=== PATIENT | male | born 1985 | race Caucasian/White ===

== ENCOUNTER 2017-03-11 16:06 | Emergency (ER) | payer OTHER ==
[~2017-03-11] VITALS: Ht 195.6 cm; Wt 93.2 kg
[2017-03-11] MEDS ORDERED: ADVI200C5 PO (16:13)
[2017-03-11] MEDS ORDERED: PERCOCET 5MG/325MG TAB PO ONE (16:45)
[2017-03-11] MEDS ORDERED: KETOROLAC 60 MG/2 ML VIAL (J1885) IM ONE (16:45)
[2017-03-11] MEDS ORDERED: diazePAM 5 MG TAB PO ONE (16:45)
[2017-03-11] MEDS ORDERED: CYCL10TA PO (17:38)
[2017-03-11 17:45] VITALS: BP 131/87
--- NOTE | 2017-03-12 06:43 | REP ---
LUMBAR SPINE COMPLETE: 03/11/2017. Clinical history: Back pain, spasm. Findings: No prior study. The five views show pedicles, spinous and transverse processes intact. Sacral ala, foramina and SI joints unremarkable. Lower thoracic spine and ribs visible were also intact. Oblique views show no sign of spondylolysis or spondylolisthesis. Disc space heights are narrowed at L3-4 and minimally at L5-S1. No compression deformity of destructive lesion seen. Normal lordosis maintained. Impression: 1. Degenerative disc changes with mild disc space narrowing at L3-4 and L5-S1. No spondylolysis or spondylolisthesis. 2. No compression deformity, destructive bone lesion or other acute finding. Signed by Mauricio Mahoney MD 03/12/2017 07:57 A
== END 2017-03-11 17:48 | disposition home or self-care (01) ==
LOC: M ED 16:06
DX: M47.817 Spondylosis without myelopathy or radiculopathy, lumbosacral region (principal)
CPT/HCPCS: 72110; 96372; 99282; J1885

== ENCOUNTER 2017-10-07 08:14 | Emergency (ER) | payer OTHER ==
[2017-10-07] MEDS: AUGMENTIN 875 MG TAB PO (09:18)
== END 2017-10-07 09:23 | disposition home or self-care (01) ==
LOC: M ED 08:14
DX: J01.90 Acute sinusitis, unspecified (principal); Z98.890 Other specified postprocedural states
CPT/HCPCS: 87880

== ENCOUNTER 2019-07-24 13:23 | Emergency (ER) | payer OTHER ==
[~2019-07-24] VITALS: Ht 195.6 cm; Wt 123.6 kg
[~2019-07-24 13:23] MED LIST: ADVI200C5 PO; AUGM875T28 PO; CYCL10TA PO; IBUP1TAB7 PO; MUCI600T37 PO
[2019-07-24] MEDS ORDERED: NS 1,000 ML IV ONE (14:30)
[2019-07-24 14:38] LABS: BASO # 0.1 10^3/uL (0.0-0.2); BASO % 0.8 % (0.0-1.0); EOS # 0.2 10^3/uL (0.0-0.5); HEMATOCRIT 52.1 % (42.0-52.0); HEMOGLOBIN 17.2 g/dl (13.5-17.5); LYMPH # 1.5 10^3/uL (1.5-5.0); LYMPH % 19.6 % (24.0-44.0); MEAN CORPUSCULAR HEMOGLOBIN 32.3 pg (27.0-33.0); MEAN CORPUSCULAR VOLUME 97.7 fl (80.0-96.0); MONO # 0.7 10^3/uL (0.0-0.8); MONO % 9.4 % (0.0-5.0); NEUTROPHILS # 5.1 10^3/uL (1.5-8.5); NEUTROPHILS % 67.9 % (36.0-66.0); PLATELET COUNT, AUTOMATED 297 10^3/uL (150-450); RED BLOOD COUNT 5.33 10^6/uL (4.30-6.10); WHITE BLOOD COUNT 7.5 10^3/uL (4.0-10.0)
[2019-07-24] MEDS: GASTROGRAFIN SOLUTION 30ML PO SCH ×2 (15:08→15:27)
[2019-07-24 15:12] LABS: ALBUMIN 4.6 GM/DL (3.2-5.2); ALT/SGPT 136 U/L (12-78); BILIRUBIN,DIRECT 0.2 MG/DL (0.0-0.2); BILIRUBIN,TOTAL 0.6 MG/DL (0.2-1.0); BLOOD UREA NITROGEN 13 MG/DL (7-18); CALCIUM LEVEL 9.5 MG/DL (8.5-10.1); CARBON DIOXIDE LEVEL 21 MEQ/L (21-32); CHLORIDE LEVEL 108 MEQ/L (98-107); CREATININE FOR GFR 1.07 MG/DL (0.70-1.30); GLOMERULAR FILTRATION RATE > 60.0 (>60); GLUCOSE, FASTING 94 MG/DL (70-100); LIPASE 132 U/L (73-393); POTASSIUM SERUM 4.3 MEQ/L (3.5-5.1); SODIUM LEVEL 140 MEQ/L (136-145); TOTAL PROTEIN 8.6 GM/DL (6.4-8.2)
[2019-07-24] MEDS ORDERED: ISOVUE-370 76% 100ML VIAL (Q9967) As Ordered ONE (17:23)
[2019-07-24] MEDS ORDERED: FLAG500T PO (19:46)
[2019-07-24] MEDS ORDERED: CIPR-249 PO (19:46)
[2019-07-24] MEDS ORDERED: metroNIDAZOLE (FLAGYL) 500 MG TAB PO ONE (20:00)
[2019-07-24] MEDS ORDERED: CIPROFLOXACIN 500 MG TAB PO ONE (20:00)
[2019-07-24 20:04] VITALS: BP 158/105
== END 2019-07-24 20:06 | disposition home or self-care (01) ==
LOC: M ED 13:23
DX: K42.9 Umbilical hernia without obstruction or gangrene (principal); K52.89 Other specified noninfective gastroenteritis and colitis
CPT/HCPCS: 74177; 80048; 80076; 83605; 83690; 85025; 86850; 86900; 86901; 96360; 96361; 99284; Q9963; Q9967

== ENCOUNTER → 2020-08-17 | Outpatient (CLI) | payer SELFPAY ==
[~2020-08-17] MED LIST changes: +ACET-683 PO; +ACET-897 PO; +CIPR-249 PO; +CYCL-707 PO; -CYCL10TA PO; +FLAG500T PO; +MELA2.5C2 PO
== END ==
LOC: M LABSMTC 10:53
PROVIDERS: ATTEND Pediatrics
DX: Z20.822 Contact with and (suspected) exposure to COVID-19 (principal)

== ENCOUNTER 2020-08-19 18:50 | Observation (INO) | payer OTHER, SELFPAY ==
[~2020-08-19] VITALS: Ht 195.6 cm; Wt 135.5 kg
[~2020-08-19 18:50] MED LIST changes: -ACET-683 PO; -ACET-897 PO; -MELA2.5C2 PO
--- OUTSIDE RECORDS SUMMARY | 2020-08-19 18:56 | CCD ---
Author Author [facility] Organization [facility] Address Unknown Phone Unavailable Care Team Providers Care Apron Trimmer Name Role Phone Joaquin ROBLES MD Unavailable Unavailable Joaquin ROBLES MD Unavailable Unavailable Joaquin ROBLES MD Unavailable Unavailable Joaquin ROBLES MD Unavailable Unavailable Joaquin ROBLES MD Unavailable Unavailable Joaquin ROBLES MD Unavailable Unavailable Joaquin ROBLES MD Unavailable Unavailable Joaquin ROBLES MD Unavailable Unavailable Joaquin ROBLES MD Unavailable Unavailable Joaquin ROBLES MD Unavailable Unavailable Joaquin ROBLES MD Unavailable Unavailable Joaquin ROBLES MD Unavailable Unavailable Joaquin ROBLES MD Unavailable Unavailable Josefina Pimentel PA Unavailable Unavailable Myrna Zarco MD Unavailable Unavailable Myrna Zarco MD Unavailable Unavailable Myrna Zarco MD Unavailable Unavailable Myrna Zarco MD Unavailable Unavailable Myrna Zarco MD Unavailable Unavailable Myrna Zarco MD Unavailable Unavailable Myrna Zarco MD Unavailable Unavailable Myrna Zarco MD Unavailable Unavailable Myrna Zarco MD Unavailable Unavailable Chance Patrick DO Unavailable Unavailable SILVANO, ABDIRAHMAN PA Unavailable Unavailable SILVANO, ABDIRAHMAN PA Unavailable Unavailable SILVANO, ABDIRAHMAN PA Unavailable Unavailable SILVANO, ABDIRAHMAN PA Unavailable Unavailable SILVANO, ABDIRAHMAN PA Unavailable Unavailable SILVANO, ABDIRAHMAN PA Unavailable Unavailable SILVANO, ABDIRAHMAN PA Unavailable Unavailable SILVANO, ABDIRAHMAN PA Unavailable Unavailable SILVANO, ABDIRAHMAN PA Unavailable Unavailable SILVANO, ABDIRAHMAN PA Unavailable Unavailable Johnny Patterson DO Unavailable Unavailable [place], Johnny DO Unavailable Unavailable [place], Johnny DO Unavailable Unavailable [place], Johnny DO Unavailable Unavailable Leonardo, Johnny DO Unavailable Unavailable Varsha Auguste MD Unavailable Unavailable Chance Patrick DO Unavailable Unavailable NOSTROM, CHETNA PRODUCTION SUPV Unavailable Unavailable NOSTROM, CHETNA PRODUCTION SUPV Unavailable Unavailable NOSTROM, CHETNA PRODUCTION SUPV Unavailable Unavailable NOSTROM, CHETNA PRODUCTION SUPV Unavailable Unavailable NOSTROM, CHETNA PRODUCTION SUPV Unavailable Unavailable NOSTROM, CHETNA PRODUCTION SUPV Unavailable Unavailable NOSTROM, CHETNA PRODUCTION SUPV Unavailable Unavailable NOSTROM, CHETNA PRODUCTION SUPV Unavailable Unavailable NOSTROM, CHETNA PRODUCTION SUPV Unavailable Unavailable NOSTROM, CHETNA PRODUCTION SUPV Unavailable Unavailable NOSTROM, CHETNA PRODUCTION SUPV Unavailable Unavailable NOSTROM, CHETNA PRODUCTION SUPV Unavailable Unavailable NOSTROM, CHETNA PRODUCTION SUPV Unavailable Unavailable YOUNG, A GEENA QUEEN PRODUCER Unavailable Unavailable YOUNG, A GEENA QUEEN PRODUCER Unavailable Unavailable YOUNG, A GEENA QUEEN PRODUCER Unavailable Unavailable YOUNG, A GEENA QUEEN PRODUCER Unavailable Unavailable YOUNG, A GEENA QUEEN PRODUCER Unavailable Unavailable Yves Arevalo QUEEN PRODUCER Unavailable Unavailable Fabricio CHAVEZ MD Unavailable Unavailable Fabricio CHAVEZ MD Unavailable Unavailable Fabricio CHAVEZ MD Unavailable Unavailable Fabricio CHAVEZ MD Unavailable Unavailable Fabricio CHAVEZ MD Unavailable Unavailable Fabricio CHAVEZ MD Unavailable Unavailable Fabricio CHAVEZ MD Unavailable Unavailable Fabricio CHAVEZ MD Unavailable Unavailable Fabricio CHAVEZ MD Unavailable Unavailable Fabricio CHAVEZ MD Unavailable Unavailable Fabricio CHAVEZ MD Unavailable Unavailable Fabricio CHAVEZ MD Unavailable Unavailable Fabricio CHAVEZ MD Unavailable Unavailable Fabricio CHAVEZ MD Unavailable Unavailable Fabricio CHAVEZ MD Unavailable Unavailable Fabricio CHAVEZ MD Unavailable Unavailable Fabricio CHAVEZ MD Unavailable Unavailable Fabricio CHAVEZ MD Unavailable Unavailable Fabricio CHAVEZ MD Unavailable Unavailable Fabricio CHAVEZ MD Unavailable Unavailable Fabricio CHAVEZ MD Unavailable Unavailable Fabricio CHAVEZ MD Unavailable Unavailable Fabricio CHAVEZ MD Unavailable Unavailable Fabricio CHAVEZ MD Unavailable Unavailable Fabricio CHAVEZ MD Unavailable Unavailable Fabricio CHAVEZ MD Unavailable Unavailable Fabricio CHAVEZ MD Unavailable Unavailable Fabricio CHAVEZ MD Unavailable Unavailable Fabricio CHAVEZ MD Unavailable Unavailable Fabricio CHAVEZ MD Unavailable Unavailable Fabricio CHAVEZ MD Unavailable Unavailable Fabricio CHAVEZ MD Unavailable Unavailable Fabricio CHAVEZ MD Unavailable Unavailable Fabricio CHAVEZ MD Unavailable Unavailable Fabricio CHAVEZ MD Unavailable Unavailable Fabricio CHAVEZ MD Unavailable Unavailable Fabricio CHAVEZ MD Unavailable Unavailable Fabricio CHAVEZ MD Unavailable Unavailable Fabricio CHAVEZ MD Unavailable Unavailable LORALEX BOWDEN MD Unavailable Unavailable LORKAL, ALEX MD Unavailable Unavailable LORENC, ALEX MD Unavailable Unavailable LORENC, ALEX MD Unavailable Unavailable LORENC, ALEX MD Unavailable Unavailable LORENC, ALEX MD Unavailable Unavailable LORENC, ALEX MD Unavailable Unavailable Isma Carrillo MD Unavailable Unavailable Isma Carrillo MD Unavailable Unavailable Isma Carrillo MD Unavailable Unavailable MILADIS, IMTIAZ PA Unavailable Unavailable MILADIS, IMTIAZ PA Unavailable Unavailable MILADIS, IMTIAZ PA Unavailable Unavailable MILADIS, IMTIAZ PA Unavailable Unavailable MILADIS, IMTIAZ PA Unavailable Unavailable MILADIS, IMTIAZ PA Unavailable Unavailable MILADIS, IMTIAZ PA Unavailable Unavailable MILADIS, IMTIAZ PA Unavailable Unavailable MILADIS, IMTIAZ PA Unavailable Unavailable MILADIS, IMTIAZ PA Unavailable Unavailable MILADIS, IMTIAZ PA Unavailable Unavailable MILADIS, IMTIAZ PA Unavailable Unavailable MILADIS, IMTIAZ PA Unavailable Unavailable MILADIS, IMTIAZ PA Unavailable Unavailable MILADIS, IMTIAZ PA Unavailable Unavailable Hayes Ortiz Unavailable Unavailable NO, PCP Unavailable Unavailable Re-disclosure Warning The records that you are about to access may contain information from federally-assisted alcohol or drug abuse programs. If such information is present, then the following federally mandated warning applies: This information has been disclosed to you from records protected by federal confidentiality rules (42 CFR part 2). The federal rules prohibit you from making any further disclosure of this information unless further disclosure is expressly permitted by the written consent of the person to whom it pertains or as otherwise permitted by 42 CFR part 2. A general authorization for the release of medical or other information is NOT sufficient for this purpose. The Federal rules restrict any use of the information to criminally investigate or prosecute any alcohol or drug abuse patient.The records that you are about to access may contain highly sensitive health information, the redisclosure of which is protected by Article 27-F of the [facility] Public Health law. If you continue you may have access to information: Regarding HIV / AIDS; Provided by facilities licensed or operated by the [facility] Office of Mental Health; or Provided by the [facility] Office for People With Developmental Disabilities. If such information is present, then the following [facility] mandated warning applies: This information has been disclosed to you from confidential records which are protected by state law. State law prohibits you from making any further disclosure of this information without the specific written consent of the person to whom it pertains, or as otherwise permitted by law. Any unauthorized further disclosure in violation of state law may result in a fine or long term sentence or both. A general authorization for the release of medical or other information is NOT sufficient authorization for further disc losure. Allergies and Adverse Reactions Type Description Substance Reaction Status Data Source(s ) No Known Drug Allergies No Known Drug Allergies [facility] No Known Environmental Allergies No Known Environmental Al lergies [facility] No Known Food Allergies No Known Food Allergies [facility] Family History Family Member Name Family Member Gender Family Member Status Date o f Status Description Data Source(s) Unknown Male Problem [facility] ([facility]) Encounters Encounter Providers Location Date Indications Data Source(s ) Outpatient Attender: VIJAY CHAVEZ MD [facility] 10/2019 08:14:00 PM EDT - 04/08/2020 08:15:00 PM EDT Z11.59 [facility] Z11.59 Patient discharged. Outpatient Attender: GEENA MELENDEZP [facility] 01:31:00 PM EDT - 03/31/2020 01:32:00 PM EDT Z11.59 [facility] Z11.59 Patient discharged. Emergency Attender: Chetna Ortiz RN PAttender: CHETNA ORTIZ NPAttender: ALEX MARISCAL MD [facility] 11/29/2019 03:35:00 AM EDT - 11/29/2019 04:12:00 AM EDT COUGH [facility] COUGH Patient discharged. Outpatient Attender: Abdirahman Pimentel PAAttender: ELIZABETH GONZALEZ [facility] 11/09/2019 02:44:00 PM EDT - 11/09/2019 02:45:00 PM EDT R05 [facility] R05 Patient discharged. Outpatient Attender: CARRIE ROBLES MDConsultant: PCP NO 09/11/2019 02:35:00 PM EST - 09/11/2019 02:35:00 PM EST [facility] Emergency Attender: Larisa Auguste MDAttender: Jace gifford MD [facility]-ED 08/07/2019 07:36:00 PM EST - 08/08/2019 02:10:00 AM EST ABDOMINAL PAIN, RECTAL BLEEDING [facility] ABDOMINAL PAIN, RECTAL BLEEDING Patient discharged. Emergency Attender: Chance Patrick DOAttender: Chance trinidad DO [facility] 07/21/2019 10:58:00 PM EST - 07/22/2019 12:16:00 AM EST POST SURGICAL PAIN [facility] POST SURGICAL PAIN Patient discharged. Emergency Attender: Johnny Patterson DOAttender: IMTIAZ RILEY CARLOS [facility]-ED 07/10/2019 10:55:00 PM EST - 07/11/2019 01:44:00 AM EST RECTAL FOREIGN BODY [facility] RECTAL FOREIGN BODY Patient discharged. Outpatient Attender: Monik Zarco MD [facility] 06/27 10:32:00 AM EST - 06/27/2019 10:33:00 AM EST A63.0 [facility] A63.0 Patient discharged. Emergency Attender: Korin Arevalo FNPAtte nder: Jace Carrillo MDReferrer: Monik Zarco MD [facility] 06/16/2019 09:55:00 AM EST - 06/16/2019 01:02:00 PM EST WEAKNESS/HOT-COLD CHILLS/ANAL FISTUAL REPAIR 06/03 [facility] WEAKNESS/HOT-COLD CHILLS/ANAL FISTUAL RE PAIR 06/03 Patient discharged. Insurance Providers Payer name Policy type / Coverage type Policy ID Covered democrat ID Covered democrat's relationship to wallis Policy Wallis Plan Information [employer] [id number] SP [id number] SELF PAY ONLY [id number] SP [id number] [facility] [id number] Other [id number] [facility] [id number] Other [id number] [facility] [place] [id number] 18 [id number] [facility] [employer] [place] [id number] 18 [id number] ACTIVE DUTY [id number] SP [id number] [facility] [employer] [id number] Self [id number] SELF PAY UNAVAILABLE UNAVAILA BLE Problems, Conditions, and Diagnoses Code Display Name Description Problem Type Effective Dates Data Source(s) Z20.828 Contact with and (suspected) exposure to other viral communicable diseases CONTACT W AND EXPOSURE TO OTH VIRAL COMMUNICABLE DISEASES Di agnosis 03/31/2020 01:31:00 PM EDT [facility] K605 Anorectal fistula Anorectal fistula Diagnosis 09/11/2019 02:35:00 PM [facility] F17.290 Nicotine dependence, other tobacco produ ct, uncomplicated NICOTINE DEPENDENCE, OTHER TOBACCO PRODUCT, UNCOMPLICATED Diagnosis 08/07 07:36:00 PM [facility] Z09 Encounter for follow-up exam ination after completed treatment for conditions other than malignant neoplasm ENCNTR FOR F/U EXAM AFT TRTMT FOR COND O TH THAN MALIG NEOPLM Diagnosis 08/07/2019 07:36:00 PM [facility] K62.89 Other specified diseases of anus and rec xochitl OTHER SPECIFIED DISEASES OF ANUS AND RECTUM Diagnosis 08/07/2019 07:36:00 PM [facility] Surgeries/Procedures Procedure Description Date Indications Data Source(s) [id number] 11/29/2019 12:00:00 AM EDT [facility] EMERGENCY DEPARTMENT VISIT MODERATE SEVERITY EMERGENCY DEPT VISIT [facility]CONTRAST MATERIAL CT ABD & PELV W/CONTR AST 08/07/2019 12:00:00 AM [facility] Low osmolar contrast material, 300-399 mg/ml iodine concentr ation, per ml 08/07/2019 12:00:00 AM [facility] CULTURE BACTERIAL BLOOD AEROBIC W/ID ISOLATES BLOOD CULTURE FOR BACTERIA 08/07/2019 12:00:00 AM [facility] BLOOD COUNT COMPLETE AUTO&AUTO DIFRNTL WBC COUNT COMPLETE CB C W/AUTO DIFF WBC 08/07/2019 12:00:00 AM [facility] LACTATE ASSAY OF LACTIC ACID 08/07/2019 12:00:00 AM [facility] C-REACTIVE PROTEIN C-REACTIVE PROTEIN 08/07/2019 12:00:00 AM [facility] COMPREHENSIVE METABOLIC PANEL COMPREHEN METABOLIC PANEL 09/2019 12:00:00 AM [facility] COLLECTION VENOUS BLOOD VENIPUNCTURE ROUTINE VENIPUNCTURE 12:00:00 AM [facility] EMERGENCY DEPARTMENT VISIT HIGH/URGENT SEVERITY EMERGENCY DE PT VISIT 08/07/2019 12:00:00 AM [facility] EMERGENCY DEPARTMENT VISIT LIMITED/MINOR PROB EMERGENCY DEPT VISIT 07/21/2019 12:00:00 AM [facility] Results ID Date Data Source [id number] 04/11/2020 10:53:00 AM EDT [facility] COVID-19 Patient Ethnicity Not or LatinoCOVID-19 Patient Race WhiteCOVID-19 Specimen Source Nasopharyngeal Name Value Range Interpretation Code Description Data Kat rce(s) Supporting Document(s) SARS-CoV-2 RNA Undetected Normal (applies to non-numeric r esults) [facility] SARS-CoV-2 RNA absent. This result does not rule out COVID-19 in the patient, as the sensitivity of the test depends on the timing of the specimen collection and the quality of the specimen. Result should be correlated with patient's history and clinical presentation. Patient Race Normal (applies to non-numeric res ults) [facility] Patient Ethnicity Normal (applies to non-numeri c results) [facility] Method Summary Normal (applies to non-numeric r esults) [facility] BELLA- This test uses the bella SARS-CoV -2 assay ([employer] and is performed on the bella 6800 System. It has received Emergency Use Authorization (EUA) by the U.S. Food and Drug Administration. Performance characteristics were verified by [facility] in a manner consistent with CLIA requirements. Fact sheets for this Emergency Use Authorization (EUA) can be found at the following links: https://www.fda.gov/media/217703/download for Healthcare Providers https://www.fda.gov/media/804407/download for Patients Test Performed by: [address] [address] [employer] Operator: Chetna Ziegler M.D. Ph.D.; CLIA# [id number] ID Date Data Source [id number] 04/08/2020 02:50:00 PM EDT [facility] Name Value Range Interpretation Code Description Data Kat rce(s) Supporting Document(s) SARS-CoV-2 RNA Resp Ql CONCEPCION+probe [facility] This lab was ordered by [facility] wong and reported by [facility]. ID Date Data Source [id number] 03/31/2020 01:31:00 PM EDT [facility] Name Value Range Interpretation Code Description Data Kat rce(s) Supporting Document(s) SARS coronavirus 2 RNA [facility] This lab was ordered by [facility] wong and reported by [facility]. ID Date Data Source [id number] 04/03/2020 08:23:00 AM EDT [facility] Name Value Range Interpretation Code Description Data Kat rce(s) Supporting Document(s) SARS-CoV-2 CONCEPCION result Not Detected Normal (applies to non- numeric results) [facility] This test was developed and its performa nce characteristics determined by [facility]. This test has not been FDA cleared or approved. This test has been authorized by FDA under an Emergency Use Authorization (EUA). This test is only authorized for the duration of time the declaration that circumstances exist justifying the authorization of the emergency use of in vitro diagnostic tests for detection of SARS-CoV-2 virus and/or diagnosis of COVID-19 infection under section 564(b)(1) of the Act, 21 U.S.C. 360bbb- 3(b)(1), unless the authorization is terminated or revoked sooner. When diagnostic testing is negative, the possibility of a false negative result should be considered in the context of a patient's recent exposures and the presence of clinical signs and symptoms consistent with COVID-19. An individual without symptoms of COVID-19 and who is not shedding SARS-CoV-2 virus would expect to have a negative (not detected) result in this assay. Performed at: [facility] [id number] [employer]: Jessica Lucio MD, Phone: [phone] ID Date Data Source [id number] 11/29/2019 03:35:00 AM EDT [facility] Name: ROHIT HOWARD [facility] Rec #: [id number] : 1985 Age/Sex: 34M Date of Service: 11/29/19 PHYSICIAN CHART Physician Documentation [facility] Name: Rohit Howard Age: 34 yrs Sex: Male : 1985 Arrival Date: 11/29/2019 Time: 03:35 Bed EDRU-4 Private MD: Nacho Ellington ED Physician Alex Mariscal HPI: 11/28 04:02 This 34 yrs old Male presents to ER via Walk-In wn with complaints of Cough. 04:02 Patient is a generally healthy 34-year-old male presents to wn the emergency room for evaluation of a cough. Patient states that his significant other has had possible cold exposure through her place of employment. She has been symptomatic with a cough of the past few weeks. She has been tested twice, the first time was negative. The second results are pending. He denies fever, change of sense of taste or smell.. Historical: - Allergies: No known drug Allergies; - Home Meds: 1. None - PMHx: Colon infection; - PSHx: Operative procedure on knee; FISTULA SURGERY; - Med Reconciliation:: Green Alert: The patient's med list is complete to the best of the nurse's/provider's knowledge. Medications reviewed, completed by nurse using patient's med list. - Immunization history: The patients tetanus immunization is up to date. - Advance directive: There is no existing advanced directive. Information offered. - Family History:: mother : unknown medical history. Father : unknown medical history. - Social History: Smoking status (Tobacco): Patient states he/she has never smoked tobacco. Preferred Language: Gibraltarian. ROS: 04:03 Constitutional: Negative for fever. Respiratory: Positive wn for cough, with no reported sputum. Exam: 04:03 Respiratory: Exam negative for abnormalities, Breath wn sounds: are normal. 04:03 Constitutional: This is a well developed, well nourished wn patient who is awake, alert, afebrile and in no acute distress. Head/Face: Normocephalic, atraumatic. Eyes: anicteric, no pallor Cardiovascular: Regular rate and rhythm Skin: Warm, dry with normal turgor. Normal color with no rashes, no lesions, and no evidence of cellulitis. Vital Signs: 03:52 BP 146 / 108; Pulse 104; Resp 20; Temp 98.7; Pulse Ox 97% kl1 on R/A; Weight 120.2 kg; Height 6 ft. 5 in. (195.58 cm); 03:52 Body Mass Index 31.42 (120.20 kg, 195.58 cm) kl1 MDM: 03:57 Patient medically screened. wn 04:03 Data reviewed: vital signs, nurses notes. wn 04:03 ED course: Patient presents for COVID-19 testing. He wn demonstrates no signs of hypoxia or significant illness. At this point do not feel he needs ancillary labs to evaluate for secondary HL H. I will do the COVID-19 testing and pelvic health we will follow-up with him.. Dispensed Medications: No medications were administered Disposition Summary: 11/29/19 04:04 Discharge Ordered Location: Home/Self Care wn Condition: Good wn Diagnosis - Cough wn Followup: wn - With: Nacho Ellington - When: 1 week - Reason: Discharge Instructions: - Discharge Summary Sheet wn - Cough, Adult wn Forms: - Medication Reconciliation wn Prescriptions: - benzonatate 200 mg Oral Capsule - take 1 capsule by ORAL route 3 times per day as wn needed; 30 capsule; Refills: 0, Product Selection Permitted Signatures: Chetna Ortiz RNP RNP wn [place], Kevin RN RN kl1 Name Value Range Interpretation Code Description Data Kat rce(s) Supporting Document(s) ID Date Data Source [id number] 11/29/2019 03:35:00 AM EDT [facility] Name: ROHIT HOWARD [facility] Rec #: [id number] : 1985 Age/Sex: 34M Date of Service: 11/29/19 NURSE CHART Nurse's Notes [facility] Name: Rohit Howard Age: 34 yrs Sex: Male : 1985 Arrival Date: 11/29/2019 Time: 03:35 Bed [facility] MD: Nacho Ellington Diagnosis: Cough Presentation: 11/28 03:51 Transition of care: p atient was not received from another [facility] setting of care. Presenting complaint: Patient states - Patient states has been coughing for a week. Patient states significant other has possible covid exposure and has been coughing around him for the past few days. Have you travelled in the last 30 days? No. Have you had contact with an individual with a confirmed diagnosis of Ebola or COVID-19? Yes, COVID-19:. 03:51 Method Of Arrival: Walk-In [facility] 03:51 Acuity: Semi-Urgent - 4 [facility] Triage Assessment: 03:52 SEPSIS SCREEN: A Confirmed or Suspected Infection is [facility] Unknown. Suicide Screening: Have you had thoughts of harming yourself or others? No. The patient appears to have some mild discomfort, The patient is cooperative. No pain is apparent. Historical: - Allergies: No known drug Allergies; - Home Meds: 1. None - PMHx: Colon infection; - PSHx: Operative procedure on knee; FISTULA SURGERY; - Med Reconciliation:: Green Alert: The patient's med list is complete to the best of the nurse's/provider's knowledge. Medications reviewed, completed by nurse using patient's med list. - Immunization history: The patients tetanus immunization is up to date. - Advance directive: There is no existing advanced directive. Information offered. - Family History:: mother : unknown medical history. Father : unknown medical history. - Social History: Smoking status (Tobacco): Patient states he/she has never smoked tobacco. Preferred Language: Gibraltarian. Screenin:55 AUDIT 1. How often do you have a drink containing alcohol? kl1 Never (0 points). Drug Abuse Screening Test: 1. Have you used drugs other than those required for medical reasons? No (0 points), screen is complete, no risk. Abuse screen: Denies threats or abuse. Denies injuries from another. Nutritional screening: No deficits noted. Patient has no identifiable fall risk (Hoffman Scale: 0 points). Vital Signs: 03:52 BP 146 / 108; Pulse 104; Resp 20; Temp 98.7; Pulse Ox 97% kl1 on R/A; Weight 120.2 kg; Height 6 ft. 5 in. (195.58 cm); 03:52 Body Mass Index 31.42 (120.20 kg, 195.58 cm) kl1 ED Course: 03:36 Patient arrived in ED. pc 03:51 Nacho Ellington is Private Physician. kl1 03:52 Triage completed. kl1 03:54 Arm band placed on right wrist. kl1 03:56 Charis West, MUNDO is Primary Nurse. skb 03:57 Chetna Ortiz RNP is PHCP. wn 03:57 Alex Mariscal MD is Attending Physician. wn 04:04 Nacho Ellington is Referral Physician. wn 04:10 COVID- 19 specimens collected by Cece Gutierrez. jlj 04:12 Radiology: None performed. jlj 04:12 Patient has correct armband on for positive identification. j Bed in low position. 04:12 No procedures ordered. jl Administered Medications: No medications were administered Outcome: 04:04 Discharge ordered by . wn 04:11 Patient verbalized understanding of disposition [facility] instructions. Patient has no functional deficits. Patient awake and alert. Oriented to person, place and time. 04:11 Patient discharged to home ambulatory. 04:11 Condition: good Condition: stable Condition: improved 04:11 Discharge instructions given to patient, Patient was instructed on discharge instructions, follow up and referral plans. medication usage, The patient demonstrated understanding of instructions, medications, Prescriptions given X 1. 04:11 Vitals are Complete in accordance with Emergency Department Policy. 04:12 Patient left the ED. jlj Addendum: 11/30/2019 09:14 24 hour call back attempted, no answer. mp3 Signatures: Chetna Ortiz RNP RNP wn Elier Smith, RN RN kl1 Luz Chew MacKenzie RN RN mp3 Charis West, RN RN gustavob Cece Gutierrez RN RN jlj Name Value Range Interpretation Code Description Data Kat rce(s) Supporting Document(s) ID Date Data Source [id number] 11/29/2019 03:35:00 AM EDT [facility] Name: ROHIT HOWARD [facility] Rec #: [id number] : 1985 Age/Sex: 34M Date of Service: 11/29/19 DISPOSITION SUMMARY Discharge Summary [facility] Name:Rohit Howard Emergency Department Age:34 yrs Sex:Male :1985 Arrival:11/29/2019 03:35 Departure Date11/29/2019 Departure Time04:12 Private MD:Nacho Ellington Outcome: Discharge Location: Home/Self Care Condition: Good Chief Complaint: Cough Diagnosis: Cough Prescriptions: benzonatate 200 mg Oral Capsule - take 1 capsule by ORAL route 3 times per day as needed; 30 capsule Follow up: Nacho Ellington Custom Notes: Attending Physician: Alex Mariscal MD Private MD: Nacho Ellington Mid Level Provider: Chetna Ortiz RNP Followup Physician: Nacho Ellington Orders: Benzonatate Discharge Instruction: Discharge Summary Sheet, Cough, Adult , Medication Reconciliation Name Value Range Interpretation Code Description Data Kat rce(s) Supporting Document(s) ID Date Data Source [id number] 12/01/2019 12:41:00 PM EDT [facility] COVID-19 Specimen Source NASOPHARYNGEAL Is Patient admitted or to be admitted? Y Name Value Range Interpretation Code Description Data Kat rce(s) Supporting Document(s) SARS-CoV-2 RNA Negative Normal (applies to non-numeric r esults) [facility] Performing Lab Normal (applies to non-numeric r esults) [facility] Is Patient Admitted or Awaiting Admissio n?:Y COVID-19 Specimen Source: PRODUCTION SUPV NOTE: RESULTS HAVE BEEN REFORMATTED PLEASE REVIEW RESULTS CAREFULLY THE LOCATION OF INFORMATION MAY HAVE CHANGED Test performed [place] [address] ID Date Data Source [id number] 11/29/2019 12:00:[address] [facility] Name Value Range Interpretation Code Description Data Kat rce(s) Supporting Document(s) SARS coronavirus 2 RNA:PrThr:Pt:XXX:Ord:Probe.amp.tar [facility] This lab was ordered by [facility] Marta BACK and reported by [facility]. ID Date Data Source [id number] 11/12/2019 05:09:00 PM EDT [facility] COVID-19 Specimen Source NASOPHARYNGEAL Name Value Range Interpretation Code Description Data Kat rce(s) Supporting Document(s) SARS-CoV-2 RNA Undetected Normal (applies to non-numeric r esults) [facility] SARS-CoV-2 RNA is not detected. ------- ADDITIONAL INFORMATION Testing was performed using the bella SARS-CoV-2 assay ([employer] on the bella 6800 System. Fact sheets for this Emergency Use Authorization (EUA) assay can be found at the following links: For Healthcare Providers: https://www.fda.gov/media/414492/download For Patients: https://www.fda.gov/media/670228/download Test Performed by: [facility] [address] [place] [address] [employer] Operator: Chetna Ziegler M.D. Ph.D.; CLIA# [id number] ID Date Data Source [id number] 11/09/2019 06:45:00 PM EDT [facility] REFLEX TO COVID-19 IF NEGATIVE This Res piratory Panel DOES NOT test for the Novel Coronovirus (2019-nCoV) from [facility]. If patient is suspected of having the Novel 2018 Coronovirus notify the Health Department IMMEDIATELY. Not detectedNot detectedNot detectedNot detectedNot detectedNot detectedNot detectedNot detectedNot detectedNot detectedNot detectedNot detectedNot detectedNot detected Methodology: Multiplexed PCR Reference Range: Not detectedNot detectedNot detectedNot detectedNot detected Name Value Range Interpretation Code Description Data Kat rce(s) Supporting Document(s) ID Date Data Source [id number] 11/09/2019 01:33:00 PM EDT [facility] Name Value Range Interpretation Code Description Data Kat rce(s) Supporting Document(s) SARS-CoV-2 RNA Resp Ql CONCEPCION+probe [facility] This lab was ordered by Lyudmila back and reported by [facility]. ID Date Data Source [id number] 08/07/2019 07:36:00 PM EST [facility] Name: ROHIT HOWARD [facility] Rec #: [id number] : 1985 Age/Sex: 34M Date of Service: 08/07/19 DISPOSITION SUMMARY Discharge Summary [facility] Name:Rohit Howard Emergency Department Age:34 yrs Sex:Male :1985 Arrival:08/07/2019 19:36 Departure Date08/08/2019 Departure Time02:10 Private MD:Nacho Ellington Outcome: Discharge Location: Home/Self Care Condition: Good Chief Complaint: Abdominal Pain, Rectal Bleeding Diagnosis: Rectal or Anus Pain, - Post-operative wound evaluation Prescriptions: Custom Notes: Michael- your labs and CT don't show any active infection. The wound itself looks like it's healing well. Finish your antibiotics until they are completely done. Attending Physician: Larisa Auguste MD Private MD: Nacho Ellington Mid Level Provider: Orders: Cbc With Auto Differential, COMMET, Ct Abdomen & Pelvis with Con, Lactic Acid, Blood Culture - Venous, C- Reactive Protein,Wide Range, Saline Lock Discharge Instruction: Discharge Summary Sheet, Anal Fistula, Medication Reconciliation Name Value Range Interpretation Code Description Data Kat rce(s) Supporting Document(s) ID Date Data Source [id number] 08/07/2019 07:36:00 PM EST [facility] Name: ROHIT HOWARD [facility] Rec #: [id number] : 1985 Age/Sex: 34M Date of Service: 08/07/19 PHYSICIAN CHART Physician Documentation [facility] Name: Rohit Howard Age: 34 yrs Sex: Male : 1985 Arrival Date: 08/07/2019 Time: 19:36 Bed 13 Private MD: Nacho Ellington ED Physician Larisa Auguste HPI: 08/08 01:02 This 34 yrs old Male presents to ER via Walk-In jtv with complaints of Abdominal Pain, Rectal Bleeding. 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 He is finishing a course of Cipro and Flagyl.. 02:08 Tonight, he is complaining of epigastric pain, comes and jtv goes, he has been having this since being on antibiotics, one episode of rectal bleeding with blood on the toilet paper, no clots, and chills related to the pain. His significant other reports that he has had similar episodes of pain since his surgery. He has had multiple CT scans done with IV contrast, but until he went to [place] approximately 12 days ago and had a CT scan done with IV and o ral contrast, they were all negative. This most recent time in [place], the CT scan showed an infection in the ascending and sigmoid colon. He reports that his fistula site is still having small amounts of drainage. He is able to sit down and lie flat. No documented fevers. No vomiting.. Historical: - Allergies: No known drug Allergies; - Home Meds: 1. Cipro 500 mg Oral tab 1 tab every 12 hours 2. Flagyl 500 mg Oral tab 1 tab every 8 hours - PMHx: Colon infection; - Med Reconciliation:: Yellow Alert: The patient's home medication list is partly complete. However, additional information is required to complete list. Medications reviewed, completed by nurse verbally from patient/family. - Immunization history: Flu vaccine is not up to date. It has been more than one year since last vaccine. - Advance directive: There is no existing advanced directive. Information offered. - Family History:: mother is healthy. - Hospitalizations: : as above. - Social History: Smoking status (Tobacco): Patient admits to using chewing tobacco, Preferred Language: Gibraltarian. - The history of the events were obtained from: the patient. ROS: 02:10 Constitutional: See HPI. Abdomen/GI: See HPI. : Negative jtv for urinary symptoms. Skin: Negative for diaphoresis, pallor, rash. Neuro: Negative for dizziness, headache, syncope. All other systems are negative. Exam: 02:11 Head/Face: Normocephalic, atraumatic. Cardiovascular: jtv Regular rate and rhythm with a normal S1 and S2. No gallops, murmurs, or rubs. No edema. Respiratory: No respiratory distress. Normal work of breathing. Clear to auscultation bilaterally. 02:11 Constitutional: The patient appears to have no acute distress, appears afebrile, appears alert, is not diaphoretic, does not appear to be toxic, well hydrated, appears well nourished. 02:11 Abdomen/GI: Inspection: obese, Bowel sounds: normal, Palpation: abdomen is soft and non-tender, involuntary guarding, is not appreciated, rebound tenderness, is not appreciated, Rectal exam: the spouse/significant other acts as a physical ther, incision well-healed, no drainage, no erythema. ROSALVA deferred. . 02:11 Skin: Appearance: Color: normal in color, Temperature: normal temperature, no rash present. 02:11 Neuro: Orientation: is normal, Mentation: is no rmal, Memory: is normal, Motor: is normal. 02:11 Psych: Behavior/mood is pleasant, cooperative, Affect is calm. Vital Signs: 08/07 20:29 BP 153 / 106; Pulse 111; Resp 20; Temp 98.4; Pulse Ox 98% edv on R/A; Weight 128 kg; Height 6 ft. 5 in. (195.58 cm); 23:18 BP 148 / 91; Pulse 76; Resp 20; Temp 98.7; Pulse Ox 98% ; jv2 08/08 01:04 BP 145 / 99; Pulse 85; Resp 16; Temp 97.7; Pulse Ox 97% ; jv2 02:04 BP 150 / 104; Pulse 87; Resp 16; Temp 97.6; Pulse Ox 100% ; jv2 08/07 20:29 Body Mass Index 33.46 (128.00 kg, 195.58 cm) edv MDM: 08/07 22:20 Patient medically screened. jtv 08/08 01:58 Data reviewed: vital signs, nurses notes, old medical jtv records, lab test result(s), radiologic studies, CT scan. ED course: Patient is a 34-year-old male, status post fistula revision with a seton drain placed in June. Since then, multiple visits for discharge, drainage, incomplete healing, and then a visit to [place] which showed a infection in the sigmoid and ascending colon for which he has been on Cipro and Flagyl. Tonight he returned for resurgence of symptoms, however no drainage seen on exam. In fact, the wound looks good, with no sign of infection. CT scan was done with p.o. contrast in addition to IV as this is how he stated the colitis showed up previously and had been missed on other CTs. His inflammatory markers are all negative here. I reviewed with him and his significant other these findings. They have follow-up planned with an out-of-town surgeon. . 08/07 22:42 Order name: Cbc With Auto Differential; Complete Time: 01:jtv 08/08 01:00 Interpretation: WBC 7.0; HGB 15.2; HCT 44.1; PLT 267. jtv 08/07 22:42 Order name: COMMET; Complete Time: 01:00 jtv 08/08 01:00 Interpretation: Normal except: SGPT(ALT) 197; SGOT(AST) 133.jtv 08/07 22:42 Order name: Ct Abdomen & Pelvis with Con jtv 08/07 22:42 Order name: Lactic Acid; Complete Time: 01: jtv 08/08 01:01 Interpretation: Within normal limits: Lactic 1.7. jtv 08/07 22:42 Order name: Blood Culture - Venous jtv 08/07 22:42 Order name: C-Reactive Protein,Wide Range; Complete Time: jtv :08/08 01:01 Interpretation: Within normal limits: CRP-wr < 2.90. jtv 08/07 22:42 Order name: Saline Lock; Complete Time: 23:10 jtv Dispensed Medications: No medications were administered Disposition Summary: 08/08/19 02:02 Discharge Ordered Location: Home/Self Care jtv Condition: Good jtv Diagnosis - Rectal or Anus Pain jtv - Post- operative wound evaluation jtv Followup: jtv - With: Private Physician - When: surgeon in 3-5 days - Reason: Continuance of care Followup: jtv - With: Emergency Department - When: As needed - Reason: Fever > 101 F, Worsening of condition, worserning pain, pass out, any other concerns. Discharge Instructions: - Discharge Summary Sheet jtv - Anal Fistula jtv Forms: - Medication Reconciliation jtv Signatures: Dispatcher [employer] Tommy Nagy RN RN edv Larisa Auguste MD MD jtMary Funk RN RN jv2 Corrections: (The following items were deleted from the chart) 08/07 20:35 19:59 Allergies: No known drug Allergies; edv edv 20:35 19:59 Home Meds: Colace, Mineral oil, Miralax as needed edv [Inactive]; edv 20:35 19:59 Home Meds: Advil 200 mg Oral tab 2 tabs every 4-6 edv hours [Inactive]; edv 20:35 19:59 PMHx: reocurring abscess; edv edv 20:35 19:59 PSHx: Fistula 2018; May 2019 and 2 in 2017; edv edv 20:35 19:59 PSHx: Hemmorrhoid; edv edv 20:35 19:59 PSHx: knee, left; 3 times total; edv edv 20:35 19:59 PSHx: Myringotomy and insertion of tympanic edv ventilation tube; edv 20:36 19:59 Immunization history Flu vaccine is up to date. edv edv 20:36 19:59 Advance directive There is no existing advanced edv directive. Information offered. edv 20:36 19:59 Social History Smoking status (Tobacco): Patient edv states he/she has never smoked tobacco. No barriers to communication noted, Speaks appropriately for age, edv Name Value Range Interpretation Code Description Data Kat rce(s) Supporting Document(s) ID Date Data Source [id number] 08/07/2019 07:36:00 PM EST [facility] Name: ROHIT HOWARD [facility] Rec #: [id number] : 1985 Age/Sex: 34M Date of Service: 08/07/19 NURSE CHART Nurse's Notes [facility] Name: oRhit Howard Age: 34 yrs Sex: Male : 1985 Arrival Date: 08/07/2019 Time: 19:36 Bed 13 Private MD: Nacho Ellington Diagnosis: Rectal or Anus Pain;Post-operative wound evaluation Presentation: 08/07 19:57 Transition of care: patient was not received from another edv setting of care. Patient denies any travel outside the [place] in the last 30 days. 19:57 Method Of Arrival: Walk-In edv 20:31 Presenting complaint: Patient states - Infection to colon edv with rectal bleeding and dizziness. C/o abdominal wide pain. 20:31 Acuity: Urgent - 3 edv Triage Assessment: 20:32 SEPSIS SCREEN: A Confirmed or Suspected Infection is edv Unknown, their temperature is not <96.8 or >100.9, their heart rate is >90, their RR is not >20, it is unknown if their WBC is <4 or >12, the patient does not have new or unexplained altered mental status. SIRS or Sepsis criteria is not present. The patient appears to have some mild discomfort. The patient is behaving appropriately according to age, cooperative. GI: The patient reports lower abdominal pain, upper abdominal pain, rectal bleeding. Historical: - Allergies: No known drug Allergies; - Home Meds: 1. Cipro 500 mg Oral tab 1 tab every 12 hours 2. Flagyl 500 mg Oral tab 1 tab every 8 hours - PMHx: Colon infection; - Med Reconciliation:: Yellow Alert: The patient's home medication list is partly complete. However, additional information is required to complete list. Medications reviewed, completed by nurse verbally from patient/family. - Immunization history: Flu vaccine is not up to date. It has been more than one year since last vaccine. - Advance directive: There is no existing advanced directive. Information offered. - Family History:: mother is healthy. - Hospitalizations: : as above. - Social History: Smoking status (Tobacco): Patient admits to using chewing tobacco, Preferred Language: Gibraltarian. - The history of the events were obtained from: the patient. Screenin:36 AUDIT 1. How often do you have a drink containing alcohol? edv 2 to 4 times a month (2 points) 2. How many standard drinks containing alcohol do you have on a typical day when drink ing? 1 or 2 (0 points) 3. How often do you have five or more drinks on one occasion? Less than monthly (1 point). Drug Abuse Screening Test: 1. Have you used drugs other than those required for medical reasons? No (0 points), screen is complete, no risk. Abuse screen: Denies threats or abuse. Nutritional screening: No deficits noted. Patient has no identifiable fall risk (Hoffman Scale: 0 points). Assessment: 08/08 00:21 See Triage Assessment. GI: Abdomen is non- distended Bowel jv2 sounds present X 4 quads. On palpation, Patient has diffuse abdominal tenderness, The patient reports some rectal bleeding since surgery for a rectal fistula in late May, with discomfort that has increased. +. Vital Signs: 08/07 20:29 BP 153 / 106; Pulse 111; Resp 20; Temp 98.4; Pulse Ox 98% edv on R/A; Weight 128 kg; Height 6 ft. 5 in. (195.58 cm); 23:18 BP 148 / 91; Pulse 76; Resp 20; Temp 98.7; Pulse Ox 98% ; jv2 08/08 01:04 BP 145 / 99; Pulse 85; Resp 16; Temp 97.7; Pulse Ox 97% ; jv2 02:04 BP 150 / 104; Pulse 87; Resp 16; Temp 97.6; Pulse Ox 100% ; jv2 08/07 20:29 Body Mass Index 33.46 (128.00 kg, 195.58 cm) edv ED Course: 08/07 19:38 Patient arrived in ED. guille 19:57 Triage completed. edv 19:58 Daniel Henley MD is Private Physician. edv 19:58 Arm band placed on left wrist. Patient placed in waiting edv room Patient has correct armband on for positive identification. 20:08 Brenda Candelario, RN is Primary Nurse. alc 20:33 Nacho Ellington is Private Physician. edv 22:16 Mary Ross, MUNDO is Primary Nurse. jv2 22:16 Larisa Auguste MD is Attending Physician. jtv 23:17 Patient has correct armband on for positive identification, jv2 Placed in gown, Bed in low position, Call light in reach, Side rails up X 1. 23:17 Labs drawn by ED staff. was sent per order to lab. First jv2 set of blood cultures drawn by mo. Inserted saline lock: 18 gauge in right antecubital area and blood collected. 08/08 00:02 Radiology: The patient went to get his/her CT at 00:02. jv2 00:02 Ct Abdomen & Pelvis with Con Sent. jv2 00:17 Radiology: Patient returned from CT at 00:17. jv2 00:23 No procedures ordered. jv2 01:05 Awaiting radiology results. jv2 02:04 Discontinued IV lock intact, bleeding controlled, pressure jv2 dressing applied, No redness/swelling at site. Administered Medications: No medications were administered Outcome: 02:02 Discharge ordered by . jtv 02:04 Patient verbalized understanding of disposition jv2 instructions. Patient has no functional deficits. 02:04 Patient discharged Pt was transported via Private Vehicle. 02:04 Condition: good 02:04 Discharge instructions given to patient, Patient was instructed on discharge instructions, follow up and referral plans. safety practices, The patient demonstrated understanding of instructions, medications, No prescriptions given. 02:04 Vitals are Complete in accordance with Emergency Department Policy. 02:10 Patient left the ED. jv2 09:57 24 hour call back attempted, no answer js Signatures: Tommy Salgado, Syeda Maciel RN, RN RN js Vieth, Julie, MD MD jtBrenda Tai RN RN alc Vaquez, Jill, MUNDO FLOWER jv2 Chetna Rosa, Reg Reg guille Corrections: (The following items were deleted from the chart) 08/07 20:30 19:58 BP 147 / 86; Pulse 92bpm; Resp 18bpm; Pulse Ox 98% edv RA; Temp 98.0F; 95.25 kg; Height 5 ft. 5 in.; BMI: 34.9; edv 20:31 19:57 Presenting complaint: Patient states - irritation to edv mouth x 2 d edv 20:31 19:57 Acuity: Semi-Urgent - 4 edv edv 20:31 19:57 The patient appears to have no apparent distress, edv obese, The patient is behaving appropriately according to age, crying, edv 20:31 19:57 The patient complains of pain in mouth. The patient edv states the pain began gradually, 2days ago. The quality of the pain is described as burning, edv 20:35 19:59 Allergies: No known drug Allergies; edv edv 20:35 19:59 Home Meds: Colace, Mineral oil, Miralax as needed edv [Inactive]; edv 20:35 19:59 Home Meds: Advil 200 mg Oral tab 2 tabs every 4-6 edv hours [Inactive]; edv 20:35 19:59 PMHx: reocurring abscess; edv edv 20:35 19:59 PSHx: Fistula 2018; May 2019 and 2 in 2017; edv edv 20:35 19:59 PSHx: Hemmorrhoid; edv edv 20:35 19:59 PSHx: knee, left; 3 times total; edv edv 20:35 19:59 PSHx: Myringotomy and insertion of tympanic edv ventilation tube; edv 20:36 19:59 Immunization history Flu vaccine is up to date. edv edv 20:36 19:59 Advance directive There is no existing advanced edv directive. Information offered. edv 20:36 19:59 Social History Smoking status (Tobacco): Patient edv states he/she has never smoked tobacco. No barriers to communication noted, Speaks appropriately for age, edv Name Value Range Interpretation Code Description Data [facility] rce(s) Supporting Document(s) ID Date Data Source [id number] 08/08/2019 12:32:00 AM EST [facility] Name Value Range Interpretation Code Description Data [facility] rce(s) Supporting Document(s) Sodium 139 mmol/L 137-145 Normal (applies to non-numeric resul ts) [facility] Potassium 3.5-5.1 Normal (applies to non-numeric resul ts) [facility] Chloride 106 mmol/L 98-112 Normal (applies to non-numeric resul ts) [facility] Carbon Dioxide CO2 22.0-33.0 Normal (applies to non-numer ic results) [facility] Anion Gap 4.0-11.0 Normal (applies to non-numeric resul ts) [facility] BUN 9 mg/dL 9-20 Normal (applies to non-numeric resul ts) [facility] Creatinine 0.80-1.50 Normal (applies to non-numeric resul ts) [facility] GFR >60 Normal (applies to non-numeric results) [facility] Result based on MDRD formula. Glucose Level 94 mg/dL 74-99 Normal (applies to non-numeric re sults) [facility] The reference range is only applicable w hen fasting. Calcium-Uncorrected 8.4-10.2 Normal (applies to non-nume carmina results) [facility] Corrected Calcium 8.4-10.2 Normal (applies to non-numeri c results) [facility] Bilirubin,Total 0.2-1.3 Normal (applies to non-numeric results) [facility] SGOT(AST) 133 U/L 17-59 Above high normal [facility] SGPT(ALT) 197 U/L 21-72 Above high normal [facility] Alkaline Phosphatase 62 U/L 38-126 Normal (applies to non-num bigg results) [facility] can increase Alkaline Phosp le vels up to 2 times the normal adult value. Normal values for children and adolescents are 2 to 3 times the normal adult value. Total Protein 6.3-8.2 Normal (applies to non-numeric re sults) [facility] Albumin 3.5-5.0 Normal (applies to non-numeric resul ts) [facility] ID Date Data Source [id number] 08/08/2019 12:32:00 AM [facility] Name Value Range Interpretation Code Description Data Kat rce(s) Supporting Document(s) C-Reactive Protein,Wide Range <3.00 Normal (applies t o non-numeric results) [facility] ID Date Data Source [id number] 08/12/2019 11:19:00 PM [facility] 3 hour post Lactic if elevated? Y Name Value Range Interpretation Code Description Data Kat rce(s) Supporting Document(s) Blood Culture-Venous [facility] ID Date Data Source [id number] 08/12/2019 11:19:00 PM [facility] 3 hour post Lactic if elevated? Y Name Value Range Interpretation Code Description Data Kat rce(s) Supporting Document(s) Blood Culture-Venous [facility] ID Date Data Source [id number] 08/07/2019 11:48:00 PM [facility] 3 hour post Lactic if elevated? Y Name Value Range Interpretation Code Description Data Kat rce(s) Supporting Document(s) Lactic Acid 0.4-2.0 Normal (applies to non-numeric resu lts) [facility] ID Date Data Source [id number] 08/07/2019 11:24:00 PM [facility] Name Value Range Interpretation Code Description Data Kat rce(s) Supporting Document(s) White Blood Count 4.8-10.8 Normal (applies to non-numeri c results) [facility] Red Blood Count 4.35-6.08 Normal (applies to non-numeric results) [facility] Hemoglobin 13.0-17.5 Normal (applies to non-numeric resul ts) [facility] Hematocrit 37.7-51.0 Normal (applies to non-numeric resul ts) [facility] Mean Corpuscular Volume 80-94 Normal (applies to non- numeric results) [facility] Mean Corpuscular Hemoglobin 27.0-33.0 Normal (appli es to non-numeric results) [facility] Mean Corpuscular HGB Conc 32.0-36.0 Normal (applies to no n-numeric results) [facility] Red Cell Distribution Width 11.5-14.5 Normal (appli es to non-numeric results) [facility] Platelet Count 267 X10 3/uL 130-450 Normal (applies to non-numeric results) [facility] Mean Platelet Volume 9.6-13.1 Below low normal [facility] Imm Grans% (AUTO) 0.0-2.0 Normal (applies to non-numeri c results) [facility] Neutrophils % (AUTO) 43.0-75.0 Normal (applies to non-num bigg results) [facility] Lymphocytes % (AUTO) 20.5-45.5 Normal (applies to non-num bigg results) [facility] Monocytes % (AUTO) 5.5-11.7 Normal (applies to non-numer ic results) [facility] Eosinophils % (AUTO) 0.7-4.6 Normal (applies to non-num bigg results) [facility] Basophils % (AUTO) 0.2-1.2 Normal (applies to non-numer ic results) [facility] Imm Grans# (AUTO) 0.00-0.50 Normal (applies to non-numeri c results) [facility] Neutrophils # (AUTO) 1.90-7.00 Normal (applies to non-num bigg results) [facility] Lymphocytes # (AUTO) 1.30-3.10 Normal (applies to non-num bigg results) [facility] Monocytes # (AUTO) 0.40-0.70 Normal (applies to non-numer ic results) [facility] Eosinophils# (AUTO) 0.00-0.30 Above high normal [facility] Basophils # (AUTO) 0.00-0.10 Normal (applies to non-numer ic results) [facility] ID Date Data Source [id number] 08/08/2019 12:43:00 AM EST [facility] Hospital Name: ROHIT HOWARD Yves : 1985 Age/Sex: 34M Ordering Provider: Larisa Auguste MD Med Rec #: [id number] Reg Status: REG ER Room #: Date of Service: 08/07/19 Report Number: [id number] cc:Larisa Auguste MD; PCP None Send Report To: EXAM: CT Abdomen and Pelvis with IV contrast CLINICAL HISTORY:PD WITH PO CONTRAST; RECTAL FISTULA POST-OP INFECTION TECHNIQUE: Axial computed tomography images of the abdomen and pelvis with intravenous contrast. CONTRAST:with intravenous contrast. With; APPLIED 100 CC ISOVUE 300 COMPARISON: CT FINDINGS: LUNG BASES: The lung bases appear clear. No pleural effusions are seen. LIVER:Hepatic steatosis is noted. GALLBLADDER AND BILE DUCTS: The gallbladder appears within normal limits. No radioopaque gallstones are seen. No biliary ductal dilatation is evident. PANCREAS: Unremarkable. SPLEEN: Unremarkable. ADRENAL GLANDS: Unremarkable. KIDNEYS, URETERS, AND BLADDER: The kidneys appear within normal limits. There is no hydronephrosis or hydroureter. No urinary calculi are seen. STOMACH AND BOWEL:No definite perirectal abnormalities are seen. APPENDIX:Normal appendix. PERITONEUM: No free fluid. No free air. LYMPH NODES: No lymphadenopathy is evident. REPRODUCTIVE: Unremarkable as visualized. VASCULATURE: No evidence of abdominal aortic aneurysm. BONES: No aggressive appearing osseous lesion. No acute osseous pathology evident. IMPRESSION: No acute intra-abdominal or pelvic abnormality. Fluoroscopy time in seconds: Number of Exposures: Time Portable Image Performed: Contrast Agent in ml: Isovue 300 100 Method of Administration: Intraveneous REPORT SIGNATURE ON FILE Reported By: Jere chicas MD 08/08/1942 Dictation Date/Time: 08/08/1942 Transcribed Date/Time: 08/08/1942 Test Engineering Technician: Name Value Range Interpretation Code Description Data Kat rce(s) Supporting Document(s) ID Date Data Source [id number] 07/21/2019 10:58:00 PM [facility] Hospital Name: ROHIT HOWARD [facility] Rec #: [id number] : 1985 Age/Sex: 34M Date of Service: 07/21/19 DISPOSITION SUMMARY Discharge Summary [facility] Name:Rohit Howard Emergency Department Age:34 yrs Sex:Male :1985 Arrival:07/21/2019 22:58 Departure Date07/22/2019 Departure Time01:04 Private MD:Nacho Ellington Outcome: Eloped Location: Condition: Chief Complaint: Post Surgical Pain Diagnosis: Prescriptions: Custom Notes: Attending Physician: Chance Patrick DO Private MD: Nacho Ellington Mid Level Provider: Orders: Cbc With Auto Differential Discharge Instruction: Name Value Range Interpretation Code Description Data Kat rce(s) Supporting Document(s) ID Date Data Source [id number] 07/21/2019 10:58:00 PM [facility] Hospital Name: ROHIT HOWARD [facility] Rec #: [id number] : 1985 Age/Sex: 34M Date of Service: 07/21/19 PHYSICIAN CHART Physician Documentation [facility] Name: Rohit Howard Age: 34 yrs Sex: Male : 1985 Arrival Date: 07/21/2019 Time: 22:58 Bed Waiting Private MD: Nacho Ellington ED Physician Chance Patrick HPI: 07/22 00:24 This 34 yrs old Male presents to ER via Walk-In ml8 with complaints of Post Surgical Pain. 00:24 Onset: The symptoms/episode began/occurred gradually, 8 ml8 week(s) ago. Severity of symptoms: At their worst the symptoms were severe. The patient has experienced a previous episode. 34-year-old male returns to ER with rectal pain and heavy rectal bleeding. Patient is well-known to me, he recently had a rectal fistula repair by Dr. Zarco, patient continues to have pain and states that he has had heavy bleeding from the wound. He is also agitated because he does not wish Dr. Zarco to evaluate him again. According to the staff, he was rude to the registration and actually threw his bracelet at her when he found out the Dr. Zarco is roofing contractor. ROS: 00:26 Constitutional: See HPI. All other systems are negative. ml8 Exam: 00:26 Constitutional: This is a well developed, well nourished ml8 patient who is awake, alert, and in no acute distress. Head/Face: Normocephalic, atraumatic. Neck: Trachea midline, Supple, full range of motion without nuchal rigidity, or vertebral point tenderness. No Meningismus. Skin: Warm, dry with normal turgor. Normal color with no rashes, no lesions, and no evidence of cellulitis. MS/ Extremity: Pulses equal, no cyanosis. Neurovascular intact. Full, normal range of motion. Neuro: Awake and alert, GCS 15, oriented to person, place, time, and situation. Cranial nerves II-XII grossly intact. Motor strength 5/5 in all extremities. Sensory grossly intact. Cerebellar exam normal. Normal gait. Psych: Agitated but redirectable. Agrees to have blood drawn to check for anemia but is adamant that he does not wish to see Dr. Zarco. Vital Signs: 07/21 23:04 BP 158 / 94 RA Standing (man/reg); Pulse 123; Resp 17; Temp jc3 98.6(TE); Pulse Ox 96% on R/A; Weight 115.67 kg (R); Height 6 ft. 6 in. (198.12 cm) (R); Pain 10/10; 23:04 Body Mass Index 29.47 (115.67 kg, 198.12 cm) jc3 MDM: 07/22 00:24 Order name: Cbc With Auto Differential; Complete Time: 00:59ml8 Dispensed Medications: No medications were administered Disposition Summary: 07/22/19 00:17 Eloped Disposition: After Triage sf2 Reason: Patient left for unknown reason. sf2 Followup: sf2 - With: Emergency Department - When: As needed - Reason: Signatures: Dispatcher [employer] EDAngie Padron sf2 Chance Patrick DO DO ml8 Name Value Range Interpretation Code Description Data Kat rce(s) Supporting Document(s) ID Date Data Source [id number] 07/21/2019 10:58:00 PM [facility] Name: CORINA HOWARDLucio Marinelli [facility] Rec #: [id number] : 1985 Age/Sex: 34M Date of Service: 07/21/19 NURSE CHART Nurse's Notes [facility] Name: Rohit Howard Age: 34 yrs Sex: Male : 1985 Arrival Date: 07/21/2019 Time: 22:58 Bed Waiting Private MD: Nacho Ellington Diagnosis: Presentation: 07/21 23:02 Transition of care: patient was not received from another [facility] setting of care. Presenting complaint: Patient states - surgery 6 weeks ago-fistula patient has had pain/bleeding since (patient states [place] MD Zarco performed surgery. Patient denies any travel outside the [place] in the last 30 days. 23:02 Method Of Arrival: Walk-In [facility] 23:02 Acuity: Urgent - 3 [facility] Triage Assessment: 23:07 SEPSIS SCREEN: A Confirmed or Suspected Infection is jc3 Unknown, their temperature is not <96.8 or >100.9, their heart rate is >90, their RR is not >20, it is unknown if their WBC is <4 or >12, the patient does not have new or unexplained altered mental status. SIRS or Sepsis criteria is not present. The patient appears to be uncomfortable, The patient is behaving appropriately according to age, cooperative. Patient states the pain is currently a 10 / 10 The patient complains of pain in buttocks. The patient states the pain began 6weeks ago. The quality of the pain is described as stabbing, The pain is described as continuous. Neuro: No Neuro Deficit is noted. GI: bleeding heavy bright red, open wound patient states from surgery. Vital Signs: 23:04 BP 158 / 94 RA Standing (man/reg); Pulse 123; Resp 17; Temp 3 98.6(TE); Pulse Ox 96% on R/A; Weight 115.67 kg (R); Height 6 ft. 6 in. (198.12 cm) (R); Pain 10/10; 23:04 Body Mass Index 29.47 (115.67 kg, 198.12 cm) [facility] ED Course: 22:59 Patient arrived in ED. tb1 23:03 Triage completed. jc3 23:04 Nacho Ellington is Private Physician. 3 23:04 Arm band placed on right wrist. Patient placed in waiting [facility] room Patient has correct armband on for positive identification. 07/22 00:24 Leykin, Chance, DO is Attending Physician. ml8 Administered Medications: No medications were administered Outcome: 00:17 Patient left the ED. sf2 01:04 Patient left the ED. sf2 Signatures: Alesha West tb1 Kait Brady, RN RN jc3 Angie Zaman sf2 Chance Patrick, DO ml8 Name Value Range Interpretation Code Description Data Kat rce(s) Supporting Document(s) ID Date Data Source [id number] 07/22/2019 12:41:00 AM EST [facility] Name Value Range Interpretation Code Description Data Kat rce(s) Supporting Document(s) White Blood Count 4.8-10.8 Normal (applies to non-numeri c results) [facility] Red Blood Count 4.35-6.08 Normal (applies to non-numeric results) [facility] Hemoglobin 13.0-17.5 Normal (applies to non-numeric resul ts) [facility] Hematocrit 37.7-51.0 Normal (applies to non-numeric resul ts) [facility] Mean Corpuscular Volume 80-94 Normal (applies to non- numeric results) [facility] Mean Corpuscular Hemoglobin 27.0-33.0 Normal (appli es to non-numeric results) [facility] Mean Corpuscular HGB Conc 32.0-36.0 Normal (applies to no n-numeric results) [facility] Red Cell Distribution Width 11.5-14.5 Normal (appli es to non-numeric results) [facility] Platelet Count 283 X10 3/uL 130-450 Normal (applies to non-numeric results) [facility] Mean Platelet Volume 9.6-13.1 Below low normal [facility] Imm Grans% (AUTO) 0.0-2.0 Normal (applies to non-numeri c results) [facility] Neutrophils % (AUTO) 43.0-75.0 Below low normal [facility] Lymphocytes % (AUTO) 20.5-45.5 Normal (applies to non-num bigg results) [facility] Monocytes % (AUTO) 5.5-11.7 Normal (applies to non-numer ic results) [facility] Eosinophils % (AUTO) 0.7-4.6 Normal (applies to non-num bigg results) [facility] Basophils % (AUTO) 0.2-1.2 Normal (applies to non-numer ic results) [facility] Imm Grans# (AUTO) 0.00-0.50 Normal (applies to non-numeri c results) [facility] Neutrophils # (AUTO) 1.90-7.00 Normal (applies to non-num bigg results) [facility] Lymphocytes # (AUTO) 1.30-3.10 Above high normal [facility] Monocytes # (AUTO) 0.40-0.70 Above high normal [facility] Eosinophils# (AUTO) 0.00-0.30 Above high normal [facility] Basophils # (AUTO) 0.00-0.10 Normal (applies to non-numer ic results) [facility] ID Date Data Source [id number] 07/10/2019 10:55:00 PM [facility] Name: ROHIT HOWARD [facility] Rec #: [id number] : 1985 Age/Sex: 34M Date of Service: 07/10/19 DISPOSITION SUMMARY Discharge Summary [facility] Name:Rohit Howard Emergency Department Age:34 yrs Sex:Male :1985 Arrival:07/10/2019 22:55 Departure Date07/11/2019 Departure Time01:38 Private MD:Monik Zarco MD Outcome: Discharge Location: Home/Self Care Condition: Good Chief Complaint: Rectal Foreign Body Diagnosis: Wound Recheck Prescriptions: Follow up: Monik Zarco MD Custom Notes: <span>Continue sitz baths return to emergency room if increased drainage fever</span><span> pain</span><span> or worsening symptoms.</span>
Attending Physician: Johnny Patterson DO Private MD: Monik Zarco MD Mid Level Provider: Imtiaz Riley PA Followup Physician: Monik Zarco MD Orders: Cbc With Auto Differential, Lactic Acid, HYDROmorphone, Blood Culture - Venous, BMP Discharge Instruction: Discharge Summary Sheet, Wound Care, Adult, Medication Reconciliation Name Value Range Interpretation Code Description Data Kat rce(s) Supporting Document(s) ID Date Data Source [id number] 07/10/2019 10:55:00 PM [facility] Name: ROHIT HOWARD [facility] Rec #: [id number] : 1985 Age/Sex: 34M Date of Service: 07/10/19 PHYSICIAN CHART Physician Documentation [facility] Name: Rohit Howard Age: 34 yrs Sex: Male : 1985 Arrival Date: 07/10/2019 Time: 22:55 Bed 1 Private MD: Monik Zarco L ED Physician Johnny Patterson Disposition: 07/11 00:38 Attestation: I discussed the plan of care with [facility] Provider and agree with what they have documented. The patient requires specialty care. We will contact the appropriate moving consultant for definitive care. 01:33 Chart complete. [facility] HPI: 00:35 This 34 yrs old Male presents to ER via Walk-In [facility] with complaints of Rectal Foreign Body. 00:35 Patient is a 34-year-old male had a hem orrhoidectomy as wjj well as a fistula repair on 06/05/[address] Zarco patient states there was a vessel loop that postoperatively was 2 fall out on its own however patient went for his first follow-up postop appointment and this had not happened after a week patient then gave this process another week and 1/2 to 2 weeks and followed up again with Dr. Zarco and found that it had not fallen out Dr. Zarco attempted to remove it in the office per patient and this was unsuccessful as well patient states that was 2 weeks ago in the Vesseloops still needs to come out or be removed. Patient states this is causing excruciating pain increasing pain around the area his stools are watery due to laxatives that has been taking he denies any fever sweats chills or abdominal pain and no other complaints. Patient states he would like this vessel loop removed.. Historical: - Allergies: No known drug Allergies; - Home Meds: 1. Colace, Mineral oil, Miralax as needed (Last dose: 07/10/2019 18:00) 2. Advil 200 mg Oral tab 2 tabs every 4-6 hours (Last dose: 07/07/2019) - PMHx: reocurring abscess; - PSHx: Hemmorrhoid; Myringotomy and insertion of tympanic ventilation tube; knee, left; 3 times total; Fistula 2017; May 2019 and 2 in 2018; - Med Reconciliation:: Green Alert: The patient's med list is complete to the best of the nurse's/provider's knowledge. Medications reviewed, verbally from patient/family. - Immunization history: The patients tetanus immunization is up to date. All immunizations are up to date. Flu vaccine is not up to date. It has been more than one year since last vaccine. - Advance directive: There is no existing advanced directive. Information offered. - Family History:: mother : unknown medical history. Father : unknown medical history. - Social History: Preferred Language: Gibraltarian Smoking status (Tobacco): Patient admits to using chewing tobacco. ROS: 00:37 Constitutional: Negative for fever, chills, and weight wjj loss. Abdomen/GI: See HPI. All other systems are negative. Exam: 00:38 Constitutional: This is a well developed, well nourished [facility] patient who is awake, alert, and in no acute distress. Neck: Trachea midline, no thyromegaly or masses palpated, and no cervical lymphadenopathy. Supple, full range of motion without nuchal rigidity, or vertebral point tenderness. No Meningismus. Cardiovascular: Regular rate and rhythm with a normal S1 and S2. No gallops, murmurs, or rubs. Normal PMI, no JVD. No pulse deficits. Respiratory: Lungs have equal breath sounds bilaterally, clear to auscultation and percussion. No rales, rhonchi or wheezes noted. No increased work of breathing, no retractions or nasal flaring. Abdomen/GI: Soft, non-tender, with normal bowel sounds. No distension or tympany. No guarding or rebound. No evidence of tenderness throughout. Skin: Warm, dry with normal turgor. Normal color with no rashes, no lesions, and no evidence of cellulitis. MS/ Extremity: Pulses equal, no cyanosis. Neurovascular intact. Full, normal range of motion. 00:38 Abdomen/GI: Rectal exam: Rectal area exam there is a what appears to be a blue elastic band extending from the anal area fixated I did not attempt to remove this band nor did I disturb the area there is no gross pus drainage there is no asymmetry of the buttock region or swelling noted there is excruciating tenderness at the entrance of this band area however.. Vital Signs: 07/10 23:07 BP 148 / 105; Pulse 105; Resp 16; Temp 98.3; Pulse Ox 97% ; cmm Weight 115.67 kg; Height 6 ft. 5 in. (195.58 cm); Pain 10/10; 07/11 00:52 Pain 9/10; rjh 01:36 BP 137 / 89; Pulse 88; Resp 18; Pulse Ox 98% on R/A; Pain rjh 0/10; 07/10 23:07 Body Mass Index 30.24 (115.67 kg, 195.58 cm) cmm MDM: 12/05 23:43 Patient medically screened. wjj 07/11 00:39 Data reviewed: vital signs, nurses notes. w 01:26 Case presented to: Dr. Johnny Patterson. w 01:31 ED course: Patient's vessel loop was removed by Dr. Franz. wjj Patient tolerated the procedure well see procedure note for exact procedure.. 07/11 00:34 Order name: Cbc With Auto Differential; Complete Time: wj07/11 00:34 Order name: Lactic Acid; Complete Time: wjj 07/11 00:34 Order name: Blood Culture - Venous wjj 07/11 00:34 Order name: BMP; Complete Time: w Dispensed Medications: 00:14 Drug: HYDROmorphone 1 mg [hydromorphone 1 mg/mL injection skb syringe (1 mL)] Route: IM; Site: right deltoid; 00:52 Follow up: Pain 04/15 Adult; Response: Pain is decreased [facility] Disposition Summary: 07/11/19 01:34 Discharge Ordered Location: Home/Self Care wj Condition: Good wjj Diagnosis - Wound Recheck wj Followup: w - With: Monik Zarco MD - When: Next week - Reason: Recheck today's complaints, Continuance of care Discharge Instructions: - Discharge Summary Sheet w - Wound Care, Adult wjj Forms: - Medication Reconciliation w Signatures: Dispatcher [employer] EDAnca Griffiths RN RN cmm Imtiaz Riley PA PA w Johnny Patterson DO DO rc3 Charis West RN RN skDaniel Stephen RN RN [facility] Corrections: (The following items were deleted from the chart) 07/10 23:16 23:10 PSHx: knee, left; Anal fissure repair 06/05/19; cmm cmm 23:16 23:10 PSHx: Fistula 2018; 3 times; cmm cmm Name Value Range Interpretation Code Description Data Kat rce(s) Supporting Document(s) ID Date Data Source [id number] 07/10/2019 10:55:00 PM EST [facility] Name: ROHIT HOWARD [facility] Rec #: [id number] : 1985 Age/Sex: 34M Date of Service: 07/10/19 NURSE CHART Nurse's Notes [facility] Name: Rohit Howard Age: 34 yrs Sex: Male : 1985 Arrival Date: 07/10/2019 Time: 22:55 Bed 1 Private MD: Monik Zarco L Diagnosis: Wound Recheck Presentation: 07/10 23:03 Transition of care: p atient was not received from another [facility] setting of care. Presenting complaint: Patient states - Patient states had removed fistula and hemorrhoids 5 weeks ago. States strings are still there and patient state shaving much pain. Patient denies any travel outside the [place] in the last 30 days. Patient denies exposure to sick international traveler in last 30 days. 23:03 Method Of Arrival: Walk-In [facility] 23:03 Acuity: Semi-Urgent - 4 [facility] Triage Assessment: 23:05 The patient appears to be uncomfortable, The patient is [facility] cooperative. Patient states the pain is currently a 10 / 10 The patient complains of pain in rectal. The patient states the pain began from surg 5 weeks ago . The pain is described as continuous. 12 01:38 SEPSIS SCREEN: A Confirmed or Suspected Infection is [facility] Unknown, SIRS or Sepsis criteria is not present. Historical: - Allergies: No known drug Allergies; - Home Meds: 1. Colace, Mineral oil, Miralax as needed (Last dose: 07/10/2019 18:00) 2. Advil 200 mg Oral tab 2 tabs every 4-6 hours (Last dose: 07/07/2019) - PMHx: reocurring abscess; - PSHx: Hemmorrhoid; Myringotomy and insertion of tympanic ventilation tube; knee, left; 3 times total; Fistula 2017; May 2019 and 2 in 2017; - Med Reconciliation:: Green Alert: The patient's med list is complete to the best of the nurse's/provider's knowledge. Medications reviewed, mateusz mendez from patient/family. - Immunization history: The patients tetanus immunization is up to date. All immunizations are up to date. Flu vaccine is not up to date. It has been more than one year since last vaccine. - Advance directive: There is no existing advanced directive. Information offered. - Family History:: mother : unknown medical history. Father : unknown medical history. - Social History: Preferred Language: Gibraltarian Smoking status (Tobacco): Patient admits to using chewing tobacco. Screenin:44 AUDIT 1. How often do you have a drink containing alcohol? [facility] 2 to 3 times a week (3 points) 2. How many standard drinks containing alcohol do you have on a typical day when drinking? 3 or 4 (1 point). Drug Abuse Screening Test: 1. Have you used drugs other than those required for medical reasons? No (0 points), screen is complete, no risk. Abuse screen: Denies threats or abuse. Nutritional screening: No deficits noted. Patient has no identifiable fall risk (Hoffman Scale: 0 points). Assessment: 00:42 GI: pt sts he had hemorrhoidectomy and fistula repair on [facility] 06/05/19 with a vessel loop inserted into his rectum which was to fall out on it's own - which it has not, causing pain rectal pain, pt also c/o loose stools due to taking laxatives. Vital Signs: 07/10 23:07 BP 148 / 105; Pulse 105; Resp 16; Temp 98.3; Pulse Ox 97% ; cmm Weight 115.67 kg; Height 6 ft. 5 in. (195.58 cm); Pain 10/10; 07/11 00:52 Pain 9/10; [facility] 01:36 BP 137 / 89; Pulse 88; Resp 18; Pulse Ox 98% on R/A; Pain [facility] 0/10; 07/10 23:07 Body Mass Index 30.24 (115.67 kg, 195.58 cm) cmm ED Course: 07/10 22:56 Patient arrived in ED. tb1 23:00 Monik Zarco MD is Private Physician. [facility] 23:05 Triage completed. [facility] 23:10 Arm band placed on right wrist. [facility] 23:32 Daniel Macedo, RN is Primary Nurse. [facility] 23:43 Imtiaz Riley PA is PHCP. w 23:43 Johnny Patterson DO is Attending Physician. w 07/11 01:20 Dr. Franz removed vessel loop from pt's rectum without [facility] difficulty, pt tolerated procedure well. 01:33 Monik Zarco MD is Referral Physician. w 01:35 Radiology: None performed. [facility] 01:36 No diagnostic tests ordered. [facility] 01:38 Patient has correct armband on for positive identification. [facility] Bed in low position. Call light in reach. Administered Medications: 00:14 Drug: HYDROmorphone 1 mg [hydromorphone 1 mg/mL injection [facility] syringe (1 mL)] Route: IM; Site: right deltoid; 00:52 Follow up: Pain 9/10 Adult; Response: Pain is decreased [facility] Outcome: 01:34 Discharge ordered by . [facility] 01:37 Patient verbalized understanding of disposition [facility] instructions. Patient has no functional deficits. 01:37 Patient discharged to home ambulatory. 01:37 Condition: improved 01:37 Discharge instructions given to patient, No prescriptions given. 01:37 Vitals are Complete in accordance with Emergency Department Policy. 01:38 Patient left the ED. [facility] Signatures: Anca Avelar RN RN Alesha Levin tb1 Imtiaz Riley PA PA wCharis Martínez RN RN skb Hogan, Robert, RN RN [facility] Corrections: (The following items were deleted from the chart) 07/10 23:16 23:10 PSHx: knee, left; Anal fissure repair 06/05/19; cmm cmm 23:16 23:10 PSHx: Fistula 2018; 3 times; cmm cmm 07/11 01:50 01:36 Dr. Zarco removed vessel loop from pt's rectum, pt rjh reports instant relief from pain. rjh Name Value Range Interpretation Code Description Data Kat rce(s) Supporting Document(s) ID Date Data Source [id number] 07/16/2019 05:34:00 AM [facility] 3 hour post Lactic if elevated? Y Name Value Range Interpretation Code Description Data Kat rce(s) Supporting Document(s) Blood Culture-Venous [facility] ID Date Data Source [id number] 07/16/2019 05:34:00 AM [facility] 3 hour post Lactic if elevated? Y Name Value Range Interpretation Code Description Data Kat rce(s) Supporting Document(s) Blood Culture-Venous [facility] ID Date Data Source [id number] 07/11/2019 01:22:00 AM [facility] 3 hour post Lactic if elevated? Y Name Value Range Interpretation Code Description Data Kat rce(s) Supporting Document(s) Lactic Acid 0.4-2.0 Normal (applies to non-numeric resu lts) [facility] ID Date Data Source [id number] 07/11/2019 01:19:00 AM [facility] 3 hour post Lactic if elevated? Y Name Value Range Interpretation Code Description Data Kat rce(s) Supporting Document(s) Sodium 140 mmol/L 137-145 Normal (applies to non-numeric resul ts) [facility] Potassium 3.5-5.1 Normal (applies to non-numeric resul ts) [facility] Chloride 108 mmol/L 98-112 Normal (applies to non-numeric resul ts) [facility] Carbon Dioxide CO2 22.0-33.0 Normal (applies to non-numer ic results) [facility] Anion Gap 4.0-11.0 Normal (applies to non-numeric resul ts) [facility] BUN 12 mg/dL 9-20 Normal (applies to non-numeric resul ts) [facility] Creatinine 0.80-1.50 Normal (applies to non-numeric resul ts) [facility] GFR >60 Normal (applies to non-numeric results) [facility] Result based on MDRD formula. Glucose Level 105 mg/dL 74-99 Above high normal [facility] The reference range is only applicable w hen fasting. Calcium-Uncorrected 8.4-10.2 Normal (applies to non-nume carmina results) [facility] Corrected Calcium 8.4-10.2 Normal (applies to non-numeri c results) [facility] ID Date Data Source [id number] 07/11/2019 01:06:00 AM EST [facility] Name Value Range Interpretation Code Description Data Kat rce(s) Supporting Document(s) White Blood Count 4.8-10.8 Normal (applies to non-numeri c results) [facility] Red Blood Count 4.35-6.08 Normal (applies to non-numeric results) [facility] Hemoglobin 13.0-17.5 Normal (applies to non-numeric resul ts) [facility] Hematocrit 37.7-51.0 Normal (applies to non-numeric resul ts) [facility] Mean Corpuscular Volume 80-94 Normal (applies to non- numeric results) [facility] Mean Corpuscular Hemoglobin 27.0-33.0 Normal (appli es to non-numeric results) [facility] Mean Corpuscular HGB Conc 32.0-36.0 Normal (applies to no n-numeric results) [facility] Red Cell Distribution Width 11.5-14.5 Normal (appli es to non-numeric results) [facility] Platelet Count 275 X10 3/uL 130-450 Normal (applies to non-numeric results) [facility] Mean Platelet Volume 9.6-13.1 Below low normal [facility] Imm Grans% (AUTO) 0.0-2.0 Normal (applies to non-numeri c results) [facility] Neutrophils % (AUTO) 43.0-75.0 Normal (applies to non-num bigg results) [facility] Lymphocytes % (AUTO) 20.5-45.5 Normal (applies to non-num bigg results) [facility] Monocytes % (AUTO) 5.5-11.7 Normal (applies to non-numer ic results) [facility] Eosinophils % (AUTO) 0.7-4.6 Normal (applies to non-num bigg results) [facility] Basophils % (AUTO) 0.2-1.2 Normal (applies to non-numer ic results) [facility] Imm Grans# (AUTO) 0.00-0.50 Normal (applies to non-numeri c results) [facility] Neutrophils # (AUTO) 1.90-7.00 Normal (applies to non-num bigg results) [facility] Lymphocytes # (AUTO) 1.30-3.10 Normal (applies to non-num bigg results) [facility] Monocytes # (AUTO) 0.40-0.70 Above high normal Can [facility] Eosinophils# (AUTO) 0.00-0.30 Above high normal [facility] Basophils # (AUTO) 0.00-0.10 Normal (applies to non-numer ic results) [facility] ID Date Data Source [id number] 07/01/2019 01:20:00 PM EST [facility] Name Value Range Interpretation Code Description Data Kat rce(s) Supporting Document(s) Hepatitis B Core Tot Ab,S res Negative No rmal (applies to non-numeric results) [facility] Test Performed by: [place] [address] [employer] Operator: Chetna Ziegler M.D. Ph.D.; CLIA# [id number] ID Date Data Source [id number] 06/27/2019 05:04:00 PM EST [facility] Name Value Range Interpretation Code Description Data Kat rce(s) Supporting Document(s) Hep C Ab-T Test Nonreactive Normal (applies to non-numeric results) [facility] ID Date Data Source [id number] 06/27/2019 05:04:00 PM EST [facility] Name Value Range Interpretation Code Description Data Kat rce(s) Supporting Document(s) HIV 1/2 Ab p24 Ag Screen Nonreactive Normal (applies to non-numeric results) [facility] ID Date Data Source [id number] 06/27/2019 05:04:00 PM EST [facility] Name Value Range Interpretation Code Description Data Kat rce(s) Supporting Document(s) Syphilis Serology Nonreactive Normal (applies to non-numer ic results) [facility] Procedure Vital Signs ID Date Data Source UNK Name Value Range Interpretation Code Description Data Source(s) Body surface area 2.52 m2 2.52 m2 [facility] ([facility]) Body mass index (BMI) [Ratio] 31.4 kg/m2 31.4 k g/m2 [facility] ([facility]) Body height 77 [in_i] 77 [in_i] [facility] ([facility]) 6'5" pt states Body weight 120.204 kg 120.204 kg [facility] ([facility]) every morning Body weight 265.00 [lb_av] 265.00 [lb_av] [facility] ([facility]) pt states, didnt want to be weighed, sta evans he do Oxygen saturation in Arterial blood by Pulse oximetry 97 % 97 % [facility] ([facility]) Respiratory rate 18 /min 18 /min [facility] ( [facility]) Body temperature 97.1 [degF] 97.1 [degF] [facility] ([facility]) Heart rate 98 /min 98 /min [facility] ([facility]) Diastolic blood pressure 88 mm[Hg] 88 mm[Hg] [facility] ([facility]) Systolic blood pressure 144 mm[Hg] 144 mm[Hg] [facility] ([facility])
[2020-08-19] MEDS ORDERED: ACET-683 PO (19:07)
[2020-08-19] MEDS ORDERED: dexameTHASONE 20MG/5ML VIAL (J1100 PER 1MG) IV ONE (19:30)
--- OUTSIDE RECORDS SUMMARY | 2020-08-19 20:04 | CCD ---
Author Author [facility] Organization [facility] Address Unknown Phone Unavailable Care Team Providers Care Ophthalmic Pathologist Name Role Phone Joaquin ROBLES MD Unavailable [...] Joaquin ROBLES MD Unavailable Unavailable Josefina Pimentel Unavailable Unavailable Myrna Zarco MD Unavailable Unavailable [...] Unavailable SILVANO, ABDIRAHMAN PA Unavailable Unavailable SILVANO, ABDRIAHMAN PA Unavailable Unavailable SILVANO, ABDIRAHMAN PA Unavailable Unavailable SILVANO, ABDIRAHMAN PA Unavailable Unavailable SILVANO, ABDIRAHMAN PA Unavailable Unavailable SILVANO, ABDIRAHMAN PA Unavailable Unavailable [place], Johnny DO Unavailable Unavailable [place], Johnny DO Unavailable Unavailable Leonardo, Johnny DO Unavailable Unavailable Leonardo, Johnny DO Unavailable Unavailable [place], Johnny DO Unavailable Unavailable Varsha Auguste MD Unavailable Unavailable Chance Patrick DO Unavailable Unavailable NOSTROM, CHETNA BELL HOLE DIGGER Unavailable Unavailable NOSTROM, CHETNA BELL HOLE DIGGER Unavailable Unavailable NOSTROM, CHETNA BELL HOLE DIGGER Unavailable Unavailable NOSTROM, CHETNA BELL HOLE DIGGER Unavailable Unavailable NOSTROM, CHETNA BELL HOLE DIGGER Unavailable Unavailable NOSTROM, CHETNA BELL HOLE DIGGER Unavailable Unavailable NOSTROM, CHETNA BELL HOLE DIGGER Unavailable Unavailable NOSTROM, CHETNA BELL HOLE DIGGER Unavailable Unavailable NOSTROM, CHETNA BELL HOLE DIGGER Unavailable Unavailable NOSTROM, CHETNA BELL HOLE DIGGER Unavailable Unavailable NOSTROM, CHETNA BELL HOLE DIGGER Unavailable Unavailable NOSTROM, CHETNA BELL HOLE DIGGER Unavailable Unavailable NOSTROM, CHETNA BELL HOLE DIGGER Unavailable Unavailable YOUNG, A GEENA ZINC SKIMMER Unavailable Unavailable YOUNG, A GEENA ZINC SKIMMER Unavailable Unavailable YOUNG, A GEENA ZINC SKIMMER Unavailable Unavailable YOUNG, A GEENA ZINC SKIMMER Unavailable Unavailable YOUNG, A GEENA ZINC SKIMMER Unavailable Unavailable Yves Arevalo ZINC SKIMMER Unavailable Unavailable Fabricio CHAVEZ MD Unavailable Unavailable [...] Fabricio CHAVEZ MD Unavailable Unavailable Fabricio CHAVEZ VIJAY MD Unavailable Unavailable KATHY, F VIJAY JAMES Unavailable Unavailable KATHY, F VIJAY JAMES Unavailable Unavailable KATHY, F VIJAY JAMES Unavailable Unavailable KATHY, F VIJAY MD Unavailable Unavailable LORENC, ALEX MD Unavailable Unavailable LORENC, ALEX MD Unavailable Unavailable LORENC, ALEX MD Unavailable Unavailable LORENC, ALEX MD Unavailable Unavailable LORENC, ALEX MD Unavailable Unavailable LORENC, ALEX MD Unavailable Unavailable LORENC, ALEX MD Unavailable Unavailable Gerardo A Jace JAMES Unavailable Unavailable Gerardo, A Jace JAMES Unavailable Unavailable Gerardo, A Jace MD Unavailable Unavailable MILADIS, IMTIAZ PA Unavailable [...] Unavailable Unavailable MILADIS, IMTIAZ PA Unavailable Unavailable Noseric R Chetna HUTSON Unavailable Unavailable NO, PCP Unavailable Unavailable Re-disclosure [...] is protected by Article 27-F of the [place] Public Health law. If you continue you may have access to information: Regarding HIV / AIDS; Provided by facilities licensed or operated by the [place] Office of Mental Health; or Provided by the [place] Office for People With Developmental Disabilities. If such information is present, then the following [place] mandated warning applies: This information has been [...] law may result in a fine or chcf sentence or both. A general authorization for the release of medical or other information is NOT sufficient authorization for further disc losure. Allergies and Adverse Reactions Type Description Substance Reaction Status Data Source(s ) No Known Drug Allergies No Known Drug Allergies [facility] No Known Environmental Allergies No Known Environmental Al lergies [facility] No Known Food Allergies No Known Food Allergies [facility] Family History Family Member Name Family Member Gender Family Member Status Date o f Status Description Data Source(s) Unknown Male Problem MEDENT ([facility]) Encounters Encounter Providers Location Date Indications Data Source(s ) Outpatient Attender: VIJAY [facility]AVEZ [facility]/2019 08:14:00 PM EDT - 04/08/2020 08:15:00 PM EDT Z11.59 [facility] Z11.59 Patient discharged. Outpatient Attender: GEENA GRAY [facility] 01:31:00 PM EDT - 03/31/2020 01:32:00 PM EDT Z11.59 [facility] Z11.59 Patient discharged. Emergency Attender: Chetna Ortiz RN PAttender: CHETNA ORTIZ NPAttender: ALEX MARISCAL [facility] 11/29/2019 03:35:00 AM EDT - 11/29/2019 04:12:00 AM EDT COUGH [facility] COUGH Patient discharged. Outpatient Attender: Abdirahman Pimentel PAAttender: ELIZABETH GONZALEZ [facility] 11/09/2019 02:44:00 PM EDT - 11/09/2019 02:45:00 PM EDT R05 [facility] R05 Patient discharged. Outpatient Attender: CARRIE ROBLES MDConsultant: PCP NO 09/11/2019 02:35:00 PM EST - 09/11/2019 02:35:00 PM EST [facility] Emergency Attender: Larisa Auguste MDAttender: Jace gifford MD [facility]PSCAORT-ED 08/07/2019 07:36:00 PM EST - 08/08/2019 02:10:00 AM EST ABDOMINAL PAIN, RECTAL BLEEDING [facility] ABDOMINAL PAIN, RECTAL BLEEDING Patient discharged. Emergency Attender: Chance Patrick DOAttender: Chance trinidad DO [facility] 07/21/2019 10:58:00 PM EST - 07/22/2019 12:16:00 AM EST POST SURGICAL PAIN [facility] POST SURGICAL PAIN Patient discharged. Emergency Attender: Johnny Patterson DOAttender: IMTIAZ RILEY CARLOS [facility] 07/10/2019 10:55:00 PM EST - 07/11/2019 01:44:00 AM EST RECTAL FOREIGN BODY [facility] RECTAL FOREIGN BODY Patient discharged. Outpatient Attender: Monik Zarco MD [facility] 06/27 10:32:00 AM EST - 06/27/2019 10:33:00 AM EST A63.0 [facility] A63.0 Patient discharged. Emergency Attender: Korin Arevalo FNPAtte nder: Jace Carrillo MDReferrer: Monik Zarco MD [facility] 06/16/2019 09:55:00 AM EST - 06/16/2019 01:02:00 PM EST WEAKNESS/HOT-COLD CHILLS/ANAL FISTUAL REPAIR 06/03 [facility] WEAKNESS/HOT-COLD CHILLS/ANAL FISTUAL RE PAIR 06/03 Patient discharged. Insurance Providers Payer name Policy type / Coverage type Policy ID Covered libertarian ID Covered libertarian's relationship to wallis Policy Wallis Plan Information [employer] [id number] SP [id number] SELF PAY ONLY [id number] SP [id number] [facility] [id number] Other [id number] [facility]ATED [facility] [id number] Other [id number] [facility] [place] [place] [id number] 18 [id number] [facility] [employer]/P [place] [id number] 18 [id number] ACTIVE DUTY [id number] SP [id number] [facility] [employer] [id number] Self [id number] SELF PAY UNAVAILABLE UNAVAILA BLE Problems, Conditions, and Diagnoses Code Display Name Description Problem Type Effective Dates Data Source(s) Z20.828 Contact with and (suspected) exposure to other viral communicable diseases CONTACT W AND EXPOSURE TO OTH VIRAL COMMUNICABLE DISEASES Di agnosis 03/31/2020 01:31:00 PM EDT [facility] K605 Anorectal fistula Anorectal fistula Diagnosis 09/11/2019 02:35:00 PM [facility] F17.290 Nicotine dependence, other tobacco produ ct, uncomplicated NICOTINE DEPENDENCE, OTHER TOBACCO PRODUCT, UNCOMPLICATED Diagnosis 08/07 07:36:00 PM [facility] Z09 Encounter for follow-up exam ination after completed treatment for conditions other than malignant neoplasm ENCNTR FOR F/U EXAM AFT TRTMT FOR COND O TH THAN MALIG NEOPLM Diagnosis 08/07/2019 07:36:00 PM [facility] K62.89 Other specified diseases of anus and rec xochitl OTHER SPECIFIED DISEASES OF ANUS AND RECTUM Diagnosis 08/07/2019 07:36:00 PM [facility] Surgeries/Procedures Procedure Description Date Indications Data Source(s) [id number] 11/29/2019 12:00:00 AM EDT [facility] EMERGENCY DEPARTMENT VISIT MODERATE SEVERITY EMERGENCY DEPT VISIT [facility]CONTRAST MATERIAL CT ABD & PELV W/CONTR AST 08/07/2019 12:00:00 AM [facility] Low osmolar contrast material, 300-399 mg/ml iodine concentr ation, per ml 08/07/2019 12:00:00 AM [facility] CULTURE BACTERIAL BLOOD AEROBIC W/ID ISOLATES BLOOD CULTURE FOR BACTERIA 08/07/2019 12:00:00 AM [facility] BLOOD COUNT COMPLETE AUTO&AUTO DIFRNTL WBC COUNT COMPLETE CB C W/AUTO DIFF WBC 08/07/2019 12:00:00 AM [facility] LACTATE ASSAY OF LACTIC ACID 08/07/2019 12:00:00 AM [facility] C-REACTIVE PROTEIN C-REACTIVE PROTEIN 08/07/2019 12:00:00 AM [facility] COMPREHENSIVE METABOLIC PANEL COMPREHEN METABOLIC PANEL 09/2019 12:00:00 AM [facility] COLLECTION VENOUS BLOOD VENIPUNCTURE ROUTINE VENIPUNCTURE 12:00:00 AM [facility] EMERGENCY DEPARTMENT VISIT HIGH/URGENT SEVERITY EMERGENCY DE PT VISIT 08/07/2019 12:00:00 AM [facility] EMERGENCY DEPARTMENT VISIT LIMITED/MINOR PROB EMERGENCY DEPT VISIT 07/21/2019 12:00:00 AM [facility] Results ID Date Data Source [id number] 04/11/2020 10:53:00 AM EDT [facility] COVID-19 Patient Ethnicity Not or LatinoCOVID-19 Patient Race WhiteCOVID-19 Specimen Source Nasopharyngeal Name Value Range Interpretation Code Description Data Kat rce(s) Supporting Document(s) SARS-CoV-2 RNA Undetected Normal (applies to non-numeric r esults) [facility] SARS-CoV-2 RNA absent. This result does not rule out COVID-19 in the patient, as the sensitivity of the test depends on the timing of the specimen collection and the quality of the specimen. Result should be correlated with patient's history and clinical presentation. Patient Race Normal (applies to non-numeric res ults) [facility] Patient Ethnicity Normal (applies to non-numeri c results) [facility] Method Summary Normal (applies to non-numeric r esults) [facility] BELLA- This test uses the bella SARS-CoV -2 assay ([employer] and is performed on the bella 6800 System. It has received Emergency Use Authorization (EUA) by the U.S. Food and Drug Administration. Performance characteristics were verified by [facility] in a manner consistent with CLIA requirements. Fact sheets for this Emergency Use Authorization (EUA) can be found at the following links: https://www.fda.gov/media/321891/download for Healthcare Providers https://www.fda.gov/media/141455/download for Patients Test Performed by: [address] [address] Carpet Installer: Chetna Ziegler M.D. Ph.D.; CLIA# [id number] ID Date Data Source [id number] 04/08/2020 02:50:00 PM EDT [facility] Name Value Range Interpretation Code Description Data Kat rce(s) Supporting Document(s) SARS-CoV-2 RNA Resp Ql CONCEPCION+probe [facility] This lab was [facility] by [facility] and reported by [facility]. ID Date Data Source [id number] 03/31/2020 01:31:00 PM EDT [facility] Name Value Range Interpretation Code Description Data Kat rce(s) Supporting Document(s) SARS coronavirus 2 RNA [facility] This lab was ordered by [facility] and reported by [facility]. ID Date Data Source [id number] 04/03/2020 08:23:00 AM EDT [facility] Name Value Range Interpretation Code Description Data Kat rce(s) Supporting Document(s) SARS-CoV-2 CONCEPCION result Not Detected Normal (applies to non- numeric results) [facility] This test was developed and its performa nce characteristics determined by [facility]. This test has not been FDA [...] detected) result in this assay. Performed at: [facility] [id number] Carpet Installer: Jessica Lucio MD, Phone: [phone] ID Date Data Source [id number] 11/29/2019 03:35:00 AM EDT [facility] Name: ROHIT HOWARD [facility] Rec #: [id number] : 1985 Age/Sex: 34M Date of Service: 11/29/19 PHYSICIAN CHART Physician Documentation [facility] Name: Rohit Howard Age: 34 yrs Sex: Male : 1985 Arrival Date: 11/29/2019 Time: 03:35 Bed ED-4 Private MD: Nacho Ellington ED Physician Alex [...] he/she has never smoked tobacco. Preferred Language: Wallisian. ROS: 04:03 Constitutional: Negative for fever. Respiratory: [...] rce(s) Supporting Document(s) ID Date Data Source [id number] 11/29/2019 03:35:00 AM EDT [facility] Name: ROHIT HOWARD [facility] Rec #: [id number] : 1985 Age/Sex: 34M Date of Service: 11/29/19 NURSE CHART Nurse's Notes [facility] Name: Rohit Howard Age: 34 yrs Sex: Male : 1985 Arrival Date: 11/29/2019 Time: 03:35 Bed ED-4 Private MD: Nacho Ellington Diagnosis: Cough Presentation: 11/28 03:51 Transition of care: p atient was not received from another [facility] setting of care. Presenting complaint: Patient states [...] Yes, COVID-19:. 03:51 Method Of Arrival: Walk-In [facility] 03:51 Acuity: Semi-Urgent - 4 [facility] Triage Assessment: 03:52 SEPSIS SCREEN: A Confirmed or Suspected Infection is [facility] Unknown. Suicide Screening: Have you had thoughts [...] he/she has never smoked tobacco. Preferred Language: Wallisian. Screenin:55 AUDIT 1. How often do you [...] has correct armband on for positive identification. jlj Bed in low position. 04:12 No procedures ordered. jlj Administered Medications: No medications were administered Outcome: 04:04 Discharge ordered by . wn 04:11 Patient verbalized understanding of disposition [facility] instructions. Patient has no functional deficits. Patient [...] mp3 Signatures: Chetna Ortiz RNP RNP wn [place], Kevin, RN RN kl1 Luz Chew MacKenzie, RN RN mp3 Charis West, RN RN Cece Rollins, RN RN jlj Name Value Range Interpretation Code Description Data Kat rce(s) Supporting Document(s) ID Date Data Source [id number] 11/29/2019 03:35:00 AM EDT [facility] Name: ROHIT HOWARD [facility] Rec #: [id number] : 1985 Age/Sex: 34M Date of Service: 11/29/19 DISPOSITION SUMMARY Discharge Summary [facility] Name:Rohit Howard Emergency Department Age:34 yrs [...] rce(s) Supporting Document(s) ID Date Data Source [id number] 12/01/2019 12:41:00 PM EDT [facility] COVID-19 Specimen Source NASOPHARYNGEAL Is Patient admitted or to be admitted? Y Name Value Range Interpretation Code Description Data Kat rce(s) Supporting Document(s) SARS-CoV-2 RNA Negative Normal (applies to non-numeric r esults) [facility] Performing Lab Normal (applies to non-numeric r esults) [facility] Is Patient Admitted or Awaiting Admissio n?:Y COVID-19 Specimen Source: BELL HOLE DIGGER NOTE: RESULTS HAVE BEEN REFORMATTED PLEASE REVIEW RESULTS CAREFULLY THE LOCATION OF INFORMATION MAY HAVE CHANGED Test performed [place] [address] ID Date Data Source [id number] 11/29/2019 12:00:00 AM EDT [facility] Name Value Range Interpretation Code Description Data Kat rce(s) Supporting Document(s) SARS coronavirus 2 RNA:PrThr:Pt:XXX:Ord:Probe.amp.tar [facility] This lab was ordered by [facility] Marta BACK and reported by [facility]. ID Date Data Source [id number] 11/12/2019 05:09:00 PM EDT [facility] COVID-19 Specimen Source NASOPHARYNGEAL Name Value Range Interpretation Code Description Data Kat rce(s) Supporting Document(s) SARS-CoV-2 RNA Undetected Normal (applies to non-numeric r esults) [facility] SARS-CoV-2 RNA is not detected. ------- ADDITIONAL INFORMATION Testing was performed using the bella SARS-CoV-2 assay ([employer] on the bella 6800 System. Fact sheets for this Emergency Use Authorization (EUA) assay can be found at the following links: For Healthcare Providers: https://www.fda.gov/media/240893/download For Patients: https://www.fda.gov/media/108900/download Test Performed by: [facility] [address] [place] [address] Carpet Installer: Chetna Ziegler M.D. Ph.D.; CLIA# [id number] ID Date Data Source [id number] 11/09/2019 06:45:00 PM EDT [facility] REFLEX TO COVID-19 IF NEGATIVE This Res piratory Panel DOES NOT test for the Novel Coronovirus (2019-nCoV) from [facility]. If patient is suspected of having the Novel 2018 Coronovirus notify the Health Department IMMEDIATELY. Not detectedNot detectedNot detectedNot detectedNot detectedNot detectedNot detectedNot detectedNot detectedNot detectedNot detectedNot detectedNot detectedNot detected Methodology: Multiplexed PCR Reference Range: Not detectedNot detectedNot detectedNot detectedNot detected Name Value Range Interpretation Code Description Data Kat rce(s) Supporting Document(s) ID Date Data Source [id number] 11/09/2019 01:33:00 PM EDT [facility] Name Value Range Interpretation Code Description Data Kat rce(s) Supporting Document(s) SARS-CoV-2 RNA Resp Ql CONCEPCION+probe [facility] This lab was ordered by Lyudmila back and reported by [facility]. ID Date Data Source [id number] 08/07/2019 07:36:00 PM EST [facility] Name: ROHIT HOWARD [facility] Rec #: [id number] : 1985 Age/Sex: 34M Date of Service: 08/07/19 DISPOSITION SUMMARY Discharge Summary [facility] Name:Rohti Howard Emergency Department Age:34 yrs Sex:Male :1985 [...] rce(s) Supporting Document(s) ID Date Data Source [id number] 08/07/2019 07:36:00 PM EST [facility] Name: ROHIT HOWARD [facility] Rec #: [id number] : 1985 Age/Sex: 34M Date of Service: 08/07/19 PHYSICIAN CHART Physician Documentation [facility] Name: Rohit Howard Age: 34 yrs [...] IV contrast, but until he went to [place] approximately 12 days ago and had a CT scan done with IV and o ral contrast, they were all negative. This most recent time in [place], the CT scan showed an infection in [...] admits to using chewing tobacco, Preferred Language: Wallisian. - The history of the events were [...] exam: the spouse/significant other acts as a technical consultant, incision well-healed, no drainage, no erythema. ROSALVA [...] incomplete healing, and then a visit to [place] which showed a infection in the sigmoid [...] RN RN edv Larisa Auguste MD MD jtv Mary Ross RN RN jv2 Corrections: (The following items [...] Fistula 2018; May 2019 and 2 in 2018; edv edv 20:35 19:59 PSHx: Hemmorrhoid; edv [...] rce(s) Supporting Document(s) ID Date Data Source [id number] 08/07/2019 07:36:00 PM EST [facility] Name: ROHIT HOWARD [facility] Rec #: [id number] : 1985 Age/Sex: 34M Date of Service: 08/07/19 NURSE CHART Nurse's Notes [facility] Name: Rohit Howard Age: 34 yrs [...] admits to using chewing tobacco, Preferred Language: Wallisian. - The history of the events were [...] on for positive identification. 20:08 Brenda Candelario, MUNDO is Primary Nurse. alc 20:33 Nacho Ellington [...] jv2 set of blood cultures drawn by mi. Inserted saline lock: 18 gauge in right [...] call back attempted, no answer js Signatures: Tmomy Salgado, RN Syeda Maciel RN RN js Vieth, Julie, MD MD jtv Crump, Alayna, Mary Frank RN, alc, RN MUNDO jv2 Chetna Rosa, Reg Reg guille Corrections: [...] Name Value Range Interpretation Code Description Data [facility] Supporting Document(s) ID Date Data Source [id number] 08/08/2019 12:32:00 AM EST [facility] Name Value Range Interpretation Code Description Data [facility] rce(s) Supporting Document(s) Sodium 139 mmol/L 137-145 Normal (applies to non-numeric resul ts) [facility] Potassium 3.5-5.1 Normal (applies to non-numeric resul ts) [facility] Chloride 106 mmol/L 98-112 Normal (applies to non-numeric resul ts) [facility] Carbon Dioxide CO2 22.0-33.0 Normal (applies to non-numer ic results) [facility] Anion Gap 4.0-11.0 Normal (applies to non-numeric resul ts) [facility] BUN 9 mg/dL 9-20 Normal (applies to non-numeric resul ts) [facility] Creatinine 0.80-1.50 Normal (applies to non-numeric resul ts) [facility] GFR >60 Normal (applies to non-numeric results) [facility] Result based on MDRD formula. Glucose Level 94 mg/dL 74-99 Normal (applies to non-numeric re sults) [facility] The reference range is only applicable w hen fasting. Calcium-Uncorrected 8.4-10.2 Normal (applies to non-nume carmina results) [facility] Corrected Calcium 8.4-10.2 Normal (applies to non-numeri c results) [facility] Bilirubin,Total 0.2-1.3 Normal (applies to non-numeric results) [facility] SGOT(AST) 133 U/L 17-59 Above high normal [facility] SGPT(ALT) 197 U/L 21-72 Above high normal [facility] Alkaline Phosphatase 62 U/L 38-126 Normal (applies to non-num bigg results) [facility] can increase Alkaline Phosp le vels up to 2 times the normal adult value. Normal values for children and adolescents are 2 to 3 times the normal adult value. Total Protein 6.3-8.2 Normal (applies to non-numeric re sults) [facility] Albumin 3.5-5.0 Normal (applies to non-numeric resul ts) [facility] ID Date Data Source [id number] 08/08/2019 12:32:00 AM [facility] Name Value Range Interpretation Code Description Data Kat rce(s) Supporting Document(s) C-Reactive Protein,Wide Range <3.00 Normal (applies t o non-numeric results) [facility] ID Date Data Source [id number] 08/12/2019 11:19:00 PM [facility] 3 hour post Lactic if elevated? Y Name Value Range Interpretation Code Description Data Kat rce(s) Supporting Document(s) Blood Culture-Venous [facility] ID Date Data Source [id number] 08/12/2019 11:19:00 PM [facility] 3 hour post Lactic if elevated? Y Name Value Range Interpretation Code Description Data Kat rce(s) Supporting Document(s) Blood Culture-Venous [facility] ID Date Data Source [id number] 08/07/2019 11:48:00 PM [facility] 3 hour post Lactic if elevated? Y Name Value Range Interpretation Code Description Data Kat rce(s) Supporting Document(s) Lactic Acid 0.4-2.0 Normal (applies to non-numeric resu lts) [facility] ID Date Data Source [id number] 08/07/2019 11:24:00 PM [facility] Name Value Range Interpretation Code Description Data Kat rce(s) Supporting Document(s) White Blood Count 4.8-10.8 Normal (applies to non-numeri c results) [facility] Red Blood Count 4.35-6.08 Normal (applies to non-numeric results) [facility] Hemoglobin 13.0-17.5 Normal (applies to non-numeric resul ts) [facility] Hematocrit 37.7-51.0 Normal (applies to non-numeric resul ts) [facility] Mean Corpuscular Volume 80-94 Normal (applies to non- numeric results) [facility] Mean Corpuscular Hemoglobin 27.0-33.0 Normal (appli es to non-numeric results) [facility] [facility] Mean Corpuscular HGB Conc 32.0-36.0 Normal (applies to no n-numeric results) [facility] Red Cell Distribution Width 11.5-14.5 Normal (appli es to non-numeric results) [facility] Platelet Count 267 X10 3/uL 130-450 Normal (applies to non-numeric results) [facility] Mean Platelet Volume 9.6-13.1 Below low normal [facility] Imm Grans% (AUTO) 0.0-2.0 Normal (applies to non-numeri c results) [facility] Neutrophils % (AUTO) 43.0-75.0 Normal (applies to non-num bigg results) [facility] Lymphocytes % (AUTO) 20.5-45.5 Normal (applies to non-num bigg results) [facility] Monocytes % (AUTO) 5.5-11.7 Normal (applies to non-numer ic results) [facility] Eosinophils % (AUTO) 0.7-4.6 Normal (applies to non-num bgig results) [facility] Basophils % (AUTO) 0.2-1.2 Normal (applies to non-numer ic results) [facility] Imm Grans# (AUTO) 0.00-0.50 Normal (applies to non-numeri c results) [facility] Neutrophils # (AUTO) 1.90-7.00 Normal (applies to non-num bigg results) [facility] Lymphocytes # (AUTO) 1.30-3.10 Normal (applies to non-num bigg results) [facility] Monocytes # (AUTO) 0.40-0.70 Normal (applies to non-numer ic results) [facility] Eosinophils# (AUTO) 0.00-0.30 Above high normal [facility] Basophils # (AUTO) 0.00-0.10 Normal (applies to non-numer ic results) [facility] ID Date Data Source [id number] 08/08/2019 12:43:00 AM EST [facility] Name: ROHIT HOWARD : 1985 Age/Sex: 34M Ordering Provider: Larisa Auguste MD Med Rec #: [id number] Reg Status: REG ER Room #: Date of Service: 08/07/19 Report Number: [id number] cc:Larisa Auguste MD; PCP None Send Report [...] 08/08/1942 Dictation Date/Time: 08/08/1942 Transcribed Date/Time: 08/08/1942 Telecommunications Project Manager: Name Value Range Interpretation Code Description Data Kat rce(s) Supporting Document(s) ID Date Data Source [id number] 07/21/2019 10:58:00 PM [facility] Hospital Name: ROHIT HOWARD [facility] Rec #: [id number] : 1985 Age/Sex: 34M Date of Service: 07/21/19 DISPOSITION SUMMARY Discharge Summary [facility] Name:Rohit Howard Emergency Department Age:34 yrs [...] rce(s) Supporting Document(s) ID Date Data Source [id number] 07/21/2019 10:58:00 PM [facility] Hospital Name: ROHIT HOWARD [facility] Rec #: [id number] : 1985 Age/Sex: 34M Date of Service: 07/21/19 PHYSICIAN CHART Physician Documentation [facility] Name: Rohit Howard Age: 34 yrs [...] he found out the Dr. Zarco is erosion control coordinator. ROS: 00:26 Constitutional: See HPI. All other [...] rce(s) Supporting Document(s) ID Date Data Source [id number] 07/21/2019 10:58:00 PM [facility] Name: ROHIT HOWARD [facility] Rec #: [id number] : 1985 Age/Sex: 34M Date of Service: 07/21/19 NURSE CHART Nurse's Notes [facility] Name: Rohit Howard Age: 34 yrs Sex: Male : 1985 Arrival Date: 07/21/2019 Time: 22:58 Bed Waiting Private MD: Nacho Ellington Diagnosis: Presentation: 07/21 23:02 Transition of care: patient was not received from another [facility] setting of care. Presenting complaint: Patient states - surgery 6 weeks ago-fistula patient has had pain/bleeding since (patient states was [place] MD Zarco performed surgery. Patient denies any travel outside the [place] in the last 30 days. 23:02 Method Of Arrival: Walk-In [facility] 23:02 Acuity: Urgent - 3 [facility] Triage Assessment: 23:07 SEPSIS SCREEN: A Confirmed [...] Mass Index 29.47 (115.67 kg, 198.12 cm) [facility] ED Course: 22:59 Patient arrived in ED. tb1 23:03 Triage completed. jc3 23:04 Nacho Ellington is Private Physician. 3 23:04 Arm band placed on right wrist. Patient placed in waiting [facility] room Patient has correct armband on for positive identification. 07/22 00:24 Chance Patrick DO is Attending Physician. ml8 Administered Medications: No medications were administered Outcome: 00:17 Patient left the ED. sf2 01:04 Patient left the ED. sf2 Signatures: Alesha West tb1 Kait Brady, RN RN jc3 Angie Zaman sf2 Chance Patrick DO DO ml8 Name Value Range Interpretation Code Description Data Kat rce(s) Supporting Document(s) ID Date Data Source [id number] 07/22/2019 12:41:00 AM EST [facility] Name Value Range Interpretation Code Description Data Kat rce(s) Supporting Document(s) White Blood Count 4.8-10.8 Normal (applies to non-numeri c results) [facility] Red Blood Count 4.35-6.08 Normal (applies to non-numeric results) [facility] Hemoglobin 13.0-17.5 Normal (applies to non-numeric resul ts) [facility] Hematocrit 37.7-51.0 Normal (applies to non-numeric resul ts) [facility] Mean Corpuscular Volume 80-94 Normal (applies to non- numeric results) [facility] Mean Corpuscular Hemoglobin 27.0-33.0 Normal (appli es to non-numeric results) [facility] Mean Corpuscular HGB Conc 32.0-36.0 Normal (applies to no n-numeric results) [facility] Red Cell Distribution Width 11.5-14.5 Normal (appli es to non-numeric results) [facility] Platelet Count 283 X10 3/uL 130-450 Normal (applies to non-numeric results) [facility] Mean Platelet Volume 9.6-13.1 Below low normal [facility] Imm Grans% (AUTO) 0.0-2.0 Normal (applies to non-numeri c results) [facility] Neutrophils % (AUTO) 43.0-75.0 Below low normal [facility] Lymphocytes % (AUTO) 20.5-45.5 Normal (applies to non-num bigg results) [facility] Monocytes % (AUTO) 5.5-11.7 Normal (applies to non-numer ic results) [facility] Eosinophils % (AUTO) 0.7-4.6 Normal (applies to non-num bigg results) [facility] Basophils % (AUTO) 0.2-1.2 Normal (applies to non-numer ic results) [facility] Imm Grans# (AUTO) 0.00-0.50 Normal (applies to non-numeri c results) [facility] Neutrophils # (AUTO) 1.90-7.00 Normal (applies to non-num bigg results) [facility] Lymphocytes # (AUTO) 1.30-3.10 Above high normal [facility] Monocytes # (AUTO) 0.40-0.70 Above high normal [facility] Eosinophils# (AUTO) 0.00-0.30 Above high normal [facility] Basophils # (AUTO) 0.00-0.10 Normal (applies to non-numer ic results) [facility] ID Date Data Source [id number] 07/10/2019 10:55:00 PM EST [facility] Name: ROHIT HOWARD [facility] Rec #: [id number] : 1985 Age/Sex: 34M Date of Service: 07/10/19 DISPOSITION SUMMARY Discharge Summary [facility] Name:Rohit Howard Emergency Department Age:34 yrs [...] rce(s) Supporting Document(s) ID Date Data Source [id number] 07/10/2019 10:55:00 PM [facility] Name: ROHIT HOWARD [facility] Rec #: [id number] : 1985 Age/Sex: 34M Date of Service: 07/10/19 PHYSICIAN CHART Physician Documentation [facility] Name: Rohit Howard Age: 34 yrs Sex: Male : 1985 Arrival Date: 07/10/2019 Time: 22:55 Bed 1 Private MD: Monik Zarco L ED Physician Johnny Patterson Disposition: 07/11 00:38 Attestation: I discussed the plan of care with [facility] Provider and agree with what they have documented. The patient requires specialty care. We will contact the appropriate dietitian consultant for definitive care. 01:33 Chart complete. [facility] HPI: 00:35 This 34 yrs old Male presents to ER via Walk-In wjj with complaints of Rectal Foreign Body. 00:35 [...] medical history. - Social History: Preferred Language: Wallisian Smoking status (Tobacco): Patient admits to using chewing tobacco. ROS: 00:37 Constitutional: Negative for fever, chills, and weight wjj loss. Abdomen/GI: See HPI. All other systems are negative. Exam: 00:38 Constitutional: This is a well developed, well nourished [facility] patient who is awake, alert, and in [...] 30.24 (115.67 kg, 195.58 cm) cmm MDM: 07/10 23:43 Patient medically screened. wj07/11 00:39 Data reviewed: vital signs, nurses notes. : Case presented to: Dr. Johnny Patterson. w 01:31 ED course: Patient's vessel loop was removed by Dr. Franz. wjj Patient tolerated the procedure well see procedure note for exact procedure.. 07/11 00:34 Order name: Cbc With Auto Differential; Complete Time: wjj 07/11 00:34 Order name: Lactic Acid; Complete Time: wjj 07/11 00:34 Order name: Blood Culture - Venous wjj 07/11 00:34 Order name: BMP; Complete Time: w Dispensed Medications: 00:14 Drug: HYDROmorphone 1 mg [hydromorphone 1 mg/mL injection skb syringe (1 mL)] Route: IM; Site: right deltoid; 00:52 Follow up: Pain 04/15 Adult; Response: Pain is decreased [facility] Disposition Summary: 07/11/19 01:34 Discharge Ordered Location: Home/Self Care wjj Condition: Good wjj Diagnosis - Wound Recheck wjj Followup: wjj - With: Monik Zarco MD - When: Next week - Reason: Recheck today's complaints, Continuance of care Discharge Instructions: - Discharge Summary Sheet wjj - Wound Care, Adult wjj Forms: - Medication Reconciliation w Signatures: Dispatcher [employer] EDAnca Griffiths, RN RN cmm Imtiaz Riley PA PA w Johnny Patterson DO DO rc3 Charis West RN RN skb Daniel Macedo RN RN [facility] Corrections: (The following items were deleted from the chart) 07/10 23:16 23:10 PSHx: knee, left; Anal fissure repair 06/05/19; cmm cmm 23:16 23:10 PSHx: Fistula 2018; 3 times; cmm cmm Name Value Range Interpretation Code Description Data Kat rce(s) Supporting Document(s) ID Date Data Source [id number] 07/10/2019 10:55:00 PM [facility] Name: ROHIT HOWARD [facility] Rec #: [id number] : 1985 Age/Sex: 34M Date of Service: 07/10/19 NURSE CHART Nurse's Notes [facility] Name: Rohit Howard Age: 34 yrs Sex: Male : 1985 Arrival Date: 07/10/2019 Time: 22:55 Bed 1 Private MD: Monik Zarco L Diagnosis: Wound Recheck Presentation: 07/10 23:03 Transition of care: p atient was not received from another [facility] setting of care. Presenting complaint: Patient states - Patient states had removed fistula and hemorrhoids 5 weeks ago. States strings are still there and patient state shaving much pain. Patient denies any travel outside the [place] in the last 30 days. Patient denies exposure to sick international traveler in last 30 days. 23:03 Method Of Arrival: Walk-In [facility] 23:03 Acuity: Semi-Urgent - 4 [facility] Triage Assessment: 23:05 The patient appears to be uncomfortable, The patient is [facility] cooperative. Patient states the pain is currently a 10 / 10 The patient complains of pain in rectal. The patient states the pain began from surg 5 weeks ago . The pain is described as continuous. 07/11 01:38 SEPSIS SCREEN: A Confirmed or Suspected Infection is [facility] Unknown, SIRS or Sepsis criteria is not [...] medical history. - Social History: Preferred Language: Wallisian Smoking status (Tobacco): Patient admits to using chewing tobacco. Screenin:44 AUDIT 1. How often do you have a drink containing alcohol? [facility] 2 to 3 times a week (3 [...] he had hemorrhoidectomy and fistula repair on [facility] 06/05/19 with a vessel loop inserted into [...] cm); Pain 10/10; 07/11 00:52 Pain 9/10; [facility] 01:36 BP 137 / 89; Pulse 88; Resp 18; Pulse Ox 98% on R/A; Pain [facility] 0/10; 07/10 23:07 Body Mass Index 30.24 (115.67 kg, 195.58 cm) [facility] ED Course: 07/10 22:56 Patient arrived in ED. tb1 23:00 Monik Zarco MD is Private Physician. [facility] 23:05 Triage completed. [facility] 23:10 Arm band placed on right wrist. [facility] 23:32 Daniel Macedo, RN is Primary Nurse. [facility] 23:43 Imtiaz Riley PA is PHCP. w 23:43 Johnny Patterson DO is Attending Physician. [facility] 07/11 01:20 Dr. Franz removed vessel loop from pt's rectum without [facility] difficulty, pt tolerated procedure well. 01:33 Monik Zarco MD is Referral Physician. [facility] 01:35 Radiology: None performed. [facility] 01:36 No diagnostic tests ordered. [facility] 01:38 Patient has correct armband on for positive identification. [facility] Bed in low position. Call light in reach. Administered Medications: 00:14 Drug: HYDROmorphone 1 mg [hydromorphone 1 mg/mL injection [facility] syringe (1 mL)] Route: IM; Site: right deltoid; 00:52 Follow up: Pain 9/10 Adult; Response: Pain is decreased [facility] Outcome: 01:34 Discharge ordered by . [facility] 01:37 Patient verbalized understanding of disposition [facility] instructions. Patient has no functional deficits. 01:37 Patient discharged to home ambulatory. 01:37 Condition: improved 01:37 Discharge instructions given to patient, No prescriptions given. 01:37 Vitals are Complete in accordance with Emergency Department Policy. 01:38 Patient left the ED. [facility] Signatures: Anca Avelar RN RN Alesha Levin tb1 Imtiaz Riley PA PA wCharis Martínez RN RN Daniel Stephen RN RN [facility] Corrections: (The following items were deleted from [...] rce(s) Supporting Document(s) ID Date Data Source [id number] 07/16/2019 05:34:00 AM [facility] 3 hour post Lactic if elevated? Y Name Value Range Interpretation Code Description Data Kat rce(s) Supporting Document(s) Blood Culture-Venous [facility] ID Date Data Source [id number] 07/16/2019 05:34:00 AM [facility] 3 hour post Lactic if elevated? Y Name Value Range Interpretation Code Description Data Kat rce(s) Supporting Document(s) Blood Culture-Venous [facility] ID Date Data Source [id number] 07/11/2019 01:22:00 AM [facility] 3 hour post Lactic if elevated? Y Name Value Range Interpretation Code Description Data Kat rce(s) Supporting Document(s) Lactic Acid 0.4-2.0 Normal (applies to non-numeric resu lts) [facility] ID Date Data Source [id number] 07/11/2019 01:19:00 AM [facility] 3 hour post Lactic if elevated? Y Name Value Range Interpretation Code Description Data Kat rce(s) Supporting Document(s) Sodium 140 mmol/L 137-145 Normal (applies to non-numeric resul ts) [facility] Potassium 3.5-5.1 Normal (applies to non-numeric resul ts) [facility] Chloride 108 mmol/L 98-112 Normal (applies to non-numeric resul ts) [facility] Carbon Dioxide CO2 22.0-33.0 Normal (applies to non-numer ic results) [facility] Anion Gap 4.0-11.0 Normal (applies to non-numeric resul ts) [facility] BUN 12 mg/dL 9-20 Normal (applies to non-numeric resul ts) [facility] Creatinine 0.80-1.50 Normal (applies to non-numeric resul ts) [facility] GFR >60 Normal (applies to non-numeric results) [facility] Result based on MDRD formula. Glucose Level 105 mg/dL 74-99 Above high normal [facility] The reference range is only applicable w hen fasting. Calcium-Uncorrected 8.4-10.2 Normal (applies to non-nume carmina results) [facility] Corrected Calcium 8.4-10.2 Normal (applies to non-numeri c results) [facility] ID Date Data Source [id number] 07/11/2019 01:06:00 AM EST [facility] Name Value Range Interpretation Code Description Data Kat rce(s) Supporting Document(s) White Blood Count 4.8-10.8 Normal (applies to non-numeri c results) [facility] Red Blood Count 4.35-6.08 Normal (applies to non-numeric results) [facility] Hemoglobin 13.0-17.5 Normal (applies to non-numeric resul ts) [facility] Hematocrit 37.7-51.0 Normal (applies to non-numeric resul ts) [facility] Mean Corpuscular Volume 80-94 Normal (applies to non- numeric results) [facility] Mean Corpuscular Hemoglobin 27.0-33.0 Normal (appli es to non-numeric results) [facility] Mean Corpuscular HGB Conc 32.0-36.0 Normal (applies to no n-numeric results) [facility] Red Cell Distribution Width 11.5-14.5 Normal (appli es to non-numeric results) [facility] Platelet Count 275 X10 3/uL 130-450 Normal (applies to non-numeric results) [facility] Mean Platelet Volume 9.6-13.1 Below low normal [facility] Imm Grans% (AUTO) 0.0-2.0 Normal (applies to non-numeri c results) [facility] Neutrophils % (AUTO) 43.0-75.0 Normal (applies to non-num bigg results) [facility] Lymphocytes % (AUTO) 20.5-45.5 Normal (applies to non-num bigg results) [facility] Monocytes % (AUTO) 5.5-11.7 Normal (applies to non-numer ic results) [facility] Eosinophils % (AUTO) 0.7-4.6 Normal (applies to non-num bigg results) [facility] Basophils % (AUTO) 0.2-1.2 Normal (applies to non-numer ic results) [facility] Imm Grans# (AUTO) 0.00-0.50 Normal (applies to non-numeri c results) [facility] Neutrophils # (AUTO) 1.90-7.00 Normal (applies to non-num bigg results) [facility] Lymphocytes # (AUTO) 1.30-3.10 Normal (applies to non-num bigg results) [facility] Monocytes # (AUTO) 0.40-0.70 Above high normal [facility] Eosinophils# (AUTO) 0.00-0.30 Above high normal [facility] Basophils # (AUTO) 0.00-0.10 Normal (applies to non-numer ic results) [facility] ID Date Data Source [id number] 07/01/2019 01:20:00 PM EST [facility] Name Value Range Interpretation Code Description Data Kat rce(s) Supporting Document(s) Hepatitis B Core Tot Ab,S res Negative No rmal (applies to non-numeric results) [facility] Test Performed by: [place] [address] Carpet Installer: Chetna Ziegler M.D. Ph.D.; CLIA# [id number] ID Date Data Source [id number] 06/27/2019 05:04:00 PM EST [facility] Name Value Range Interpretation Code Description Data Kat rce(s) Supporting Document(s) Hep C Ab-T Test Nonreactive Normal (applies to non-numeric results) [facility] ID Date Data Source [id number] 06/27/2019 05:04:00 PM EST [facility] Name Value Range Interpretation Code Description Data Kat rce(s) Supporting Document(s) HIV 1/2 Ab p24 Ag Screen Nonreactive Normal (applies to non-numeric results) [facility] ID Date Data Source [id number] 06/27/2019 05:04:00 PM EST [facility] Name Value Range Interpretation Code Description Data Kat rce(s) Supporting Document(s) Syphilis Serology Nonreactive Normal (applies to non-numer ic results) [facility] Procedure Vital Signs ID Date Data Source UNK Name Value Range Interpretation Code Description Data Source(s) Body surface area 2.52 m2 2.52 m2 [facility] ([facility]) Body mass index (BMI) [Ratio] 31.4 kg/m2 31.4 k g/m2 [facility] ([facility]) Body height 77 [in_i] 77 [in_i] [facility] ([facility]) 6'5" pt states Body weight 120.204 kg 120.204 kg [facility] every morning Body weight 265.00 [lb_av] 265.00 [lb_av] [facility] ([facility]) pt states, didnt want to be weighed, sta evans he do Oxygen saturation in Arterial blood by Pulse oximetry 97 % 97 % [facility] Respiratory rate 18 /min 18 /min [facility] ( [facility]) Body temperature 97.1 [degF] 97.1 [degF] [facility] ([facility]) Heart rate 98 /min 98 /min [facility] ([facility]) Diastolic blood pressure 88 mm[Hg] 88 mm[Hg] [facility] ([facility]) Systolic blood pressure 144 mm[Hg] 144 mm[Hg] [facility] ([facility])
[2020-08-19] MEDS: COMBIVENT RESPIMAT 100-20MCG INHALER 4GM INH SCH (20:27)
--- NOTE | 2020-08-19 21:00 | REPVR ---
PROCEDURE INFORMATION: Exam: XR Chest, 1 View Exam date and time: 08/19/2020 8:02 PM Age: 35 years old Clinical indication: Shortness of breath; Additional info: Covid TECHNIQUE: Imaging protocol: XR of the chest Views: 1 view. COMPARISON: No relevant prior studies available. FINDINGS: Lungs: Opacification at the left lung base. Low lung volumes. Pleural space: Unremarkable. No pleural effusion. No pneumothorax. Heart/Mediastinum: Unremarkable. No cardiomegaly. Bones/joints: Degenerative changes of the spine. IMPRESSION: Opacification at the left lung base representing infiltrates. Follow-up is suggested. Electronically signed by: Km Aguirre On 08/19/2020 21:00:54 PM
[2020-08-19 21:15] LABS: VENOUS HCO3 21.3 MEQ/L (23.0-27.0); VENOUS O2 SATURATION 89.3 % (60.0-80.0); VENOUS PARTIAL PRESSURE CO2 32.9 mmHg (38.0-50.0); VENOUS PARTIAL PRESSURE O2 55.2 mmHg (30.0-50.0); VENOUS STANDARD HCO3 22.6 MEQ/L; VENOUS TOTAL CO2 22.4 MEQ/L (24.0-28.0)
[2020-08-19 21:18] LABS: HEMATOCRIT 45.1 % (42.0-52.0); HEMOGLOBIN 15.1 g/dl (13.5-17.5); LYMPH # 0.7 10^3/uL (1.5-5.0); MEAN CORPUSCULAR HEMOGLOBIN 31.7 pg (27.0-33.0); MEAN CORPUSCULAR HGB CONC 33.5 g/dl (32.0-36.5); MEAN CORPUSCULAR VOLUME 94.7 fl (80.0-96.0); MONO # 0.3 10^3/uL (0.0-0.8); MONO % 7.3 % (0.0-5.0); NEUTROPHILS # 2.7 10^3/uL (1.5-8.5); NEUTROPHILS % 73.2 % (36.0-66.0); PLATELET COUNT, AUTOMATED 147 10^3/uL (150-450); RED BLOOD COUNT 4.76 10^6/uL (4.30-6.10); WHITE BLOOD COUNT 3.7 10^3/uL (4.0-10.0)
[2020-08-19] MEDS ORDERED: ACETAMINOPHEN TAB 650MG DOSE (2X325MG) PO ONE (21:30)
[2020-08-19 21:32] LABS: INR 1.02; PROTHROMBIN TIME 13.6 SECONDS (12.5-14.3)
[2020-08-19 21:34] LABS: D-DIMER QUANT 969.83 ng/ml (<500)
[2020-08-19 21:45] LABS: ALBUMIN 3.7 GM/DL (3.2-5.2); ALT/SGPT 96 U/L (12-78); BILIRUBIN,DIRECT 0.2 MG/DL (0.0-0.2); BILIRUBIN,TOTAL 0.5 MG/DL (0.2-1.0); BLOOD UREA NITROGEN 12 MG/DL (7-18); C REACTIVE PROTEIN QUANTITATIV 1.89 MG/DL (0.00-0.30); CALCIUM LEVEL 8.3 MG/DL (8.5-10.1); CARBON DIOXIDE LEVEL 27 MEQ/L (21-32); CHLORIDE LEVEL 98 MEQ/L (98-107); CK-MB VALUE MASS < 1.0 NG/ML (<3.6); CPK CREATINE PHOSPHOKINASE 390 U/L (39-308); CREATININE FOR GFR 0.92 MG/DL (0.70-1.30); FERRITIN 1289 NG/ML (26-388); GLOMERULAR FILTRATION RATE > 60.0 (>60); GLUCOSE, FASTING 97 MG/DL (70-100); LDH LACTATE DEHYDROGENASE 405 U/L (87-241); MB/CK RELATIVE INDEX 0.26 (< OR =4); POTASSIUM SERUM 3.8 MEQ/L (3.5-5.1); SODIUM LEVEL 131 MEQ/L (136-145); THYROID STIMULATING HORMONE 0.656 uIU/ML (0.358-3.740); TOTAL PROTEIN 7.2 GM/DL (6.4-8.2); TROPONIN I < 0.02 NG/ML (< 0.10)
[2020-08-19] MEDS ORDERED: ACET-897 PO (22:24)
[2020-08-19] MEDS ORDERED: MELA2.5C2 PO (22:24)
--- NOTE | 2020-08-19 22:48 | HPEPDOC ---
[facility] [place] Medical History & Physical Date of Admission Aug 19, 2020 Date of Service: Aug 19, 2020 History and Physical CHIEF COMPLAINT: Weakness HISTORY OF PRESENT ILLNESS: 35-year-old male no known past medical history with a known history of Covid confirmed on testing on August 17 onset of symptoms was 5 days ago. Patient presents to the hospital due to progression of his Covid symptoms which include nausea, vomiting, diarrhea fever, chills, decreased appetite, headache and weakness as well as cough productive of clear and yellow sputum. Patient denies chest pain. Tells me his Relafen he lives at home with him is also Covid positive but she is feeling well. PAST MEDICAL/SURGICAL HISTORY: Denies medical problems History of left knee surgery due to torn meniscus 2 anal fistula surgeries 2007 2008 SOCIAL HISTORY: Drinks alcohol socially Denies tobacco use Denies illicit drug use FAMILY HISTORY: Father coronary artery disease Girlfriend who lives at home with him has Covid19 infection currently but is feeling well ALLERGIES: Please see below. REVIEW OF SYSTEMS: 10 point review of systems complete all negative otherwise stated in HPI HOME MEDICATIONS: Please see below. PHYSICAL EXAMINATION: Constitutional: Awake and alert, in no apparent distress ENT: Sclera are clear. Mucosa is moist. Respiratory: Lungs diminished sounds bilaterally, left lower lung base coarse. No respiratory distress. No use of accessory muscles. On 2L oxygen by [place]. Speaks about 5 words at a time before becoming short of breath. Cardiovascular: RRR S1 and S2 are normal, no murmur Gastrointestinal: Abdomen is soft, obese, non distended, non tender Musculoskeletal: No lower extremity edema. Neurologic: No focal neurological deficit. Mental Status: A&O x3, normal affect Skin: Warm, dry LABORATORY DATA: See below. IMAGING: CXR impressions: Opacification at the left lung base representing infiltrates MICROBIOLOGY: Please see below. ASSESSMENT/PLAN 35M COVID+ no known past medical history onset of Covid 5 days ago has been progressively worsening with increased dyspnea and cough fevers and chills, n/v /diarrhea. Possible superimposed bacterial pneumonia, requiring supplemental oxygen admitted for medical management. # Hypoxic respiratory failure 2/2 Covid 19 infection with possible superimposed bacterial pneumonia: - Initial inflammatory markers elevated. Trend inflammatory markers. IV Decadron daily. Lovenox COVID prophylactic dosing due to obesity. Continue supplemental oxygen O2 target 90% or better. Within window for rimdasivir, symptoms onset 5 days ago, started, confirm with ID/pulm tomorrow. LFTs were slightly elevated, continue to monitor LFTs especially while on rimdasivir therapy. ordered liver u/s. - Possible superimposed bacterial pneumonia. Started IV ceftriaxone and azith romycin. Follow blood cultures. follow-up pro-calcitonin if negative can DC Abx. # Hyponatremia: Will give IVF NS 1L only. Recheck Na in am. # DVT prophylaxis: Lovenox COVID prophylactic dose A [facility]ist Vital Signs Vital Signs Date Time Temp Pulse Resp B/P (MAP) Pulse Ox O2 Delivery O2 Flow Rate FiO2 08/19/20 22:01 101.9 101 183/81 (115) 93 Nasal Cannula 2.0 08/19/20 19:04 20 Laboratory Data Labs 24H Laboratory Tests 2 08/19/20 20:53: Immature Granulocyte % (Auto) 0.5, Neutrophils (%) (Auto) 73.2H, Lymphocytes (%) (Auto) 19.0L, Monocytes (%) (Auto) 7.3H, Eosinophils (%) (Auto) 0.0, Basophils (%) (Auto) 0.0, Neutrophils # (Auto) 2.7, Lymphocytes # (Auto) 0.7L, Monocytes # (Auto) 0.3, Eosinophils # (Auto) 0.0, Basophils # (Auto) 0.0, Nucleated Red Blood Cells % (auto) 0.0, Prothrombin Time 13.6, Prothromb Time International Ratio 1.02, D-Dimer, Quantitative 969.83H, Blood Gas Bicarbonate Standard 22.6, Venous Blood pH 7.430, Venous Blood Partial Pressure CO2 32.9L, Venous Blood Partial Pressure O2 55.2H, Venous Blood Total Carbon Dioxide 22.4L, Venous Blood HCO3 21.3L, Venous Blood Oxygen Saturation 89.3H, Venous Blood Base Excess -2.0, Anion Gap 6L, Glomerular Filtration Rate > 60.0, Lactic Acid Level 1.3, Calcium Level 8.3L, Ferritin 1289H, Total Bilirubin 0.5, Direct Bilirubin 0.2, Aspartate Amino Transf (AST/SGOT) 73H, Alanine Aminotransferase (ALT/SGPT) 96H, Alkaline Phosphatase 62, Lactate Dehydrogenase 405H, Total Creatine Kinase 390H, Creatine Kinase MB < 1.0, Creatine Kinase MB Relative Index 0.26, Troponin I < 0.02, C- Reactive Protein, Quantitative 1.89H, Total Protein 7.2, Albumin 3.7, Albumin/Globulin Ratio 1.1, Thyroid Stimulating Hormone (TSH) 0.656 CBC/BMP Laboratory Tests 08/19/20 20:53 Microbiology Microbiology 08/19/20 Blood Culture, Received Pending 08/19/20 Blood Culture, Received Pending Home Medications Scheduled Melatonin (Melatonin) 2.5 Mg Tab.chew, 5 MG PO QHS Scheduled PRN Acetaminophen (Tylenol Extra Strength) 500 Mg Tablet, 1,000 MG PO Q6H PRN for PAIN / FEVER Allergies Coded Allergies: No Known Allergies (Unverified , 03/11/17) A-FIB/CHADSVASC A-FIB History Current/History of A-Fib/PAF?: No MILADYS HAGAN MD Aug 19, 2020 22:48
[2020-08-19] MEDS ORDERED: NS 1,000 ML IV SCH (23:00)
[2020-08-19] MEDS ORDERED: cefTRIAXone SOD 1 GM in D5W MINI-BAG PLUS 50 ML IV SCH (23:00)
--- OUTSIDE RECORDS SUMMARY | 2020-08-19 23:32 | CCD ---
Author Author [facility] Organization [facility] Address Unknown Phone Unavailable Care Team Providers Care Leaflet Or Newspaper Deliverer Name Role Phone Joaquin ROBLES MD Unavailable [...] Unavailable Unavailable Myrna Zarco MD Unavailable Unavailable Mryna Zarco MD Unavailable Unavailable Chance Patrick DO Unavailable Unavailable SILVANO, ABDIRAHMAN PA Unavailable Unavailable SILVANO, ABDIRAHMAN PA Unavailable Unavailable SILVANO, ABDIRAHMAN PA Unavailable Unavailable SILVANO, ABDIRAHMAN PA Unavailable Unavailable SILVANO, ABDIRAHMAN PA Unavailable Unavailable SILVANO, ABDIRAHMAN PA Unavailable Unavailable SILVANO, ABDIRAHMAN PA Unavailable Unavailable SILVANO, ABDIRAHMAN PA Unavailable Unavailable SILVANO, ABDIRAHMAN PA Unavailable Unavailable SILVANO, ABDIRAHMAN PA Unavailable Unavailable [place], Johnny DO Unavailable Unavailable [place], Johnny DO Unavailable Unavailable Leonardo, Johnny DO Unavailable Unavailable Leonardo, Johnny DO Unavailable Unavailable [place], Johnny DO Unavailable Unavailable Varsha Auguste MD Unavailable Unavailable Chance Patrick DO Unavailable Unavailable NOSTROM, CHETNA MANAGER ADMINISTRATIVE Unavailable Unavailable NOSTROM, CHETNA MANAGER ADMINISTRATIVE Unavailable Unavailable NOSTROM, CHETNA MANAGER ADMINISTRATIVE Unavailable Unavailable NOSTROM, CHETNA MANAGER ADMINISTRATIVE Unavailable Unavailable NOSTROM, CHETNA MANAGER ADMINISTRATIVE Unavailable Unavailable NOSTROM, CHETNA MANAGER ADMINISTRATIVE Unavailable Unavailable NOSTROM, CHETNA MANAGER ADMINISTRATIVE Unavailable Unavailable NOSTROM, CHETNA MANAGER ADMINISTRATIVE Unavailable Unavailable NOSTROM, CHETNA MANAGER ADMINISTRATIVE Unavailable Unavailable NOSTROM, CHETNA MANAGER ADMINISTRATIVE Unavailable Unavailable NOSTROM, CHETNA MANAGER ADMINISTRATIVE Unavailable Unavailable NOSTROM, CHETNA MANAGER ADMINISTRATIVE Unavailable Unavailable NOSTROM, CHETNA MANAGER ADMINISTRATIVE Unavailable Unavailable YOUNG, A GEENA WHEEL BRAIDER Unavailable Unavailable YOUNG, A GEENA WHEEL BRAIDER Unavailable Unavailable YOUNG, A GEENA WHEEL BRAIDER Unavailable Unavailable YOUNG, A GEENA WHEEL BRAIDER Unavailable Unavailable YOUNG, A GEENA WHEEL BRAIDER Unavailable Unavailable Yves Arevalo WHEEL BRAIDER Unavailable Unavailable Fabricio CHAVEZ MD Unavailable Unavailable [...] is protected by Article 27-F of the [facility] Public Health law. If you continue you may have access to information: Regarding HIV / AIDS; Provided by facilities licensed or operated by the [facility] Office of Mental Health; or Provided by the [facility] Office for People With Developmental Disabilities. If such information is present, then the following [facility] mandated warning applies: This information [...] law may result in a fine or custodial sentence or both. A general authorization for the release of medical or other information is NOT sufficient authorization for further disc losure. Allergies and Adverse Reactions Type Description Substance Reaction Status Data Source(s ) No Known Drug Allergies No Known Drug Allergies [facility] No Known Environmental Allergies No Known Environmental Al lergies [facility] No Known Food Allergies No Known Food Allergies [facility] Family History Family Member Name Family Member Gender Family Member Status Date o f Status Description Data Source(s) Unknown Male Problem [facility] ([facility]) Encounters Encounter Providers Location Date Indications Data Source(s ) Outpatient Attender: VIJAY [facility]AVEZ [facility] 10/2019 08:14:00 PM EDT - 04/08/2020 08:15:00 PM EDT Z11.59 [facility] Z11.59 Patient discharged. Outpatient Attender: GEENA GRAY [facility] 01:31:00 PM EDT - 03/31/2020 01:32:00 PM EDT Z11.59 [facility] Z11.59 Patient discharged. Emergency Attender: Chetna Ortiz RN PAttender: CHETNA ORTIZ NPAttender: ALEX MARISCAL [facility] 11/29/2019 03:35:00 AM EDT - 11/29/2019 04:12:00 AM EDT COUGH [facility] COUGH Patient discharged. Outpatient Attender: Abdirahman Pimentel PAAttender: ELIZABETH GONZALEZ [facility] 11/09/2019 02:44:00 PM EDT - 11/09/2019 02:45:00 PM EDT R05 [facility] R05 Patient discharged. Outpatient Attender: CARRIE ROBLES MDConsultant: PCP NO 09/11/2019 02:35:00 PM EST - 09/11/2019 02:35:[address] [facility] Emergency Attender: Larisa Auguste MDAttender: Jace gifford MD CPSCAORT-ED 08/07/2019 07:36:00 PM EST - 08/08/2019 02:10:00 AM EST ABDOMINAL PAIN, RECTAL BLEEDING [facility] ABDOMINAL PAIN, RECTAL BLEEDING Patient discharged. Emergency Attender: Chance Patrick DOAttender: Chance trinidad DO [facility] 07/21/2019 10:58:00 PM EST - 07/22/2019 12:16:00 AM EST POST SURGICAL PAIN [facility] POST SURGICAL PAIN Patient discharged. Emergency Attender: Johnny Patterson DOAttender: IMTIAZ RILEY CAR[facility] 07/10/2019 10:55:00 PM EST - 07/11/2019 01:44:00 AM EST RECTAL FOREIGN BODY [facility] RECTAL FOREIGN BODY Patient discharged. Outpatient Attender: Monik Zarco MD [facility] 06/27 10:32:00 AM EST - 06/27/2019 10:33:00 AM EST A63.0 [facility] A63.0 Patient discharged. Emergency Attender: Korin Arevalo FNPAtte nder: Jace Carrillo MDReferrer: Monik Zarco MD [facility] 06/16/2019 09:55:00 AM EST - 06/16/2019 01:02:00 PM EST WEAKNESS/HOT-COLD CHILLS/ANAL FISTUAL REPAIR 06/03 [facility] WEAKNESS/HOT-COLD CHILLS/ANAL FISTUAL RE PAIR 06/03 Patient discharged. Insurance Providers Payer name Policy type / Coverage type Policy ID Covered alliance party ID Covered alliance party's relationship to wallis Policy Wallis Plan Information [employer] [id number] SP [id number] SELF PAY ONLY [id number] SP [id number] [facility] [id number] Other [id number] [facility] [id number] Other [id number] [facility] [place] [id number] 18 [id number] [facility] [place] [id number] 18 [id number] ACTIVE DUTY [id number] SP [id number] [facility] [employer] [id number] Self [id number] SELF PAY UNAVAILABLE UNAVAILA BLE Problems, Conditions, and Diagnoses Code Display Name Description Problem Type Effective Dates Data Source(s) Z20.828 Contact with and (suspected) exposure to other viral communicable diseases CONTACT W AND EXPOSURE TO OTH VIRAL COMMUNICABLE DISEASES Di agnosis 03/31/2020 01:31:00 PM EDT [facility] K605 Anorectal fistula Anorectal fistula Diagnosis 09/11/2019 02:35:00 PM [facility] F17.290 Nicotine dependence, other tobacco produ ct, uncomplicated NICOTINE DEPENDENCE, OTHER TOBACCO PRODUCT, UNCOMPLICATED Diagnosis 08/07 07:36:00 PM [facility] Z09 Encounter for follow-up exam ination after completed treatment for conditions other than malignant neoplasm ENCNTR FOR F/U EXAM AFT TRTMT FOR COND O TH THAN MALIG NEOPLM Diagnosis 08/07/2019 07:36:00 PM [facility] K62.89 Other specified diseases of anus and rec xochitl OTHER SPECIFIED DISEASES OF ANUS AND RECTUM Diagnosis 08/07/2019 07:36:00 PM [facility] Surgeries/Procedures Procedure Description Date Indications Data Source(s) [id number] 11/29/2019 12:00:00 AM EDT [facility] EMERGENCY DEPARTMENT VISIT MODERATE SEVERITY EMERGENCY DEPT VISIT [facility]/CONTRAST MATERIAL CT ABD & PELV W/CONTR AST 08/07/2019 12:00:00 AM [facility] Low osmolar contrast material, 300-399 mg/ml iodine concentr ation, per ml 08/07/2019 12:00:00 AM [facility] CULTURE BACTERIAL BLOOD AEROBIC W/ID ISOLATES BLOOD CULTURE FOR BACTERIA 08/07/2019 12:00:00 AM [facility] BLOOD COUNT COMPLETE AUTO&AUTO DIFRNTL WBC COUNT COMPLETE CB C W/AUTO DIFF WBC 08/07/2019 12:00:00 AM [facility] LACTATE ASSAY OF LACTIC ACID 08/07/2019 12:00:00 AM [facility] C-REACTIVE PROTEIN C-REACTIVE PROTEIN 08/07/2019 12:00:00 AM [facility] COMPREHENSIVE METABOLIC PANEL COMPREHEN METABOLIC PANEL 09/2019 12:00:00 AM [facility] COLLECTION VENOUS BLOOD VENIPUNCTURE ROUTINE VENIPUNCTURE 12:00:00 AM [facility] EMERGENCY DEPARTMENT VISIT HIGH/URGENT SEVERITY EMERGENCY DE PT VISIT 08/07/2019 12:00:00 AM [facility] EMERGENCY DEPARTMENT VISIT LIMITED/MINOR PROB EMERGENCY DEPT VISIT 07/21/2019 12:00:00 AM [facility] Results ID Date Data Source [id number] 04/11/2020 10:53:00 AM EDT [facility] COVID-19 Patient Ethnicity Not or LatinoCOVID-19 Patient Race WhiteCOVID-19 Specimen Source Nasopharyngeal Name Value Range Interpretation Code Description Data Kat rce(s) Supporting Document(s) SARS-CoV-2 RNA Undetected Normal (applies to non-numeric r esults) [facility] SARS-CoV-2 RNA absent. This result does not rule out COVID-19 in the patient, as the sensitivity of the test depends on the timing of the specimen collection and the quality of the specimen. Result should be correlated with patient's history and clinical presentation. Patient Race Normal (applies to non-numeric res ults) [facility] Patient Ethnicity Normal (applies to non-numeri c results) [facility] Method Summary Normal (applies to non-numeric r esults) [facility] BELLA- This test uses the bella SARS-CoV -2 assay ([employer] and is performed on the bella 6800 System. It has received Emergency Use Authorization (EUA) by the U.S. Food and Drug Administration. Performance characteristics were verified by [facility] in a manner consistent with CLIA requirements. Fact sheets for this Emergency Use Authorization (EUA) can be found at the following links: https://www.fda.gov/media/853209/download for Healthcare Providers https://www.fda.gov/media/433993/download for Patients Test Performed by: [address] [address] Snap Shearer: Chetna Ziegler M.D. Ph.D.; CLIA# [id number] ID Date Data Source [id number] 04/08/2020 02:50:00 PM EDT [facility] Name Value Range Interpretation Code Description Data Kat rce(s) Supporting Document(s) SARS-CoV-2 RNA Resp Ql CONCEPCION+probe [facility] This lab [facility] and reported by [facility]. ID Date Data Source [id number] 03/31/2020 01:31:00 PM EDT [facility] Name Value Range Interpretation Code Description Data Kat rce(s) Supporting Document(s) SARS coronavirus 2 RNA [facility] This lab was ordered by [facility] wong and reported by [facility]. ID Date Data Source [id number] 04/03/2020 08:23:00 AM EDT [facility] Name Value Range Interpretation Code Description Data Kat rce(s) Supporting Document(s) SARS-CoV-2 CONCEPCION result Not Detected Normal (applies to non- numeric results) [facility] This test was developed and its performa nce characteristics determined by [facility]. This test has not been FDA [...] detected) result in this assay. Performed at: [facility] [id number] Snap Shearer: Jessica Lucio MD, Phone: [phone] ID Date Data Source [id number] 11/29/2019 03:35:00 AM EDT [facility] Name: ROHIT HOWARD [facility] Rec #: [id number] : 1985 Age/Sex: 34M Date of Service: 11/29/19 PHYSICIAN CHART Physician Documentation [facility] Name: Rohit Howard Age: 34 yrs Sex: [...] he/she has never smoked tobacco. Preferred Language: Finnish. ROS: 04:03 Constitutional: Negative for fever. Respiratory: [...] rce(s) Supporting Document(s) ID Date Data Source [id number] 11/29/2019 03:35:00 AM EDT [facility] Name: ROHIT HOWARD [facility] Rec #: [id number] : 1985 Age/Sex: 34M Date of Service: 11/29/19 NURSE CHART Nurse's Notes [facility] Name: Rohit Howard Age: 34 yrs Sex: Male : 1985 Arrival Date: 11/29/2019 Time: 03:35 Bed ED-4 Private MD: Nacho Ellington Diagnosis: Cough Presentation: 11/28 03:51 Transition of care: p atient was not received from another [facility] setting of care. Presenting complaint: Patient [...] COVID-19:. 03:51 Method Of Arrival: Walk-In [facility] 03:51 Acuity: Semi-Urgent - 4 [facility] Triage Assessment: 03:52 SEPSIS SCREEN: A Confirmed or Suspected Infection is [facility] Unknown. Suicide Screening: Have you had thoughts [...] he/she has never smoked tobacco. Preferred Language: Finnish. Screenin:55 AUDIT 1. How often do you [...] wn 04:11 Patient verbalized understanding of disposition [facility] instructions. Patient has no functional deficits. Patient [...] rce(s) Supporting Document(s) ID Date Data Source [id number] 11/29/2019 03:35:00 AM EDT [facility] Name: ROHIT HOWARD [facility] Rec #: [id number] : 1985 Age/Sex: 34M Date of Service: 11/29/19 DISPOSITION SUMMARY Discharge Summary [facility] Name:Rohit Howard Emergency Department Age:34 yrs Sex:Male [...] rce(s) Supporting Document(s) ID Date Data Source [id number] 12/01/2019 12:41:00 PM EDT [facility] COVID-19 Specimen Source NASOPHARYNGEAL Is Patient admitted or to be admitted? Y Name Value Range Interpretation Code Description Data Kat rce(s) Supporting Document(s) SARS-CoV-2 RNA Negative Normal (applies to non-numeric r esults) [facility] Performing Lab Normal (applies to non-numeric r esults) [facility] Is Patient Admitted or Awaiting Admissio n?:Y COVID-19 Specimen Source: MANAGER ADMINISTRATIVE NOTE: RESULTS HAVE BEEN REFORMATTED PLEASE REVIEW RESULTS CAREFULLY THE LOCATION OF INFORMATION MAY HAVE CHANGED Test [place] [address] ID Date Data Source [id number] 11/29/2019 12:00:00 AM EDT [facility] Name Value Range Interpretation Code Description Data Kat rce(s) Supporting Document(s) SARS coronavirus 2 RNA:PrThr:Pt:XXX:Ord:Probe.amp.tar [facility] This lab was ordered by [facility] and reported by [facility]. ID Date Data Source [id number] 11/12/2019 05:09:00 PM EDT [facility] COVID-19 Specimen Source NASOPHARYNGEAL Name Value Range Interpretation Code Description Data Kat rce(s) Supporting Document(s) SARS-CoV-2 RNA Undetected Normal (applies to non-numeric r esults) [facility] SARS-CoV-2 RNA is not detected. ------- ADDITIONAL INFORMATION Testing was performed using the bella SARS-CoV-2 assay ([employer] on the bella 6800 System. Fact sheets for this Emergency Use Authorization (EUA) assay can be found at the following links: For Healthcare Providers: https://www.fda.gov/media/020833/download For Patients: https://www.fda.gov/media/421269/download Test Performed by: [facility] [address] [place] [address] Snap Shearer: Chetna Ziegler M.D. Ph.D.; CLIA# [id number] ID Date Data Source [id number] 11/09/2019 06:45:00 PM EDT [facility] REFLEX TO COVID-19 IF NEGATIVE This Res piratory Panel DOES NOT test for the Novel Coronovirus (2019-nCoV) from [facility]. If patient is suspected of having the Novel 2018 Coronovirus notify the Health Department IMMEDIATELY. Not detectedNot detectedNot detectedNot detectedNot detectedNot detectedNot detectedNot detectedNot detectedNot detectedNot detectedNot detectedNot detectedNot detected Methodology: Multiplexed PCR Reference Range: Not detectedNot detectedNot detectedNot detectedNot detected Name Value Range Interpretation Code Description Data Kat rce(s) Supporting Document(s) ID Date Data Source [id number] 11/09/2019 01:33:00 PM EDT [facility] Name Value Range Interpretation Code Description Data Kat rce(s) Supporting Document(s) SARS-CoV-2 RNA Resp Ql CONCEPCION+probe [facility] This lab was ordered by Lyud[facility] back and reported by [facility]. ID Date Data Source [id number] 08/07/2019 07:36:00 PM EST [facility] Name: ROHIT HOWARD [facility] Rec #: [id number] : 1985 Age/Sex: 34M Date of Service: 08/07/19 DISPOSITION SUMMARY Discharge Summary [facility] Name:Rohit Howard Emergency Department Age:34 yrs Sex:Male [...] rce(s) Supporting Document(s) ID Date Data Source [id number] 08/07/2019 07:36:00 PM EST [facility] Name: ROHIT HOWARD [facility] Rec #: [id number] : 1985 Age/Sex: 34M Date of Service: 08/07/19 PHYSICIAN CHART Physician Documentation [facility] Name: Rohit Howard Age: 34 yrs Sex: [...] IV contrast, but until he went to [place] approximately 12 days ago and had a CT scan done with IV and o ral contrast, they were all negative. This most recent time in [place], the CT scan showed an infection in [...] admits to using chewing tobacco, Preferred Language: Finnish. - The history of the events were [...] exam: the spouse/significant other acts as a coil shaper, incision well-healed, no drainage, no erythema. ROSALVA [...] incomplete healing, and then a visit to [place] which showed a infection in the sigmoid [...] rce(s) Supporting Document(s) ID Date Data Source [id number] 08/07/2019 07:36:00 PM EST [facility] Name: ROHIT HOWARD [facility] Rec #: [id number] : 1985 Age/Sex: 34M Date of Service: 08/07/19 NURSE CHART Nurse's Notes [facility] Name: Rohit Howard Age: 34 yrs Sex: [...] admits to using chewing tobacco, Preferred Language: Finnish. - The history of the events were [...] jv2 set of blood cultures drawn by ct. Inserted saline lock: 18 gauge in right [...] attempted, no answer js Signatures: Tommy Salgado, RN Syeda Maciel RN RN js [...] Name Value Range Interpretation Code Description [facility] Supporting Document(s) ID Date Data Source [id number] 08/08/2019 12:32:00 AM EST [facility] Name Value Range Interpretation Code Description Data [facility] rce(s) Supporting Document(s) Sodium 139 mmol/L 137-145 Normal (applies to non-numeric resul ts) [facility] Potassium 3.5-5.1 Normal (applies to non-numeric resul ts) [facility] Chloride 106 mmol/L 98-112 Normal (applies to non-numeric resul ts) [facility] Carbon Dioxide CO2 22.0-33.0 Normal (applies to non-numer ic results) [facility] Anion Gap 4.0-11.0 Normal (applies to non-numeric resul ts) [facility] BUN 9 mg/dL 9-20 Normal (applies to non-numeric resul ts) [facility] Creatinine 0.80-1.50 Normal (applies to non-numeric resul ts) [facility] GFR >60 Normal (applies to non-numeric results) [facility] Result based on MDRD formula. Glucose Level 94 mg/dL 74-99 Normal (applies to non-numeric re sults) [facility] The reference range is only applicable w hen fasting. Calcium-Uncorrected 8.4-10.2 Normal (applies to non-nume carmina results) [facility] Corrected Calcium 8.4-10.2 Normal (applies to non-numeri c results) [facility] Bilirubin,Total 0.2-1.3 Normal (applies to non-numeric results) [facility] SGOT(AST) 133 U/L 17-59 Above high normal [facility] SGPT(ALT) 197 U/L 21-72 Above high normal [facility] Alkaline Phosphatase 62 U/L 38-126 Normal (applies to non-num bigg results) [facility] can increase Alkaline Phosp le vels up to 2 times the normal adult value. Normal values for children and adolescents are 2 to 3 times the normal adult value. Total Protein 6.3-8.2 Normal (applies to non-numeric re sults) [facility] Albumin 3.5-5.0 Normal (applies to non-numeric resul ts) [facility] ID Date Data Source [id number] 08/08/2019 12:32:00 AM [facility] Name Value Range Interpretation Code Description Data Kat rce(s) Supporting Document(s) C-Reactive Protein,Wide Range <3.00 Normal (applies t o non-numeric results) [facility] ID Date Data Source [id number] 08/12/2019 11:19:00 PM [facility] 3 hour post Lactic if elevated? Y Name Value Range Interpretation Code Description Data Kat rce(s) Supporting Document(s) Blood Culture-Venous [facility] ID Date Data Source [id number] 08/12/2019 11:19:00 PM [facility] 3 hour post Lactic if elevated? Y Name Value Range Interpretation Code Description Data Kat rce(s) Supporting Document(s) Blood Culture-Venous [facility] ID Date Data Source [id number] 08/07/2019 11:48:00 PM [facility] 3 hour post Lactic if elevated? Y Name Value Range Interpretation Code Description Data Kat rce(s) Supporting Document(s) Lactic Acid 0.4-2.0 Normal (applies to non-numeric resu lts) [facility] ID Date Data Source [id number] 08/07/2019 11:24:00 PM [facility] Name Value Range Interpretation Code Description Data Kat rce(s) Supporting Document(s) White Blood Count 4.8-10.8 Normal (applies to non-numeri c results) [facility] Red Blood Count 4.35-6.08 Normal (applies to non-numeric results) [facility] Hemoglobin 13.0-17.5 Normal (applies to non-numeric resul ts) [facility] Hematocrit 37.7-51.0 Normal (applies to non-numeric resul ts) [facility] Mean Corpuscular Volume 80-94 Normal (applies to non- numeric results) [facility] Mean Corpuscular Hemoglobin 27.0-33.0 Normal (appli es to non-numeric results) [facility] Mean Corpuscular HGB Conc 32.0-36.0 Normal (applies to no n-numeric results) [facility] Red Cell Distribution Width 11.5-14.5 Normal (appli es to non-numeric results) [facility] Platelet Count 267 X10 3/uL 130-450 Normal (applies to non-numeric results) [facility] Mean Platelet Volume 9.6-13.1 Below low normal [facility] Imm Grans% (AUTO) 0.0-2.0 Normal (applies to non-numeri c results) [facility] Neutrophils % (AUTO) 43.0-75.0 Normal (applies to non-num bigg results) [facility] Lymphocytes % (AUTO) 20.5-45.5 Normal (applies to non-num bigg results) [facility] Monocytes % (AUTO) 5.5-11.7 Normal (applies to non-numer ic results) [facility] Eosinophils % (AUTO) 0.7-4.6 Normal (applies to non-num bigg results) [facility] Basophils % (AUTO) 0.2-1.2 Normal (applies to non-numer ic results) [facility] Imm Grans# (AUTO) 0.00-0.50 Normal (applies to non-numeri c results) [facility] Neutrophils # (AUTO) 1.90-7.00 Normal (applies to non-num bigg results) [facility] Lymphocytes # (AUTO) 1.30-3.10 Normal (applies to non-num bigg results) [facility] Monocytes # (AUTO) 0.40-0.70 Normal (applies to non-numer ic results) [facility] Eosinophils# (AUTO) 0.00-0.30 Above high normal [facility] Basophils # (AUTO) 0.00-0.10 Normal (applies to non-numer ic results) [facility] ID Date Data Source [id number] 08/08/2019 12:43:00 AM EST [facility] Hospital Name: ROHIT HOWARD : 1985 Age/Sex: 34M Ordering Provider: Larisa Auguste MD Med Rec #: [id number] Reg Status: REG ER Room #: Date of Service: 08/07/19 Report Number: [id number] cc:Larisa Auguste MD; PCP None Send Report [...] 08/08/1942 Dictation Date/Time: 08/08/1942 Transcribed Date/Time: 08/08/1942 Community Arts Officer: Name Value Range Interpretation Code Description Data Kat rce(s) Supporting Document(s) ID Date Data Source [id number] 07/21/2019 10:58:00 PM [facility] Hospital Name: ROHIT HOWARD [facility] Rec #: [id number] : 1985 Age/Sex: 34M Date of Service: 07/21/19 DISPOSITION SUMMARY Discharge Summary [facility] Name:Rohit Howard Emergency Department Age:34 yrs Sex:Male [...] rce(s) Supporting Document(s) ID Date Data Source [id number] 07/21/2019 10:58:00 PM [facility] Hospital Name: ROHIT HOWARD [facility] Rec #: [id number] : 1985 Age/Sex: 34M Date of Service: 07/21/19 PHYSICIAN CHART Physician Documentation [facility] Name: Rohit Howard Age: 34 yrs Sex: [...] agitated because he does not wish Dr. Zaroc to evaluate him again. According to the staff, he was rude to the registration and actually threw his bracelet at her when he found out the Dr. Zarco is blood donor recruiter supervisor. ROS: 00:26 Constitutional: See HPI. All other [...] rce(s) Supporting Document(s) ID Date Data Source [id number] 07/21/2019 10:58:00 PM [facility] Name: ROHIT HOWARD [facility] Rec #: [id number] : 1985 Age/Sex: 34M Date of Service: 07/21/19 NURSE CHART Nurse's Notes [facility] Name: Rohit Howard Age: 34 yrs Sex: Male : 1985 Arrival Date: 07/21/2019 Time: 22:58 Bed Waiting Private MD: Nacho Ellington Diagnosis: Presentation: 07/21 23:02 Transition of care: patient was not received from another [facility] setting of care. Presenting complaint: Patient states - surgery 6 weeks ago-fistula patient has had pain/bleeding since (patient states was [place] MD Zarco performed surgery. Patient denies any travel outside the [place] in the last 30 days. 23:02 Method Of Arrival: Walk-In [facility] 23:02 Acuity: Urgent - 3 [facility] Triage Assessment: 23:07 SEPSIS SCREEN: A [...] Mass Index 29.47 (115.67 kg, 198.12 cm) [facility] ED Course: 22:59 Patient arrived in ED. tb1 23:03 Triage completed. jc3 23:04 Nacho Ellington is Private Physician. 3 23:04 Arm band placed on right wrist. Patient placed in waiting [facility] room Patient has correct armband on [...] rce(s) Supporting Document(s) ID Date Data Source [id number] 07/22/2019 12:41:00 AM EST [facility] Name Value Range Interpretation Code Description Data Kat rce(s) Supporting Document(s) White Blood Count 4.8-10.8 Normal (applies to non-numeri c results) [facility] Red Blood Count 4.35-6.08 Normal (applies to non-numeric results) [facility] Hemoglobin 13.0-17.5 Normal (applies to non-numeric resul ts) [facility] Hematocrit 37.7-51.0 Normal (applies to non-numeric resul ts) [facility] Mean Corpuscular Volume 80-94 Normal (applies to non- numeric results) [facility] Mean Corpuscular Hemoglobin 27.0-33.0 Normal (appli es to non-numeric results) [facility] Mean Corpuscular HGB Conc 32.0-36.0 Normal (applies to no n-numeric results) [facility] Red Cell Distribution Width 11.5-14.5 Normal (appli es to non-numeric results) [facility] Platelet Count 283 X10 3/uL 130-450 Normal (applies to non-numeric results) [facility] Mean Platelet Volume 9.6-13.1 Below low normal [facility] Imm Grans% (AUTO) 0.0-2.0 Normal (applies to non-numeri c results) [facility] Neutrophils % (AUTO) 43.0-75.0 Below low normal [facility] Lymphocytes % (AUTO) 20.5-45.5 Normal (applies to non-num bigg results) [facility] Monocytes % (AUTO) 5.5-11.7 Normal (applies to non-numer ic results) [facility] Eosinophils % (AUTO) 0.7-4.6 Normal (applies to non-num bigg results) [facility] Basophils % (AUTO) 0.2-1.2 Normal (applies to non-numer ic results) [facility] Imm Grans# (AUTO) 0.00-0.50 Normal (applies to non-numeri c results) [facility] Neutrophils # (AUTO) 1.90-7.00 Normal (applies to non-num bigg results) [facility] Lymphocytes # (AUTO) 1.30-3.10 Above high normal [facility] Monocytes # (AUTO) 0.40-0.70 Above high normal [facility] Eosinophils# (AUTO) 0.00-0.30 Above high normal [facility] Basophils # (AUTO) 0.00-0.10 Normal (applies to non-numer ic results) [facility] ID Date Data Source [id number] 07/10/2019 10:55:00 PM EST [facility] Name: ROHIT HOWARD [facility] Rec #: [id number] : 1985 Age/Sex: 34M Date of Service: 07/10/19 DISPOSITION SUMMARY Discharge Summary [facility] Name:Rohit Howard Emergency Department Age:34 yrs Sex:Male [...] rce(s) Supporting Document(s) ID Date Data Source [id number] 07/10/2019 10:55:00 PM [facility] Name: ROHIT HOWARD [facility] Rec #: [id number] : 1985 Age/Sex: 34M Date of Service: 07/10/19 PHYSICIAN CHART Physician Documentation [facility] Name: Rohit Howard Age: 34 yrs Sex: Male : 1985 Arrival Date: 07/10/2019 Time: 22:55 Bed 1 Private MD: Monik Zarco L ED Physician Johnny Patterson Disposition: 07/11 00:38 Attestation: I discussed the plan of care with [facility] Provider and agree with what they have documented. The patient requires specialty care. We will contact the appropriate sales consultant insurance for definitive care. 01:33 Chart complete. [facility] HPI: 00:35 This 34 yrs old Male [...] medical history. - Social History: Preferred Language: Finnish Smoking status (Tobacco): Patient admits to using chewing tobacco. ROS: 00:37 Constitutional: Negative for fever, chills, and weight wjj loss. Abdomen/GI: See HPI. All other systems are negative. Exam: 00:38 Constitutional: This is a well developed, well nourished [facility] patient who is awake, alert, and in [...] Pain 04/15 Adult; Response: Pain is decreased [facility] Disposition Summary: 07/11/19 01:34 Discharge Ordered [...] RN RN skb Daniel Macedo RN RN [facility] Corrections: (The following items were deleted from the chart) 07/10 23:16 23:10 PSHx: knee, left; Anal fissure repair 06/05/19; cmm cmm 23:16 23:10 PSHx: Fistula 2018; 3 times; cmm cmm Name Value Range Interpretation Code Description Data Kat rce(s) Supporting Document(s) ID Date Data Source [id number] 07/10/2019 10:55:00 PM [facility] Name: ROHIT HOWARD [facility] Rec #: [id number] : 1985 Age/Sex: 34M Date of Service: 07/10/19 NURSE CHART Nurse's Notes [facility] Name: Rohit Howard Age: 34 yrs Sex: Male : 1985 Arrival Date: 07/10/2019 Time: 22:55 Bed 1 Private MD: Monik Zarco L Diagnosis: Wound Recheck Presentation: 07/10 23:03 Transition of care: p atient was not received from another [facility] setting of care. Presenting complaint: Patient states - Patient states had removed fistula and hemorrhoids 5 weeks ago. States strings are still there and patient state shaving much pain. Patient denies any travel outside the [place] in the last 30 days. Patient denies exposure to sick international traveler in last 30 days. 23:03 Method Of Arrival: Walk-In [facility] 23:03 Acuity: Semi-Urgent - 4 [facility] Triage Assessment: 23:05 The patient appears to be uncomfortable, The patient is [facility] cooperative. Patient states the pain is currently a 10 / 10 The patient complains of pain in rectal. The patient states the pain began from surg 5 weeks ago . The pain is described as continuous. 07/11 01:38 SEPSIS SCREEN: A Confirmed or Suspected Infection is [facility] Unknown, SIRS or Sepsis criteria is [...] medical history. - Social History: Preferred Language: Finnish Smoking status (Tobacco): Patient admits to using chewing tobacco. Screenin:44 AUDIT 1. How often do you have a drink containing alcohol? [facility] 2 to 3 times a week [...] he had hemorrhoidectomy and fistula repair on [facility] 06/05/19 with a vessel loop inserted [...] cm); Pain 10/10; 07/11 00:52 Pain 9/10; [facility] 01:36 BP 137 / 89; Pulse 88; Resp 18; Pulse Ox 98% on R/A; Pain [facility] 0/10; 07/10 23:07 Body Mass Index 30.24 (115.67 kg, 195.58 cm) [facility] ED Course: 07/10 22:56 Patient arrived in ED. tb1 23:00 Monik Zarco MD is Private Physician. [facility] 23:05 Triage completed. [facility] 23:10 Arm band placed on right wrist. [facility] 23:32 Daniel Macedo, RN is Primary Nurse. [facility] 23:43 Imtiaz Riley PA is PHCP. w 23:43 Johnny Patterson DO is Attending Physician. [facility] 07/11 01:20 Dr. Franz removed vessel loop from pt's rectum without [facility] difficulty, pt tolerated procedure well. 01:33 Monik Zarco MD is Referral Physician. [facility] 01:35 Radiology: None performed. [facility] 01:36 No diagnostic tests ordered. [facility] 01:38 Patient has correct armband on for positive identification. [facility] Bed in low position. Call light in reach. Administered Medications: 00:14 Drug: HYDROmorphone 1 mg [hydromorphone 1 mg/mL injection [facility] syringe (1 mL)] Route: IM; Site: right deltoid; 00:52 Follow up: Pain 9/10 Adult; Response: Pain is decreased [facility] Outcome: 01:34 Discharge ordered by . [facility] 01:37 Patient verbalized understanding of disposition [facility] instructions. Patient has no functional deficits. 01:37 Patient discharged to home ambulatory. 01:37 Condition: improved 01:37 Discharge instructions given to patient, No prescriptions given. 01:37 Vitals are Complete in accordance with Emergency Department Policy. 01:38 Patient left the ED. [facility] Signatures: Anca Avelar RN RN Alesha Levin tb1 Imtiaz Riley PA PA wCharis Martínez RN RN Daniel Stephen RN RN [facility] Corrections: (The following items were deleted [...] rce(s) Supporting Document(s) ID Date Data Source [id number] 07/16/2019 05:34:00 AM [facility] 3 hour post Lactic if elevated? Y Name Value Range Interpretation Code Description Data Kat rce(s) Supporting Document(s) Blood Culture-Venous [facility] ID Date Data Source [id number] 07/16/2019 05:34:00 AM [facility] 3 hour post Lactic if elevated? Y Name Value Range Interpretation Code Description Data Kat rce(s) Supporting Document(s) Blood Culture-Venous [facility] ID Date Data Source [id number] 07/11/2019 01:22:00 AM [facility] 3 hour post Lactic if elevated? Y Name Value Range Interpretation Code Description Data Kat rce(s) Supporting Document(s) Lactic Acid 0.4-2.0 Normal (applies to non-numeric resu lts) [facility] ID Date Data Source [id number] 07/11/2019 01:19:00 AM [facility] 3 hour post Lactic if elevated? Y Name Value Range Interpretation Code Description Data Kat rce(s) Supporting Document(s) Sodium 140 mmol/L 137-145 Normal (applies to non-numeric resul ts) [facility] Potassium 3.5-5.1 Normal (applies to non-numeric resul ts) [facility] Chloride 108 mmol/L 98-112 Normal (applies to non-numeric resul ts) [facility] Carbon Dioxide CO2 22.0-33.0 Normal (applies to non-numer ic results) [facility] Anion Gap 4.0-11.0 Normal (applies to non-numeric resul ts) [facility] BUN 12 mg/dL 9-20 Normal (applies to non-numeric resul ts) [facility] Creatinine 0.80-1.50 Normal (applies to non-numeric resul ts) [facility] GFR >60 Normal (applies to non-numeric results) [facility] Result based on MDRD formula. Glucose Level 105 mg/dL 74-99 Above high normal [facility] The reference range is only applicable w hen fasting. Calcium-Uncorrected 8.4-10.2 Normal (applies to non-nume carmina results) [facility] Corrected Calcium 8.4-10.2 Normal (applies to non-numeri c results) [facility] ID Date Data Source [id number] 07/11/2019 01:06:00 AM EST [facility] Name Value Range Interpretation Code Description Data Kat rce(s) Supporting Document(s) White Blood Count 4.8-10.8 Normal (applies to non-numeri c results) [facility] Red Blood Count 4.35-6.08 Normal (applies to non-numeric results) [facility] Hemoglobin 13.0-17.5 Normal (applies to non-numeric resul ts) [facility] Hematocrit 37.7-51.0 Normal (applies to non-numeric resul ts) [facility] Mean Corpuscular Volume 80-94 Normal (applies to non- numeric results) [facility] Mean Corpuscular Hemoglobin 27.0-33.0 Normal (appli es to non-numeric results) [facility] Mean Corpuscular HGB Conc 32.0-36.0 Normal (applies to no n-numeric results) [facility] Red Cell Distribution Width 11.5-14.5 Normal (appli es to non-numeric results) [facility] Platelet Count 275 X10 3/uL 130-450 Normal (applies to non-numeric results) [facility] Mean Platelet Volume 9.6-13.1 Below low normal [facility] Imm Grans% (AUTO) 0.0-2.0 Normal (applies to non-numeri c results) [facility] Neutrophils % (AUTO) 43.0-75.0 Normal (applies to non-num bigg results) [facility] Lymphocytes % (AUTO) 20.5-45.5 Normal (applies to non-num bigg results) [facility] Monocytes % (AUTO) 5.5-11.7 Normal (applies to non-numer ic results) [facility] Eosinophils % (AUTO) 0.7-4.6 Normal (applies to non-num bigg results) [facility] Basophils % (AUTO) 0.2-1.2 Normal (applies to non-numer ic results) [facility] Imm Grans# (AUTO) 0.00-0.50 Normal (applies to non-numeri c results) [facility] Neutrophils # (AUTO) 1.90-7.00 Normal (applies to non-num bigg results) [facility] Lymphocytes # (AUTO) 1.30-3.10 Normal (applies to non-num bigg results) [facility] Monocytes # (AUTO) 0.40-0.70 Above high normal [facility] Eosinophils# (AUTO) 0.00-0.30 Above high normal [facility] Basophils # (AUTO) 0.00-0.10 Normal (applies to non-numer ic results) [facility] ID Date Data Source [id number] 07/01/2019 01:20:00 PM EST [facility] Name Value Range Interpretation Code Description Data Kat rce(s) Supporting Document(s) Hepatitis B Core Tot Ab,S res Negative No rmal (applies to non-numeric results) [facility] Test Performed by: [place] [address] Snap Shearer: Chetna Ziegler M.D. Ph.D.; CLIA# [id number] ID Date Data Source [id number] 06/27/2019 05:04:00 PM EST [facility] Name Value Range Interpretation Code Description Data Kat rce(s) Supporting Document(s) Hep C Ab-T Test Nonreactive Normal (applies to non-numeric results) [facility] ID Date Data Source [id number] 06/27/2019 05:04:00 PM EST [facility] Name Value Range Interpretation Code Description Data Kat rce(s) Supporting Document(s) HIV 1/2 Ab p24 Ag Screen Nonreactive Normal (applies to non-numeric results) [facility] ID Date Data Source [id number] 06/27/2019 05:04:00 PM EST [facility] Name Value Range Interpretation Code Description Data Kat rce(s) Supporting Document(s) Syphilis Serology Nonreactive Normal (applies to non-numer ic results) [facility] Procedure Vital Signs ID Date Data Source UNK Name Value Range Interpretation Code Description Data Source(s) Body surface area 2.52 m2 2.52 m2 [facility] ([facility]) Body mass index (BMI) [Ratio] 31.4 kg/m2 31.4 k g/m2 [facility] ([facility]) Body height 77 [in_i] 77 [in_i] [facility] ([facility]) 6'5" pt states Body weight 120.204 kg 120.204 kg [facility] every morning Body weight 265.00 [lb_av] 265.00 [lb_av] [facility] ([facility]) pt states, didnt want to be weighed, sta evans he do Oxygen saturation in Arterial blood by Pulse oximetry 97 % 97 % [facility] Respiratory rate 18 /min 18 /min [facility] ( [facility]) Body temperature 97.1 [degF] 97.1 [degF] [facility] Heart rate 98 /min 98 /min [facility] Diastolic blood pressure 88 mm[Hg] 88 mm[Hg] [facility] Systolic blood pressure 144 mm[Hg] 144 mm[Hg] [facility] ([facility])
[2020-08-20] VITALS (10 sets, daily range): BP systolic 136; BP diastolic 84; O2SAT 86–94
[2020-08-20] MEDS ORDERED: AZITHROMYCIN INJ 500 MG, VIAL MATE ADAPTER 1 EACH in D5W 250 ML IV SCH ×3
[2020-08-20] MEDS ORDERED: REMDESIVIR 200 MG in NS 250 ML IV ONE ×2
[2020-08-20] MEDS: ENOXAPARIN 60MG/0.6ML SYRINGE (J1650 PER 10MG) SC SCH ×2 (00:18→09:34)
--- NOTE | 2020-08-20 00:24 | REPVR ---
PROCEDURE INFORMATION: Exam: US Abdomen, Limited; Right Upper Quadrant Exam date and time: 08/19/2020 11:58 PM Age: 35 years old Clinical indication: Abnormal findings; Abnormal lab test; Abnormal function test of other organs/systems; Additional info: Elevated lfts TECHNIQUE: Imaging protocol: US abdomen. Real time ultrasound with image documentation. Limited exam focused on the right upper quadrant. COMPARISON: CT ABD/PEL W/IV ORAL CONTRAS 07/24/2019 5:31 PM FINDINGS: Limitations: Limited by overlying bowel gas. Liver: Limited evaluation of the liver. Echogenic liver consistent with fatty liver. Gallbladder: Gallbladder wall measures 2.4 mm in thickness. No gallstones. Common bile duct: CBD measures 5.2 mm in diameter. Pancreas: Visualized pancreas is unremarkable. Right kidney: Right kidney measures 13.3 cm in length. No right hydronephrosis. Normal renal echogenicity. Intraperitoneal space: No free fluid. IMPRESSION: 1. Gallbladder is unremarkable. 2. Borderline dilated CBD. Unchanged from prior. 3. Echogenic liver consistent with fatty liver. Electronically signed by: Darren Fraire On 08/20/2020 00:24:17 AM
[2020-08-20] MEDS ORDERED: SODIUM CHLORIDE 0.9% INJ 10 ML SYR IV ONE (02:00)
[2020-08-20 05:09] LABS: BASO % 0.5 % (0.0-1.0); HEMATOCRIT 44.9 % (42.0-52.0); HEMOGLOBIN 14.9 g/dl (13.5-17.5); LYMPH # 0.5 10^3/uL (1.5-5.0); LYMPH % 21.8 % (24.0-44.0); MEAN CORPUSCULAR HEMOGLOBIN 31.8 pg (27.0-33.0); MEAN CORPUSCULAR HGB CONC 33.2 g/dl (32.0-36.5); MEAN CORPUSCULAR VOLUME 95.7 fl (80.0-96.0); MONO # 0.1 10^3/uL (0.0-0.8); MONO % 3.6 % (0.0-5.0); NEUTROPHILS # 1.6 10^3/uL (1.5-8.5); NEUTROPHILS % 73.6 % (36.0-66.0); PLATELET COUNT, AUTOMATED 169 10^3/uL (150-450); RED BLOOD COUNT 4.69 10^6/uL (4.30-6.10); WHITE BLOOD COUNT 2.2 10^3/uL (4.0-10.0)
[2020-08-20 05:37] LABS: D-DIMER QUANT 798.17 ng/ml (<500)
[2020-08-20 05:38] LABS: ALBUMIN 3.5 GM/DL (3.2-5.2); ALT/SGPT 93 U/L (12-78); BILIRUBIN,TOTAL 0.4 MG/DL (0.2-1.0); BLOOD UREA NITROGEN 11 MG/DL (7-18); C REACTIVE PROTEIN QUANTITATIV 2.66 MG/DL (0.00-0.30); CALCIUM LEVEL 7.7 MG/DL (8.5-10.1); CARBON DIOXIDE LEVEL 27 MEQ/L (21-32); CHLORIDE LEVEL 100 MEQ/L (98-107); CREATININE FOR GFR 0.87 MG/DL (0.70-1.30); FERRITIN 1224 NG/ML (26-388); GLOMERULAR FILTRATION RATE > 60.0 (>60); GLUCOSE, FASTING 152 MG/DL (70-100); LDH LACTATE DEHYDROGENASE 410 U/L (87-241); MAGNESIUM LEVEL 2.3 MG/DL (1.8-2.4); POTASSIUM SERUM 4.2 MEQ/L (3.5-5.1); SODIUM LEVEL 136 MEQ/L (136-145); TOTAL PROTEIN 7.3 GM/DL (6.4-8.2)
--- NOTE | 2020-08-20 08:53 | ECGEPIP ---
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
[2020-08-20] MEDS ORDERED: dexameTHASONE 4 MG/ML 1ML VIAL (J1100 PER 1MG) IV SCH (09:00)
[2020-08-20] MEDS ORDERED: LEVO750T14 PO (12:17)
[2020-08-20] MEDS ORDERED: PRED10TA2 PO (12:17)
--- NOTE | 2020-08-20 15:18 | DS.PDOC ---
Discharge Summary General Date of Admission Aug 19, 2020 at 18:51 Date of Discharge august 20, 2020 Attending Physician: SONG CHEN MD Discharge Summary PROCEDURES PERFORMED DURING STAY: [None]. ADMITTING DIAGNOSES: 1. Acute hypoxic respiratory failure 2/2 COVID19 DISCHARGE DIAGNOSES: 1. COVID19 COMPLICATIONS/CHIEF COMPLAINT: Covid+,Hypoxia. HISTORY OF PRESENT ILLNESS: 35-year-old male no known past medical history with a known history of Covid confirmed on testing on August 17 onset of symptoms was 5 days ago. Patient presents to the hospital due to progression of his Covid symptoms which include nausea, vomiting, diarrhea fever, chills, decreased appetite, headache and weakness as well as cough productive of clear and yellow sputum. Patient denies chest pain. Tells me his Relafen he lives at home with him is also Covid positive but she is feeling well. HOSPITAL COURSE: The patient was admitted with progressively worsened nausea, vomiting, diarrhea found to be positive for Covid 19 pneumonia. He was started on IV Decadron, IV ceftriaxone and azithromycin for community-acquired pneumonia coverage, Remdesivir, and IV fluids. He was placed on Covid prophylactic dose of Lovenox as well. Lab findings were significant for mild hyponatremia at 131 and elevated liver enzymes, AST 73 and a LT 96. He underwent liver ultrasound which was significant only for borderline dilated CBD. The patient had no significant right upper quadrant or epigastric abdominal pain. The following morning the patient was on room air and he was able to tolerate food and drink without having nausea vomiting or diarrhea. He was discharged home, instructed to quarantine for the next 14 days, and was given prescriptions for Levaquin and steroid taper. DISCHARGE MEDICATIONS: Please see below. ALLERGIES: Please see below. PHYSICAL EXAMINATION ON DISCHARGE: VITAL SIGNS: Please see below. GENERAL: alert and oriented, in no apparent distress, pleasant and conversant in full sentences. HEENT: PERRL, EOMI, Oral mucous membranes are moist without lesions. NECK: The patient has no noted JVD. No adenopathy is appreciated. No thyromegaly CHEST/LUNGS: Lungs are clear bilaterally without rhonchi, rales, or wheezes. There is no subcutaneous air appreciated. There is no tenderness to the chest wall. HEART: Regular rate and rhythm. No murmurs, rubs, or gallops are appreciated. D istal pulses are 2+. No carotid bruits appreciated. ABDOMEN: Soft, nontender, and nondistended. Bowel sounds are positive. No organomegaly is appreciated. No masses are appreciated. There are no peritoneal signs. There is no [place] sign. EXTREMITIES: No peripheral edema. There is no focal long bone tenderness or deformity. SKIN: The patients skin is warm and dry, without rashes or lesions. PSYCHIATRIC: AAO x 3, normal mood/affect NEUROLOGIC: The patient has 5/5 strength to the upper and lower extremities bilaterally. Sensation is intact throughout. Deep tendon reflexes are 2+ in all four extremities. There are no deficits to the cranial nerves. LABORATORY DATA: Please see below. IMAGING: LIVER US: FINDINGS: Limitations: Limited by overlying bowel gas. Liver: Limited evaluation of the liver. Echogenic liver consistent with fatty liver. Gallbladder: Gallbladder wall measures 2.4 mm in thickness. No gallstones. Common bile duct: CBD measures 5.2 mm in diameter. Pancreas: Visualized pancreas is unremarkable. Right kidney: Right kidney measures 13.3 cm in length. No right hydronephrosis. Normal renal echogenicity. Intraperitoneal space: No free fluid. IMPRESSION: 1. Gallbladder is unremarkable. 2. Borderline dilated CBD. Unchanged from prior. 3. Echogenic liver consistent with fatty liver. CXR: FINDINGS: Lungs: Opacification at the left lung base. Low lung volumes. Pleural space: Unremarkable. No pleural effusion. No pneumothorax. Heart/Mediastinum: Unremarkable. No cardiomegaly. Bones/joints: Degenerative changes of the spine. IMPRESSION: Opacification at the left lung base representing infiltrates. Follow-up is suggested. PROGNOSIS: Fair ACTIVITY: [As tolerated]. DIET: As tolerated, regular DISCHARGE PLAN: Remain compliant with treatment plan and medications Return to the ER if you experience any problems DISPOSITION: Home DISCHARGE INSTRUCTIONS: 1. Quarantine for the next 14 days 2. Follow up with her PCP after 14 days. 3. Continue course of Levaquin for community-acquired pneumonia coverage and steroid taper 4. Return to ED should her symptoms worsen ITEMS TO FOLLOWUP ON ON OUTPATIENT: 1. Elevated LFTs DISCHARGE CONDITION: [Stable]. TIME SPENT ON DISCHARGE: 40 minutes. Vital Signs/I&Os Vital Signs Date Time Temp Pulse Resp B/P (MAP) Pulse Ox O2 Delivery O2 Flow Rate FiO2 08/20/20 11:00 91 Room Air 08/20/20 06:00 1.0 08/20/20 02:33 96.1 75 20 136/84 (101) I&O- Last 24 Hours up to 6 AM 08/20/20 06:00 Intake Total 935 ml Output Total 700 ml Balance 235 ml Laboratory Data Labs 24H Laboratory Tests 2 08/19/20 20:53: Immature Granulocyte % (Auto) 0.5, Neutrophils (%) (Auto) 73.2H, Lymphocytes (%) (Auto) 19.0L, Monocytes (%) (Auto) 7.3H, Eosinophils (%) (Auto) 0.0, Basophils (%) (Auto) 0.0, Neutrophils # (Auto) 2.7, Lymphocytes # (Auto) 0.7L, Monocytes # (Auto) 0.3, Eosinophils # (Auto) 0.0, Basophils # (Auto) 0.0, Nucleated Red Blood Cells % (auto) 0.0, Prothrombin Time 13.6, Prothromb Time International Ratio 1.02, D-Dimer, Quantitative 969.83H, Blood Gas Bicarbonate Standard 22.6, Venous Blood pH 7.430, Venous Blood Partial Pressure CO2 32.9L, Venous Blood Partial Pressure O2 55.2H, Venous Blood Total Carbon Dioxide 22.4L, Venous Blood HCO3 21.3L, Venous Blood Oxygen Saturation 89.3H, Venous Blood Base Excess -2.0, Anion Gap 6L, Glomerular Filtration Rate > 60.0, Lactic Acid Level 1.3, Calcium Level 8.3L, Ferritin 1289H, Total Bilirubin 0.5, Direct Bilirubin 0.2, Aspartate Amino Transf (AST/SGOT) 73H, Alanine Aminotransferase (ALT/SGPT) 96H, Alkaline Phosphatase 62, Lactate Dehydrogenase 405H, Total Creatine Kinase 390H, Creatine Kinase MB < 1.0, Creatine Kinase MB Relative Index 0.26, Troponin I < 0.02, C- Reactive Protein, Quantitative 1.89H, Total Protein 7.2, Albumin 3.7, Albumin/Globulin Ratio 1.1, Thyroid Stimulating Hormone (TSH) 0.656 08/20/20 04:24: Immature Granulocyte % (Auto) 0.5, Neutrophils (%) (Auto) 73.6H, Lymphocytes (%) (Auto) 21.8L, Monocytes (%) (Auto) 3.6, Eosinophils (%) (Auto) 0.0, Basophils (%) (Auto) 0.5, Neutrophils # (Auto) 1.6, Lymphocytes # (Auto) 0.5L, Monocytes # (Auto) 0.1, Eosinophils # (Auto) 0.0, Basophils # (Auto) 0.0, Nucleated Red Blood Cells % (auto) 0.0, D-Dimer, Quantitative 798.17H, Anion Gap 9, Glomerular Filtration Rate > 60.0, Calcium Level 7.7L, Ferritin 1224H, Total Bilirubin 0.4, Aspartate Amino Transf (AST/SGOT) 74H, Alanine Aminotransferase (ALT/SGPT) 93H, Alkaline Phosphatase 65, Lactate Dehydrogenase 410H, C-Reactive Protein, Quantitative 2.66H, Total Protein 7.3, Albumin 3.5, Albumin/Globulin Ratio 0.9, Fibrinogen 429, Magnesium Level 2.3 CBC/BMP Laboratory Tests 08/19/20 20:53 08/20/20 04:24 Microbiology Microbiology 08/19/20 Blood Culture, Received Pending 08/19/20 Blood Culture, Received Pending Discharge Medications Scheduled Melatonin (Melatonin) 2.5 Mg Tab.chew, 5 MG PO QHS, (Reported) Prednisone (Prednisone) 10 Mg Tablet, 1 TAB PO DAILY 40mg (4 tablets daily) 2 days, 30mg (3 tablets daily) 2 days, 20mg (2 tablets daily) 2 days, 10mg (1 tablet daily) 2 days levoFLOXacin (levoFLOXacin) 750 Mg Tablet, 750 MG PO DAILY Scheduled PRN Acetaminophen (Tylenol Extra Strength) 500 Mg Tablet, 1,000 MG PO Q6H PRN for PAIN / FEVER, (Reported) Allergies Coded Allergies: No Known Allergies (Unverified , 03/11/17) GME ATTESTATION GME ATTESTATION My faculty preceptor for this patient encounter was physically present during the encounter and was fully available. All aspects of the patient interview, examination, medical decision making process, and medical care plan development were reviewed and approved by the faculty preceptor. The faculty preceptor is aware and concurs with the plan as stated in the body of this note and will attest to such by his/her cosignature. ATTENDING NOTE I, Song Chen, have independently examined this patient and performed my own physical exam, as well as reviewed the documentation and edited where necessary. I have discussed in detail with the resident / student the findings and plan of treatment as documented by the resident / student and edited their note. I agree with their findings and treatment plan and have edited their documentation. I will continue to follow the patient during this hospital stay. Time spent on discharge 20 minutes FESTUS KANG MD Aug 20, 2020 15:18 SONG CHEN MD Aug 20, 2020 16:00
[2020-08-21] MEDS ORDERED: REMDESIVIR 100 MG in NS 250 ML IV SCH (04:00)
[2020-08-21] MEDS ORDERED: SODIUM CHLORIDE 0.9% INJ 10 ML SYR IV SCH (05:00)
[2020-08-25 17:22] LABS: MYCOPLASMA PNEUMONIAE IgG 296 U/mL (0-99); MYCOPLASMA PNEUMONIAE IgM <770 U/mL (0-769)
== END 2020-08-20 12:05 | disposition home or self-care (01) ==
LOC: M ED 18:50 → M ED INP 18:51 → M ICU 08-20 02:03
PROVIDERS: ADMIT Family Medicine; ATTEND Family Medicine
DX: U07.1 COVID-19 (principal); J12.82 Pneumonia due to coronavirus disease 2019; J96.01 Acute respiratory failure with hypoxia; E87.1 Hypo-osmolality and hyponatremia; Z79.899 Other long term (current) drug therapy
CPT/HCPCS: 36415; 71045; 76705; 80048; 80053; 80076; 82550; 82553; 82728; 82803; 83605; 83615; 83735; 84145; 84443; 84484; 85025; 85379; 85384; 85610; 86140; 86738; 87040; 93005; 93041; 94640; 94760; 96361; 96365; 96366; 96367; 96372; 96375; 96376; 99285; J0456; J0696; J1100; J1650

== ENCOUNTER 2020-08-27 14:48 | Inpatient (IN) | payer OTHER ==
[~2020-08-27] VITALS: Ht 195.6 cm; Wt 132.3 kg
[~2020-08-27 14:48] MED LIST changes: +ACET-683 PO; +ACET-897 PO; +LEVO750T14 PO; +MELA2.5C2 PO; +PRED10TA2 PO
[2020-08-27 15:38] LABS: VENOUS BASE EXCESS -1.9 (-2.0-2.0); VENOUS HCO3 23.9 MEQ/L (23.0-27.0); VENOUS O2 SATURATION 86.3 % (60.0-80.0); VENOUS PARTIAL PRESSURE O2 54.1 mmHg (30.0-50.0); VENOUS PH 7.352 UNITS (7.330-7.430); VENOUS STANDARD HCO3 22.6 MEQ/L; VENOUS TOTAL CO2 25.2 MEQ/L (24.0-28.0)
[2020-08-27 15:40] LABS: BASO % 0.2 % (0.0-1.0); EOS % 0.2 % (0.0-3.0); HEMOGLOBIN 15.4 g/dl (13.5-17.5); LYMPH # 1.2 10^3/uL (1.5-5.0); MEAN CORPUSCULAR HEMOGLOBIN 31.7 pg (27.0-33.0); MEAN CORPUSCULAR HGB CONC 33.5 g/dl (32.0-36.5); MEAN CORPUSCULAR VOLUME 94.7 fl (80.0-96.0); MONO # 1.4 10^3/uL (0.0-0.8); NEUTROPHILS # 11.6 10^3/uL (1.5-8.5); NEUTROPHILS % 80.6 % (36.0-66.0); PLATELET COUNT, AUTOMATED 496 10^3/uL (150-450); RED BLOOD COUNT 4.86 10^6/uL (4.30-6.10); WHITE BLOOD COUNT 14.4 10^3/uL (4.0-10.0)
[2020-08-27 15:52] LABS: INR 1.04; PROTHROMBIN TIME 13.8 SECONDS (12.5-14.3)
[2020-08-27 15:55] LABS: D-DIMER QUANT 3703.06 ng/ml (<500)
[2020-08-27] MEDS ORDERED: dexameTHASONE 20MG/5ML VIAL (J1100 PER 1MG) IV ONE (16:45)
[2020-08-27] MEDS: COMBIVENT RESPIMAT 100-20MCG INHALER 4GM INH SCH ×2 (17:19→17:38)
[2020-08-27 17:20] LABS: ALBUMIN 3.4 GM/DL (3.2-5.2); ALT/SGPT 85 U/L (12-78); BILIRUBIN,DIRECT 0.3 MG/DL (0.0-0.2); BILIRUBIN,TOTAL 0.7 MG/DL (0.2-1.0); BLOOD UREA NITROGEN 12 MG/DL (7-18); CALCIUM LEVEL 9.3 MG/DL (8.5-10.1); CARBON DIOXIDE LEVEL 28 MEQ/L (21-32); CHLORIDE LEVEL 98 MEQ/L (98-107); CK-MB VALUE MASS < 1.0 NG/ML (<3.6); CPK CREATINE PHOSPHOKINASE 160 U/L (39-308); CREATININE FOR GFR 1.01 MG/DL (0.70-1.30); FERRITIN 994 NG/ML (26-388); GLOMERULAR FILTRATION RATE > 60.0 (>60); GLUCOSE, FASTING 108 MG/DL (70-100); LDH LACTATE DEHYDROGENASE 443 U/L (87-241); MB/CK RELATIVE INDEX 0.62 (< OR =4); NT-PRO BNP 43 PG/ML (<125); POTASSIUM SERUM 4.8 MEQ/L (3.5-5.1); SODIUM LEVEL 133 MEQ/L (136-145); THYROID STIMULATING HORMONE 0.654 uIU/ML (0.358-3.740); TOTAL PROTEIN 8.3 GM/DL (6.4-8.2); TROPONIN I < 0.02 NG/ML (< 0.10)
--- NOTE | 2020-08-27 17:21 | REP ---
INDICATION: DYSPNEA/COUGH. COMPARISON: 08/19/2020 TECHNIQUE: The technique utilized in obtaining the radiograph has magnified the cardiac silhouette and attenuated the interstitial markings. FINDINGS: The cardiomediastinal silhouette is stable. The heart is not enlarged. Patchy airspace opacities again seen throughout the lung mojica status quo. No new abnormal opacities have developed. There is no evidence of a pleural effusion. There is no change in the osseous structures. IMPRESSION: No significant change from the prior exam. <Electronically signed by Osei Sandhu > 08/27/20 1899
[2020-08-27] MEDS ORDERED: ISOVUE-370 76% 100ML VIAL As Ordered ONE (17:24)
--- NOTE | 2020-08-27 18:19 | REPVR ---
PROCEDURE INFORMATION: Exam: CT Angiography Chest With Contrast Exam date and time: 08/27/2020 4:42 PM Age: 35 years old Clinical indication: Other: Hypoxia; Additional info: Covid positive, hypoxia R/O pe TECHNIQUE: Imaging protocol: Computed tomographic angiography of the chest with intravenous contrast. 3D rendering (Not supervised by radiologist): MIP and/or 3D reconstructed images were created by the technologist. Radiation optimization: All CT scans at this facility use at least one of these dose optimization techniques: automated exposure control; mA and/or kV adjustment per patient size (includes targeted exams where dose is matched to clinical indication); or iterative reconstruction. Contrast material: ISOVUE 370; Contrast volume: 75 ml; Contrast route: INTRAVENOUS (IV); COMPARISON: [place] PORTABLE CHEST X-RAY 08/27/2020 4:58 PM FINDINGS: Pulmonary arteries: Peripheral pulmonary artery evaluation significantly limited by gross cardiac and respiratory motion artifact. Central pulmonary arteries show no intraluminal defect suggestive of clot. Aorta: No thoracic aortic aneurysm or dissection. Lungs: Pulmonary vascular/interstitial pattern does not suggest active pulmonary edema. Multifocal airspace infiltrates are present bilaterally in a pattern consistent with COVID-19 pneumonia. No central endobronchial lesion. Pleural space: No pleural effusion or pneumothorax. Heart: No overt cardiac enlargement or abnormal volume of pericardial fluid. . Lymph nodes: No bulky mediastinal lymphadenopathy. Small mediastinal and hilar nodes are present measuring up to 11 mm. Liver: Liver is decreased in density, consistent with fatty infiltration. Bones/joints: Bony structures show no acute fracture or destructive process. Soft tissues: Unremarkable. IMPRESSION: 1. Limited pulmonary arterial evaluation secondary to gross patient motion. No main pulmonary artery clot, but the evaluation is essentially nondiagnostic from the standpoint of evaluation of the pulmonary arteries. 2. Multifocal peripheral pneumonia in a pattern suggestive of COVID-19. Electronically signed by: Cristóbal Mcghee On 08/27/2020 18:18:58 PM
[2020-08-27] MEDS ORDERED: MELATAB3 PO (19:02)
[2020-08-27] MEDS ORDERED: VITMTA PO (19:02)
[2020-08-27] MEDS ORDERED: MORPHINE 2 MG/ML 1ML VIAL (J2270) IV ONE (19:30)
[2020-08-27] MEDS ORDERED: HALOPERIDOL 5MG/ML VIAL (J1630 PER 1) IM ONE (20:45)
[2020-08-27] MEDS ORDERED: ENOXAPARIN 100MG/1ML SYRINGE (J1650 PER 10MG) SC SCH (21:00)
--- NOTE | 2020-08-27 21:10 | ECGEPIP ---
[facility] - ED Test Date: 2020-08-27 Pat Name: MARIA T MASON Department: Room: - Gender: Male County Director Welfare: ISIDRO : [id number] Requested By: RIKKI Pinedo Order Number: [id number] Reading MD: Charis Lazaro Measurements Intervals [place] Rate: 119 P: 22 [place]: 182 QRS: -14 QRSD: 81 T: 32 QT: 311 QTc: 439 Interpretive Statements SINUS TACHYCARDIA ANTEROSEPTAL MYOCARDIAL INFARCTION, OF INDETERMINATE AGE NSTTW abnormalities INCREASED RATE 08/19/20 Electronically Signed on 08-27-2020 21:10:06 EST by Charis Lazaro
[2020-08-27] MEDS ORDERED: ACETAMINOPHEN TAB 650MG DOSE (2X325MG) PO PRN (22:15)
--- NOTE | 2020-08-27 23:14 | IPNPDOC ---
Text Note Date of Service The patient was seen on 08/27/20. NOTE time of service 1155pm Mr. Howard is a 35 yr old admitted for sepsis 2/2 COVID 19 PNA. rest per 's H&P VS,Fishbone, I+O VS, Fishbone, I+O Laboratory Tests 08/27/20 15:31 08/27/20 16:31 Vital Signs Date Time Temp Pulse Resp B/P (MAP) Pulse Ox O2 Delivery O2 Flow Rate FiO2 08/27/20 19:30 23 08/27/20 19:04 113 90 Nasal Cannula 2.5 08/27/20 19:00 152/88 (109) 08/27/20 15:10 97.4 JONELLE POPE MD Aug 27, 2020 23:14
[2020-08-28] VITALS (7 sets, daily range): BP systolic 114–154; BP diastolic 70–98
[2020-08-28] MEDS ORDERED: guaiFENesin SYRUP 200 MG/10 ML UDC PO PRN
--- NOTE | 2020-08-28 00:40 | HPEPDOC ---
[facility] Medical History & Physical Date of Admission Aug 27, 2020 Date of Service: Aug 27, 2020 Attending Physician: JONELLE POPE MD History and Physical CHIEF COMPLAINT: shortness of breath Symptom onset: August 14, 2020 COVID+ date: August 17, 2020 HISTORY OF PRESENT ILLNESS: Rohit Howard is a 35-year-old male with no significant past medical history who presents for second admission (first adm ission 08/19/2020 until 08/20/2020) for Covid 19 pneumonia. On initial admission, the patient complained of nausea, vomiting, diarrhea, fever and chills. He was not found to be hypoxic at that time. He was treated with empiric ceftriaxone and azithromycin which he continued on discharge. He was also sent home on steroid taper. The patient reports that when he went home and had been feeling very fatigued, had loss of appetite, but overall was feeling somewhat better. The patient reports that 2 days ago he began feeling some chest tightness and restriction of his chest wall making it difficult for him to breathe. He has been coughing but not producing any sputum. He denies any recent fevers, but does report having chills. His GI symptoms have now resolved. He has tried proning at home but finds it somewhat difficult as it is uncomfortable for him. PAST MEDICAL HISTORY: Denies any medical problems PAST SURGICAL HISTORY: History of left knee surgery due to torn meniscus To anal fistula surgeries: 2007, 2008 SOCIAL HISTORY: Drinks alcohol socially Denies tobacco use Denies illicit drug use FAMILY HISTORY: Reviewed and noncontributory ALLERGIES: Please see below. REVIEW OF SYSTEMS: Constitutional: Reports fatigue, chills ENT/Mouth: Reports some nasal congestion Eyes: No Eye Pain, No Swelling, No Redness, No Foreign Body, No Discharge, No Vision Changes Cardiovascular: Reports chest tightness, inability to take full breaths Respiratory: Reports cough, reports shortness of breath, reports dyspnea on exertion Gastrointestinal: No Nausea, No Vomiting, No Diarrhea, No Constipation, No Pain, No Heartburn, No Anorexia, No Dysphagia, No Hematochezia, No Melena, No Flatulence, No Jaundice Genitourinary: No Dysuria Musculoskeletal: No Arthralgias, No Myalgias, No Joint Swelling, No Joint Stiffness, No Back Pain, No Neck Pain Skin: No Skin Lesions, No Pruritis, No Hair Changes, No Breast/Skin Changes, No Nipple Discharge Neuro: No Weakness, No Numbness, No Paresthesias, No Loss of Consciousness, No Syncope, No Dizziness, No Headache, No Coordination Changes, No Recent Falls Psych: No Anxiety/Panic, No Depression, No Insomnia, No Personality Changes, No Delusions HOME MEDICATIONS: Please see below. PHYSICAL EXAMINATION: VITAL SIGNS: see below GENERAL: alert and oriented, in no apparent distress, pleasant and conversant in full sentences. HEENT: PERRL, EOMI, Oral mucous membranes are moist without lesions. NECK: The patient has no noted JVD. No adenopathy is appreciated. No thyromegaly CHEST/LUNGS: There is decreased breath sounds at the bases bilaterally with scattered rhonchi and wheezes in all lung mojica bilaterally. There is symmetrical chest rise. There is no subcutaneous air HEART: Tachycardic with regular rhythm. No murmurs, rubs, or gallops are appreciated. Distal pulses are 2+. No carotid bruits appreciated. ABDOMEN: Obese, Soft, nontender, and nondistended. Bowel sounds are positive. No organomegaly is appreciated. No masses are appreciated. There are no peritoneal signs. There is no [place] sign. EXTREMITIES: No peripheral edema. There is no focal long bone tenderness or deformity. SKIN: The patients skin is warm and dry, without rashes or lesions. PSYCHIATRIC: AAO x 3, normal mood/affect NEUROLOGIC: The patient has 5/5 strength to the upper and lower extremities bilaterally. Sensation is intact throughout. Deep tendon reflexes are 2+ in all four extremities. There are no deficits to the cranial nerves. LABORATORY DATA: See below. IMAGING: CT ANGIO CHEST: FINDINGS: Pulmonary arteries: Peripheral pulmonary artery evaluation significantly limited by gross cardiac and respiratory motion artifact. Central pulmonary arteries show no intraluminal defect suggestive of clot. Aorta: No thoracic aortic aneurysm or dissection. Lungs: Pulmonary vascular/interstitial pattern does not suggest active pulmonary edema. Multifocal airspace infiltrates are present bilaterally in a pattern consistent with COVID-19 pneumonia. No central endobronchial lesion. Pleural space: No pleural effusion or pneumothorax. Heart: No overt cardiac enlargement or abnormal volume of pericardial fluid. Lymph nodes: No bulky mediastinal lymphadenopathy. Small mediastinal and hilar nodes are present measuring up to 11 mm. Liver: Liver is decreased in density, consistent with fatty infiltration. Bones/joints: Bony structures show no acute fracture or destructive process. Soft tissues: Unremarkable. IMPRESSION: 1. Limited pulmonary arterial evaluation secondary to gross patient motion. No main pulmonary artery clot, but the evaluation is essentially nondiagnostic from the standpoint of evaluation of the pulmonary arteries. 2. Multifocal peripheral pneumonia in a pattern suggestive of COVID-19. CXR: FINDINGS: The cardiomediastinal silhouette is stable. The heart is not enlarged. Patchy airspace opacities again seen throughout the lung mojica status quo. No new abnormal opacities have developed. There is no evidence of a pleural effusion. There is no change in the osseous structures. IMPRESSION: No significant change from the prior exam. MICROBIOLOGY: Please see below. ASSESSMENT: This is a 35-year-old male with no significant past medical history who presents for second admission (first admission 08/19/20-08/20/20) for Covid 19 pneumonia found to be in acute hypoxic respiratory failure. PLAN: 1. Covid 19 pneumonia: -Leukocytois noted at 14.4 -Start IV dexamethasone 6 mg daily -Patient is outside of the window for Remdesivir -Empiric treatment for community-acquired pneumonia: Ceftriaxone and azithromycin -Mycoplasma pneumonia IgG antibody from previous hospitalization noted to be elevated at 296 -Inflammatory markers: Ferritin found to be elevated at 994, LDH 443, CRP elevated at 15, d-dimer elevated at 3703 -CT chest angiography ruled out pulmonary embolism -Lovenox weight-based prophylactic dose, 60 mg every 12 hours -Robitussin for cough -Combivent inhaler -Incentive spirometry encouraged -Encourage awake proning -Continuous pulse oximetry -Titrate O2 for >90% 2. Transaminitis: -Similar presentation to previous hospitalization. Liver ultrasound was not concerning other than borderline dilated CBD. Liver enzymes have not increased incrementally -Will order hepatitis serologies DVT ppx: Lovenox weight based ppx DISPO: pending clinical improvement Vital Signs Vital Signs Date Time Temp Pulse Resp B/P (MAP) Pulse Ox O2 Delivery O2 Flow Rate FiO2 08/27/20 23:19 118 20 96 Nasal Cannula 2.5 08/27/20 21:52 164/93 (116) 08/27/20 19:34 100.2 Laboratory Data Labs 24H Laboratory Tests 2 08/27/20 15:29: Prothrombin Time 13.8, Prothromb Time International Ratio 1.04, D-Dimer, Quantitative 3703.06H 08/27/20 15:31: Immature Granulocyte % (Auto) 1.0, Neutrophils (%) (Auto) 80.6H, Lymphocytes (%) (Auto) 8.0L, Monocytes (%) (Auto) 10.0H, Eosinophils (%) (Auto) 0.2, Basophils (%) (Auto) 0.2, Neutrophils # (Auto) 11.6H, Lymphocytes # (Auto) 1.2L, Monocytes # (Auto) 1.4H, Eosinophils # (Auto) 0.0, Basophils # (Auto) 0.0, Nucleated Red Blood Cells % (auto) 0.0, Blood Gas Bicarbonate Standard 22.6, Venous Blood pH 7.352, Venous Blood Partial Pressure CO2 44.0, Venous Blood Partial Pressure O2 54.1H, Venous Blood Total Carbon Dioxide 25.2, Venous Blood HCO3 23.9, Venous Blood Oxygen Saturation 86.3H, Venous Blood Base Excess -1.9 08/27/20 15:35: Lactic Acid Level 2.1*H 08/27/20 16:31: Anion Gap 7L, Glomerular Filtration Rate > 60.0, Calcium Level 9.3, Ferritin 994H, Total Bilirubin 0.7, Direct Bilirubin 0.3H, Aspartate Amino Transf (AST/SGOT) 79H, Alanine Aminotransferase (ALT/SGPT) 85H, Alkaline Phosphatase 118H, Lactate Dehydrogenase 443H, Total Creatine Kinase 160, Creatine Kinase MB < 1.0, Creatine Kinase MB Relative Index 0.62, Troponin I < 0.02, C-Reactive Protein, Quantitative 15.00H, ET-Hia-B-Type Natriuretic Peptide 43, Total Protein 8.3H, Albumin 3.4, Albumin/Globulin Ratio 0.7, Thyroid Stimulating Hormone (TSH) 0.654 08/27/20 21:28: Lactic Acid Followup at 4 Hours 1.2 CBC/BMP Laboratory Tests 08/27/20 15:31 08/27/20 16:31 Microbiology Microbiology 08/27/20 Blood Culture, Received Pending Home Medications Scheduled Melatonin (Melatonin) 5 Mg Tablet, 5 MG PO QHS Multivitamins (Thera M Plus Tablet) 1 Each Tablet, 1 TAB PO DAILY Scheduled PRN Acetaminophen (Tylenol Extra Strength) 500 Mg Tablet, 1,000 MG PO Q6H PRN for PAIN / FEVER Allergies Coded Allergies: No Known Allergies (Unverified , 03/11/17) A-FIB/CHADSVASC A-FIB History Current/History of A-Fib/PAF?: No Current PO Anticoag Therapy: No GME ATTESTATION GME ATTESTATION My faculty preceptor for this patient encounter was physically present during the encounter and was fully available. All aspects of the patient interview, examination, medical decision making process, and medical care plan development were reviewed and approved by the faculty preceptor. The faculty preceptor is aware and concurs with the plan as stated in the body of this note and will attest to such by his/her cosignature. ATTENDING NOTE time of service 1155pm on Aug 27 2020 Mr. Howard is a 35 yr old admitted for sepsis 2/2 COVID 19 PNA. rest per 's H&P FESTUS KANG MD Aug 27, 2020 23:29 JONELLE POPE MD Aug 28, 2020 04:19
[2020-08-28] MEDS: cefTRIAXone SOD 2 GM in D5W MINI-BAG PLUS 50 ML IV SCH (00:55)
[2020-08-28] MEDS: ENOXAPARIN 60MG/0.6ML SYRINGE (J1650 PER 10MG) SC SCH ×3 (01:45→20:37)
[2020-08-28] MEDS: RAMELTEON 8 MG TAB (ROZEREM) PO PRN ×2 (01:45→20:36)
[2020-08-28] MEDS: AZITHROMYCIN INJ 500 MG, VIAL MATE ADAPTER 1 EACH in D5W 250 ML IV SCH (01:45)
[2020-08-28] MEDS: COMBIVENT RESPIMAT 100-20MCG INHALER 4GM INH SCH ×6 (02:43→20:11)
[2020-08-28 06:14] LABS: HEMATOCRIT 41.1 % (42.0-52.0); HEMOGLOBIN 13.8 g/dl (13.5-17.5); MEAN CORPUSCULAR HGB CONC 33.6 g/dl (32.0-36.5); MEAN CORPUSCULAR VOLUME 95.4 fl (80.0-96.0); PLATELET COUNT, AUTOMATED 466 10^3/uL (150-450); RED BLOOD COUNT 4.31 10^6/uL (4.30-6.10)
[2020-08-28 06:37] LABS: HEMOGLOBIN A1c 5.6 %
[2020-08-28 06:38] LABS: D-DIMER QUANT 3950.21 ng/ml (<500)
[2020-08-28 06:55] LABS: ALBUMIN 2.9 GM/DL (3.2-5.2); ALT/SGPT 125 U/L (12-78); BILIRUBIN,TOTAL 0.4 MG/DL (0.2-1.0); BLOOD UREA NITROGEN 13 MG/DL (7-18); CALCIUM LEVEL 8.8 MG/DL (8.5-10.1); CARBON DIOXIDE LEVEL 29 MEQ/L (21-32); CHLORIDE LEVEL 101 MEQ/L (98-107); CREATININE FOR GFR 0.84 MG/DL (0.70-1.30); FERRITIN 1154 NG/ML (26-388); GLOMERULAR FILTRATION RATE > 60.0 (>60); GLUCOSE, FASTING 137 MG/DL (70-100); LDH LACTATE DEHYDROGENASE 407 U/L (87-241); MAGNESIUM LEVEL 2.5 MG/DL (1.8-2.4); POTASSIUM SERUM 5.1 MEQ/L (3.5-5.1); SODIUM LEVEL 136 MEQ/L (136-145); TOTAL PROTEIN 7.4 GM/DL (6.4-8.2)
[2020-08-28] MEDS: BENZONATATE 100 MG CAP PO SCH ×2 (08:15→16:18)
[2020-08-28] MEDS ORDERED: dexameTHASONE 20MG/5ML VIAL (J1100 PER 1MG) IV ONE (09:00)
--- NOTE | 2020-08-28 17:46 | IPNPDOC ---
Text Note Date of Service The patient was seen on 08/28/20. NOTE Subjective: Patient seen and examined at bedside. Patient states he is feeling better. No new medical complaints. States he feels dehydrated, and is making an effort to drink more fluid. He is anxious to ambulate more. Objective: General: NAD, sitting comfortably at edge of bed, multiple tattoos HEENT: NC/AT, EOMI Lungs: CTA B/L Heart: +S1S2, RRR Abd: soft, obese, NT, +BS Ext: no edema A/P: 35-year-old male with no significant past medical history who presents for sec d admission (first admission 08/19/20-08/20/20) for Covid 19 pneumonia found to be in acute hypoxic respiratory failure. # Covid 19 pneumonia: -Leukocytois slightly higher today - on steroids -IV dexamethasone 6 mg daily - day #2 -Empiric treatment for community-acquired pneumonia: Ceftriaxone and az ithromycin day #2 -Mycoplasma pneumonia IgG antibody from previous hospitalization noted to be elevated at 296 -continue to trend inflammatory markers - elevated on admission - still rising -CT chest angiography ruled out pulmonary embolism -Lovenox weight-based adult based COVID prophylactic dose, 60 mg BID, asa 81 mg daily -Robitussin for cough -Combivent inhaler -Incentive spirometry encouraged -Encourage awake proning -Continuous pulse oximetry -Titrate O2 for >90% - titrated to room air later this evening #Transaminitis/fatty liver disease -Similar to previous hospitalization. Liver ultrasound showed fatty liver, borderline dilated CBD - hepatitis serologies pending #DVT ppx - as above - adult covid prophylactic dosing lovenox DISPO: pending clinical improvement VS,Binhe, I+O VS, Fishbone, I+O Laboratory Tests 08/28/20 06:02 Vital Signs Date Time Temp Pulse Resp B/P (MAP) Pulse Ox O2 Delivery O2 Flow Rate FiO2 08/28/20 16:00 96.6 83 20 117/77 (90) 93 Room Air 08/28/20 14:00 1.0 I&O- Last 24 Hours up to 6 AM 08/28/20 06:00 Intake Total 665 ml Output Total 500 ml Balance 165 ml CECY ASKEW MD Aug 28, 2020 17:10
[2020-08-28] MEDS ORDERED: ASPIRIN 81 MG CHEW TABLET PO ONE (18:00)
[2020-08-29] MEDS: BENZONATATE 100 MG CAP PO SCH ×2 (00:05→09:43)
[2020-08-29] MEDS: cefTRIAXone SOD 2 GM in D5W MINI-BAG PLUS 50 ML IV SCH (00:05)
[2020-08-29] MEDS: COMBIVENT RESPIMAT 100-20MCG INHALER 4GM INH SCH ×4 (00:32→11:25)
[2020-08-29] MEDS: AZITHROMYCIN INJ 500 MG, VIAL MATE ADAPTER 1 EACH in D5W 250 ML IV SCH (01:16)
[2020-08-29 04:01] VITALS: BP 113/64
[2020-08-29 07:04] LABS: HEMOGLOBIN 13.5 g/dl (13.5-17.5); MEAN CORPUSCULAR HEMOGLOBIN 31.9 pg (27.0-33.0); MEAN CORPUSCULAR HGB CONC 32.9 g/dl (32.0-36.5); MEAN CORPUSCULAR VOLUME 96.9 fl (80.0-96.0); PLATELET COUNT, AUTOMATED 448 10^3/uL (150-450); RED BLOOD COUNT 4.23 10^6/uL (4.30-6.10); WHITE BLOOD COUNT 15.9 10^3/uL (4.0-10.0)
[2020-08-29 07:18] LABS: D-DIMER QUANT 3571.07 ng/ml (<500)
[2020-08-29 07:37] LABS: ALBUMIN 2.6 GM/DL (3.2-5.2); ALT/SGPT 99 U/L (12-78); BILIRUBIN,TOTAL 0.2 MG/DL (0.2-1.0); BLOOD UREA NITROGEN 14 MG/DL (7-18); CALCIUM LEVEL 8.7 MG/DL (8.5-10.1); CARBON DIOXIDE LEVEL 29 MEQ/L (21-32); CHLORIDE LEVEL 104 MEQ/L (98-107); CREATININE FOR GFR 0.74 MG/DL (0.70-1.30); FERRITIN 1153 NG/ML (26-388); GLOMERULAR FILTRATION RATE > 60.0 (>60); GLUCOSE, FASTING 111 MG/DL (70-100); LDH LACTATE DEHYDROGENASE 278 U/L (87-241); POTASSIUM SERUM 4.8 MEQ/L (3.5-5.1); SODIUM LEVEL 139 MEQ/L (136-145); TOTAL PROTEIN 6.8 GM/DL (6.4-8.2)
[2020-08-29 09:00] VITALS: BP 122/80
[2020-08-29] MEDS ORDERED: DOXYCYCLINE HYCLATE 100MG TABLET PO SCH (09:00)
[2020-08-29] MEDS ORDERED: predniSONE 20 MG TAB PO SCH (09:00)
[2020-08-29] MEDS: ENOXAPARIN 60MG/0.6ML SYRINGE (J1650 PER 10MG) SC SCH (09:42)
--- NOTE | 2020-08-29 11:44 | DS.PDOC ---
Discharge Summary General Date of Admission Aug 27, 2020 at 19:21 Date of Discharge 08/29/19 Discharge Summary PROCEDURES PERFORMED DURING STAY: [None]. ADMITTING DIAGNOSES: covid-19 transaminitis elevated IgG mycoplasma pneumonia titers DISCHARGE DIAGNOSES: covid-19 transaminitis elevated IgG mycoplasma pneumonia titers COMPLICATIONS/CHIEF COMPLAINT: Covid-19/Sepsis. HISTORY OF PRESENT ILLNESS: Rohit Howard is a 35-year-old male with no significant past medical history who presents for second admission (first admission 08/19/2020 until 08/20/2020) for Covid 19 pneumonia. On initial admission, the patient complained of nausea, vomiting, diarrhea, fever and chills. He was not found to be hypoxic at that time. He was treated with empiric ceftriaxone and azithromycin which he continued on discharge. He was also sent home on steroid taper. The patient reports that when he went home and had been feeling very fatigued, had loss of appetite, but overall was feeling somewhat better. The patient reports that 2 days ago he began feeling some chest tightness and restriction of his chest wall making it difficult for him to breathe. He has been coughing but not producing any sputum. He denies any recent fevers, but does report having chills. His GI symptoms have now resolved. He has tried proning at home but finds it somewhat difficult as it is uncomfortable for him. HOSPITAL COURSE: # Covid 19 pneumonia: -Leukocytois slightly higher today -2 days of IV dexamethasone 6 mg -Empiric treatment for community-acquired pneumonia: Ceftriaxone and azithromycin day #2 - switched to doxy PO -Mycoplasma pneumonia IgG antibody elevated - treat with doxy -continue to trend inflammatory markers - elevated on admission - still rising -CT chest angiography ruled out pulmonary embolism -Lovenox weight-based adult based COVID prophylactic dose, 60 mg BID, asa 81 mg daily -Robitussin for cough -Combivent inhaler -Incentive spirometry encouraged -Encourage awake proning -Continuous pulse oximetry -ambulating on RA, saturating at 94%. -DC home on doxy x 7 days, prednisone #Transaminitis/fatty liver disease -Similar to previous hospitalization. Liver ultrasound showed fatty liver, borderline dilated CBD - hepatitis serologies pending #DVT ppx - as above - adult covid prophylactic dosing lovenox DISCHARGE MEDICATIONS: Please see below. ALLERGIES: Please see below. PHYSICAL EXAMINATION ON DISCHARGE: VITAL SIGNS: Please see below. VITAL SIGNS: please see below General: NAD, comfortable HEENT: PERRLA, EOMI, sclerae clear Neck: supple, normal ROM, no JVD Respiratory: Reduced air entry bilaterally, otherwise clear to auscultation. No wheeze, no rales, no crackles CVS: RRR, normal S1, S2, no murmurs Abdo: soft, no masses, no hepatosplenomegaly, BS+, no rebound tenderness Extremities: no edema, pulses 2+ MSK: no joint deformities, normal ROM Neuro: no focal neuro deficits, moving all 4 extremities, CN2-12 intact. Strength 5/5 in all 4 extremities. No nystagmus. Psych: calm, cooperative, AAO x 3 LABORATORY DATA: Please see below. IMAGING: CXR (08/27/20): FINDINGS: The cardiomediastinal silhouette is stable. The heart is not enlarged. Patchy airspace opacities again seen throughout the lung mojica status quo. No new abnormal opacities have developed. There is no evidence of a pleural effusion. There is no change in the osseous structures. IMPRESSION: No significant change from the prior exam. CTA chest (08/27/20): Pulmonary arteries: Peripheral pulmonary artery evaluation significantly limited by gross cardiac and respiratory motion artifact. Central pulmonary arteries show no intraluminal defect suggestive of clot. Aorta: No thoracic aortic aneurysm or dissection. Lungs: Pulmonary vascular/interstitial pattern does not suggest active pulmonary edema. Multifocal airspace infiltrates are present bilaterally in a pattern consistent with COVID-19 pneumonia. No central endobronchial lesion. Pleural space: No pleural effusion or pneumothorax. Heart: No overt cardiac enlargement or abnormal volume of pericardial fluid. Lymph nodes: No bulky mediastinal lymphadenopathy. Small mediastinal and hilar nodes are present measuring up to 11 mm. Liver: Liver is decreased in density, consistent with fatty infiltration. Bones/joints: Bony structures show no acute fracture or destructive process. Soft tissues: Unremarkable. IMPRESSION: 1. Limited pulmonary arterial evaluation secondary to gross patient motion. No main pulmonary artery clot, but the evaluation is essentially nondiagnostic from the standpoint of evaluation of the pulmonary arteries. 2. Multifocal peripheral pneumonia in a pattern suggestive of COVID-19. PROGNOSIS: good ACTIVITY: As tolerated DIET: regular DISCHARGE PLAN: DC home with antibiotics for suspected mycoplasma pneumonia. PCP follow up. DISPOSITION: home DISCHARGE INSTRUCTIONS: . Please follow-up with your primary care doctor within 3-5 days .. Please taking medications as prescribed. Doxycycline 100 mg by mouth twice per day for 7 days, prednisone 40 mg x 7 days. . If you develop bleeding, chest pain, shortness of breath, seizures, nausea, fevers, or otherwise worsening of your symptoms, please call 911 or return to the nearest emergency room TO FOLLOW UP OUTPATIENT - hepatitis serologies DISCHARGE CONDITION: [Stable]. TIME SPENT ON DISCHARGE: 35 minutes Vital Signs/I&Os Vital Signs Date Time Temp Pulse Resp B/P (MAP) Pulse Ox O2 Delivery O2 Flow Rate FiO2 08/29/20 09:00 97.2 85 17 122/80 (94) 95 Nasal Cannula 1.0 I&O- Last 24 Hours up to 6 AM 08/29/20 06:00 Intake Total 1440 ml Output Total 2050 ml Balance -610 ml Laboratory Data Labs 24H Laboratory Tests 2 08/29/20 06:18: Nucleated Red Blood Cells % (auto) 0.0, Fibrinogen 728H, D-Dimer, Quantitative 3571.07H, Anion Gap 6L, Glomerular Filtration Rate > 60.0, Calcium Level 8.7, Ferritin 1153H, Total Bilirubin 0.2, Aspartate Amino Transf (AST/SGOT) 59H, Al anine Aminotransferase (ALT/SGPT) 99H, Alkaline Phosphatase 94, Lactate Dehydrogenase 278H, C-Reactive Protein, Quantitative 11.20H, Total Protein 6.8, Albumin 2.6L, Albumin/Globulin Ratio 0.6 CBC/BMP Laboratory Tests 08/29/20 06:18 Microbiology Microbiology 08/27/20 Blood Culture - Preliminary, Resulted No growth after 24 hours . All specim... Discharge Medications Scheduled Melatonin (Melatonin) 5 Mg Tablet, 5 MG PO QHS, (Reported) Multivitamins (Thera M Plus Tablet) 1 Each Tablet, 1 TAB PO DAILY, (Reported) Scheduled PRN Acetaminophen (Tylenol Extra Strength) 500 Mg Tablet, 1,000 MG PO Q6H PRN for PAIN / FEVER, (Reported) Allergies Coded Allergies: No Known Allergies (Unverified , 03/11/17) WOJCIECH OLGUIN MD Aug 29, 2020 11:44
[2020-08-29] MEDS ORDERED: PRED20TA PO (12:07)
[2020-08-29] MEDS ORDERED: BENZ-18 PO (12:07)
[2020-08-29] MEDS ORDERED: DOXY100T PO (12:07)
[2020-08-30 11:13] LABS: HEPATITIS B SURFACE ANTIGEN NEGATIVE (NEGATIVE)
[2020-08-30 11:42] LABS: HEPATITIS B CORE ANTIBODY IGM NEGATIVE (NEGATIVE)
[2020-08-30 11:43] LABS: HEPATITIS A ANTIBODY IGM NEGATIVE (NEGATIVE)
== END 2020-08-29 13:30 | disposition home or self-care (01) | DRG 177 ==
LOC: M ED 14:48 → M ED INP 19:21 → M 4MAIN 08-28 00:22
PROVIDERS: ADMIT Internal Medicine; ATTEND Family Medicine
PROC: 3E0333Z Introduction of Anti-inflammatory into Peripheral Vein, Percutaneous Approach (ICD-10-PCS; principal; 2020-08-27)
DX: U07.1 COVID-19 (principal); J12.89 Other viral pneumonia; J15.7 Pneumonia due to Mycoplasma pneumoniae; R74.01 Elevation of levels of liver transaminase levels; K76.0 Fatty (change of) liver, not elsewhere classified

== ENCOUNTER → 2022-03-29 | Outpatient (REF) ==
[~2022-03-29] MED LIST changes: +ALBU8.5H; +BENZ-18 PO; +DOXY100T PO; +ELIQ5TAB4 PO; +MELATAB3 PO; +PRED20TA PO; +VITMTA PO; +WARF-23 PO
== END ==
LOC: M PLAIMG 13:46
PROVIDERS: ATTEND Internal Medicine
DX: R06.02 Shortness of breath (principal)

== ENCOUNTER 2022-06-18 23:10 | Emergency (ER) | payer OTHER ==
[2022-06-18 23:33] LABS: HEMATOCRIT 50.1 % (42.0-52.0); HEMOGLOBIN 17.2 g/dl (13.5-17.5); MEAN CORPUSCULAR HEMOGLOBIN 33.2 pg (27.0-33.0); MEAN CORPUSCULAR HGB CONC 34.3 g/dl (32.0-36.5); MEAN CORPUSCULAR VOLUME 96.7 fl (80.0-96.0); PLATELET COUNT, AUTOMATED 242 10^3/uL (150-450); RED BLOOD COUNT 5.18 10^6/uL (4.30-6.10)
[2022-06-19 00:04] LABS: RSV AMPLIFICATION NEGATIVE (NEGATIVE)
[2022-06-19 01:16] LABS: AMPHETAMINES LEVEL URINE NEGATIVE (NEGATIVE); BARBITURATES URINE NEGATIVE (NEGATIVE); BENZODIAZEPINES URINE NEGATIVE (NEGATIVE); CANNABINOIDS URINE NEGATIVE (NEGATIVE); COCAINE METABOLITE URINE NEGATIVE (NEGATIVE); METHADONE URINE NEGATIVE (NEGATIVE); OPIATES URINE NEGATIVE (NEGATIVE); PHENCYCLIDINE URINE NEGATIVE (NEGATIVE)
[2022-06-19 01:32] LABS: ACETAMINOPHEN LEVEL < 2.0 UG/ML (10.0-30.0); ALBUMIN 4.4 GM/DL (3.2-5.2); ALT/SGPT 253 U/L (12-78); BILIRUBIN,DIRECT 0.2 MG/DL (0.0-0.2); BILIRUBIN,TOTAL 0.4 MG/DL (0.2-1.0); BLOOD UREA NITROGEN 6 MG/DL (7-18); CALCIUM LEVEL 8.3 MG/DL (8.5-10.1); CARBON DIOXIDE LEVEL 21 MEQ/L (21-32); CHLORIDE LEVEL 109 MEQ/L (98-107); CREATININE FOR GFR 0.69 MG/DL (0.70-1.30); ETHYL ALCOHOL (ETHANOL) 0.202 % (0.000-0.010); GLOMERULAR FILTRATION RATE > 60.0 (>60); GLUCOSE, FASTING 114 MG/DL (70-100); POTASSIUM SERUM 4.2 MEQ/L (3.5-5.1); SALICYLATE LEVEL < 1.7 MG/DL (5.0-30.0); SODIUM LEVEL 142 MEQ/L (136-145); TOTAL PROTEIN 8.3 GM/DL (6.4-8.2)
[2022-06-19] MEDS ORDERED: ASPI81TA26 PO (09:14)
[2022-06-19] MEDS ORDERED: HOME MED LIST COMPLETE! XX SCH (09:15)
[2022-06-19] MEDS ORDERED: NICOTINE 21MG/24HR 1 EA TRANSDERMAL TD ONE (13:20)
[2022-06-19 14:28] LABS: APPEARANCE, URINE MANUAL CLEAR (CLEAR); COLOR, URINE MANUAL AMBER (YELLOW)
[2022-06-19 14:29] LABS: BILIRUBIN, URINE MANUAL NEGATIVE (NEGATIVE); BLOOD URINE MANUAL TRACE (NEGATIVE); GLUCOSE, URINE (UA) MANUAL NEGATIVE (NEGATIVE); KETONE, URINE MANUAL NEGATIVE (NEGATIVE); LEUKOCYTE ESTERASE, URINE MAN TRACE (NEGATIVE); NITRITE, URINE MANUAL NEGATIVE (NEGATIVE); PROTEIN, URINE MANUAL TRACE mg/dL (NEGATIVE); UROBILINOGEN, URINE MANUAL NORMAL (NORMAL)
[2022-06-19 14:52] LABS: SQUAMOUS EPITHELIAL CELL URINE SMALL AMOUNT /hpf (SMALL AMT)
[2022-06-19 14:53] LABS: BACTERIA, URINE NONE SEEN; HYALINE CAST, URINE NONE SEEN /lpf (0-1); MUCUS, URINE LARGE AMOUNT (NEGATIVE)
[2022-06-20 08:35] VITALS: BP 158/80
[2022-06-20] MEDS ORDERED: ASPIRIN 81 MG CHEW TABLET PO SCH (09:00)
== END 2022-06-20 08:57 ==
LOC: M ED 23:10
DX: R45.851 Suicidal ideations (principal); F10.129 Alcohol abuse with intoxication, unspecified; R00.0 Tachycardia, unspecified; F43.10 Post-traumatic stress disorder, unspecified; M54.9 Dorsalgia, unspecified; J45.909 Unspecified asthma, uncomplicated